=== PATIENT | female | born 1945 | race Caucasian/White ===

== ENCOUNTER → 2018-01-22 12:56 | Outpatient (CLI) | payer MEDICARE, SELFPAY ==
--- NOTE | 2018-01-22 13:08 | XR_ITS ---
XR chest 2V HISTORY: ITS.REASON: COPD,SHORTNESS OF BREATH ORDERING PHYSICIAN: Robyn Liu PATIENT AGE: 72 years COMPARISON: 06/23/2009 FINDINGS: The cardiomediastinal silhouette and pulmonary vascularity are within normal limits. There is hyperinflation with eventration of the hemidiaphragms consistent with chronic obstructive pulmonary disease. No lobar consolidation or collapse. No acute bony anomalies. IMPRESSION: COPD with hyperinflation. The hyperinflation is worse on today's exam than when compared to the previous exam
[2018-01-22 13:10] LABS: Basophils # 0.1 K/mm3 (0-0.2); Basophils % 0.8 % (0.1-2.0); Eosinophils # 0.2 K/mm3 (0.0-0.4); Eosinophils % 1.9 % (0.1-12.0); Hematocrit 46.3 % (37.0-47.0); Hemoglobin 15.2 g/dL (12.2-16.2); Lymphocytes # 3.4 K/mm3 (0.7-4.5); Lymphocytes % 29.5 K/mm3 (10-50); Mean Corpuscular HGB Conc 32.8 g/dL (31.8-35.4); Mean Corpuscular Hemoglobin 30.2 pg (27.0-31.2); Mean Corpuscular Volume 92.2 fl (81-99); Mean Platelet Volume 7.8 fl (7.4-10.4); Monocytes # 0.8 K/mm3 (0.1-1.0); Monocytes % 6.8 % (1.7-9.3); Platelet Count 305 K/mm3 (142-424); Red Blood Count 5.02 M/mm3 (4.20-5.40); Red Cell Distribution Width 13.3 % (11.5-17.5); White Blood Count 11.5 K/mm3 (4.8-10.8)
[2018-01-22 13:21] LABS: Alanine Aminotransferase 26 U/L (12-78); Albumin Level 3.5 gm/dL (3.4-5.0); Albumin/Globulin Ratio 0.9 (1.1-1.8); Alkaline Phosphatase 97 U/L (46-116); Aspartate Amino Transferase 12 U/L (15-37); Bilirubin,Total 0.4 mg/dL (0.2-1.0); Blood Urea Nitrogen 20 mg/dL (7-18); Calcium 9.5 mg/dL (8.5-10.1); Carbon Dioxide 34 mmol/L (21.0-32.0); Chloride 102 mmol/L (98-107); Creatinine,Serum 0.84 mg/dL (0.55-1.02); Estimated Glomerular Filt Rate 67 ml/min (>60); GFR (African American) 81 ML/MIN (>60); Glucose 169 mg/dL (74-106); Sodium 142 mmol/L (136-145); Total Protein,Serum 7.5 gm/dL (6.4-8.2)
== END ==
PROVIDERS: Visit Provider Nurse Practitioner Family
DX: J44.1 Chronic obstructive pulmonary disease with (acute) exacerbation (principal); R06.02 Shortness of breath
CPT/HCPCS: 36415; 71046; 80053; 85025

== ENCOUNTER 2019-06-25 14:44 | Inpatient (IN) ==
--- NOTE | 2019-06-25 16:08 | History & Physical Report ---
*Admission Date: 06/25/19 *Chief complaint: shortness of breath, weakness *History of present illness: 73 year old female with a long history of restrictive airway disease presented to PCP office with persistent shortness of breath, weakness and malaise. Symptoms began approx 3 weeks ago. She was initially seen on 06/11 for COPD exac and was given Kenalog and Doxycycline x 10 days. She had no improvement of symptoms and returned to the office 3 days ago. She was started Levaquin and prednisone. Today, patient reports minimal improvement of symptoms. 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 No fevers. She has been using neb treatments 4 times a day "which doesn't seem to help." States she is "weak" and feels "exhausted." On exam, she was noted to have oxygen saturations 90% RA which is much lower than her baseline of 95% RA and was extremely dyspneic with minimal exertion. Patient was direct admitted to [facility] for IVF abx and further evaluation. [facility] History I have reviewed the patient's past medical history: Yes Medical History: Reports:: Chronic Obstructive Pulmonary Disease (COPD), Diabetes Mellitus Type 2, Hyperlipidemia, Hypertension, Lung Disease *Have you ever received a pneumonia vaccine?: Yes *Have you received a flu vaccine this season?: No Other Medical History: Reports: Hypothyroidism Other Surgeries: Yes: Other Comment: lithotripsy - *Social History Educational Level: Completed High School Smoking Status: Former smoker Alcohol Intake: never *Occupational Status:: retired *Travel in the last 8 weeks: None Family Hx:: No significant family history Review of Systems - Review of Systems Review of systems:: pertinent systems reviewed and negative unless documented below - Constitutional Reports malaise, Reports weakness - *Respiratory Reports cough, Reports shortness of breath, Reports wheezing Meds Allergies Allergy/AdvReac Type Severity Reaction Status Date / Time No Known Allergies Allergy Unverified 09/09/17 15:13 Exam Narrative: Alert and oriented x3. Rate and rhythm regular. No LE edema. Lung sounds with poor air movement, coarse crackles bilateral bases. Abdomen soft and nontender. ENT exam unremarkable. No cervical LAD. No JVD. Skin, pink, warm and dry. 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 Diabetes mellitus complication status: without complication Qualified Code(s): E11.9 - Type 2 diabetes mellitus without complications Category: Medical Code(s): E11.9 - Type 2 diabetes mellitus without complications (3) Hypothyroid Status: Chronic Qualifiers: Hypothyroidism type: acquired Qualified Code(s): E03.9 - Hypothyroidism, unspecified Category: Medical Code(s): E03.9 - Hypothyroidism, unspecified (4) REAGAN (obstructive sleep apnea) Status: Chronic Category: Medical Code(s): G47.33 - Obstructive sleep apnea (adult) (pediatric) - Assessment and plan all Dx Assessment and Plan for all problems:: Admit on CAP protocol with broad spectrum abx with Zosyn and Tobra.
[2019-06-25 17:42] LABS: Basophils % 0.3 % (0.1-2.0); Hematocrit 42.9 % (37.0-47.0); Hemoglobin 13.1 g/dL (12.2-16.2); Lymphocytes # 1.1 K/mm3 (0.7-4.5); Lymphocytes % 10.2 % (10-50); Mean Corpuscular HGB Conc 30.4 g/dL (31.8-35.4); Mean Corpuscular Volume 98.4 fl (81-99); Mean Platelet Volume 8.8 fl (7.4-10.4); Monocytes # 0.5 K/mm3 (0.1-1.0); Monocytes % 4.4 % (1.7-9.3); Neutrophils # 9.4 K/mm3 (1.8-7.8); Neutrophils % 85.1 % (37.0-80.0); Platelet Count 276 K/mm3 (142-424); Red Blood Count 4.36 M/mm3 (4.20-5.40); Red Cell Distribution Width 14.2 % (11.5-17.5)
[2019-06-25 17:49] LABS: Albumin/Globulin Ratio 0.9 (1.1-1.8); Anion Gap 13.2 mEq/L (5-15); Bilirubin,Total 0.4 mg/dL (0.2-1.0); Calcium 8.9 mg/dL (8.5-10.1); Globulin 3.5 gm/dl (1.3-3.2); Total Protein,Serum 6.5 gm/dL (6.4-8.2)
[2019-06-25 17:56] LABS: Eosinophils % 1 % (0-3); Lymphocytes % 11 % (10-50); Monocytes % 4 % (2-9); Neutrophils % 84 % (42-76); RBC Morphology Normal; Total Cells Counted 100
[2019-06-26 08:18] LABS: Basophils # 0.1 K/mm3 (0-0.2); Basophils % 0.5 % (0.1-2.0); Eosinophils # 0.1 K/mm3 (0.0-0.4); Eosinophils % 0.6 % (0.1-12.0); Hematocrit 44.4 % (37.0-47.0); Hemoglobin 13.1 g/dL (12.2-16.2); Lymphocytes # 4.3 K/mm3 (0.7-4.5); Lymphocytes % 33.2 % (10-50); Mean Corpuscular HGB Conc 29.5 g/dL (31.8-35.4); Mean Corpuscular Volume 99.1 fl (81-99); Mean Platelet Volume 8.6 fl (7.4-10.4); Monocytes # 0.9 K/mm3 (0.1-1.0); Neutrophils # 7.5 K/mm3 (1.8-7.8); Neutrophils % 58.7 % (37.0-80.0); Platelet Count 296 K/mm3 (142-424); Red Blood Count 4.48 M/mm3 (4.20-5.40); Red Cell Distribution Width 14.3 % (11.5-17.5); White Blood Count 12.8 K/mm3 (4.8-10.8)
[2019-06-26 08:42] LABS: Anion Gap 8.7 mEq/L (5-15); Calcium 8.8 mg/dL (8.5-10.1); Tobramycin,Random 1.6 ug/ml
--- NOTE | 2019-06-26 08:48 | Progress Note ---
Internal Medicine - PN: Subj *Date: 06/26/19 *Time: 08:47 Interval history: Patient overall feels some better. Continues to have some tightness when she breathes. No fevers. Exam Vital signs and Labs for Last 24 Hours: Temp Pulse Resp BP Pulse Ox 97.8 F 114 H 18 150/87 H 94 L 06/26/19 08:00 06/26/19 08:00 06/26/19 08:00 06/26/19 08:00 06/26/19 08:00 Laboratory Results - last 24 hr 06/25/19 17:20: WBC 11.0 H, RBC 4.36, Hgb 13.1, Hct 42.9, MCV 98.4, MCH 29.9, MCHC 30.4 L, RDW 14.2, Plt Count 276, MPV 8.8, Neut % (Auto) 85.1 H, Lymph % (Auto) 10.2, [place] % (Auto) 4.4, Eos % (Auto) 0.0 L, Baso % (Auto) 0.3, Neut # (Auto) 9.4 H, Lymph # (Auto) 1.1, [place] # (Auto) 0.5, Eos # (Auto) 0.0, Baso # (Auto) 0.0, Total Counted 100, Neutrophils % (Manual) 84 H, Lymphocytes % (Manual) 11, Monocytes % (Manual) 4, Eosinophils % (Manual) 1, Platelet Estimate Normal, RBC Morphology Normal 06/25/19 17:20: Sodium 137, Potassium 4.2, Chloride 99, Carbon Dioxide 29, Anion Gap 13.2, BUN 20 H, Creatinine 1.27 H, Estimated Creat Clear 54, Estimated GFR 41 L, Est GFR ( Amer) 50 L, Glucose 466 H*, Calcium 8.9, Total Bilirubin 0.4, AST 11 L, ALT 19, Alkaline Phosphatase 72, Total Protein 6.5, Albumin 3.0 L , Globulin 3.5 H, Albumin/Globulin Ratio 0.9 L 06/25/19 20:42: POC Glucose 240 H 06/26/19 00:15: Random Tobramycin 7.8 06/26/19 06:18: POC Glucose 253 H 06/26/19 08:03: WBC 12.8 H, RBC 4.48, Hgb 13.1, Hct 44.4, MCV 99.1 H, MCH 29.2, MCHC 29.5 L, RDW 14.3, Plt Count 296, MPV 8.6, Neut % (Auto) 58.7, Lymph % (Auto) 33.2, [place] % (Auto) 7.0, Eos % (Auto) 0.6, Baso % (Auto) 0.5, Neut # (Auto) 7.5, Lymph # (Auto) 4.3, [place] # (Auto) 0.9, Eos # (Auto) 0.1, Baso # (Auto) 0.1 06/26/19 08:03: Sodium 140, Potassium 3.7, Chloride 103, Carbon Dioxide 32, Anion Gap 8.7, BUN 16, Creatinine 0.95 D, Estimated Creat Clear 70, Estimated GFR 58 L, Est GFR ( Amer) 70 D, Glucose 257 H D, Calcium 8.8, Random Tobramycin 1.6 I & O for Last 24 hours: Intake & Output 06/23/19 06/24/19 06/25/19 06/26/19 11:59 11:59 11:59 11:59 Intake Total 1025 / 1025 Balance 1025 / 1025 Weight 194 lb Microbiology Reports for the Last 24 Hours: Microbiology 06/25/19 18:45 Sputum - Expectorated Sputum Gram Stain - Final 06/25/19 18:45 Sputum - Expectorated Sputum Sputum Culture - Preliminary Narrative: Pleasant. Alert, oriented x3. Lungs have diminished air entry bilaterally, slightly improved over exam middle of last week. Heart rate regular. No distal edema or perfusion deficits. Oropharynx clear. Scleral icterus is not noted, no JVD. Abdomen soft and nontender. Neurologic exam intact Assessment and Plan (1) COPD exacerbation Current visit: No Status: Acute Category: Medical Code(s): J44.1 - Chronic obstructive pulmonary disease with (acute) exacerbation (2) Type 2 diabetes mellitus Current visit: No Status: Chronic Qualifiers: Diabetes mellitus assisted insulin use: without assisted use Diabetes mellitus complication status: without complication Qualified Code(s): E11.9 - Type 2 diabetes mellitus without complications Category: Medical Code(s): E11.9 - Type 2 diabetes mellitus without complications (3) Hypothyroid Current visit: No Status: Chronic Qualifiers: Hypothyroidism type: acquired Qualified Code(s): E03.9 - Hypothyroidism, unspecified Category: Medical Code(s): E03.9 - Hypothyroidism, unspecified (4) REAGAN (obstructive sleep apnea) Current visit: No Status: Chronic Category: Medical Code(s): G47.33 - Obstructive sleep apnea (adult) (pediatric) - Assessment and plan all Dx Assessment and Plan for all problems:: Seems to be improving. I will add steroids given the tight air movement and COPD history. Increase diabetes sliding scale to medium intensity. Upper respiratory PCR to check for viral pathogens given negative chest x-ray. Await sputum culture final result.
[2019-06-26 09:44] LABS: Coronavirus 229E Not Detected (NotDetected); Coronavirus NL63 Not Detected (NotDetected); Coronavirus OC43 Not Detected (NotDetected); Coronovirus HKU1,PCR Not Detected (NotDetected)
--- NOTE | 2019-06-26 10:51 | Pharmacy Consult Notes ---
[facility] Pharmacy VTE Monitoring - Patient Demographics Admission date: 06/26/19 Report Date: 06/26/19 Time: 10:50 Allergies/Adverse Reactions: Patient Allergies No Known Allergies Allergy (Unverified 09/09/17 15:13) Height: 1.57 m Weight: 87.997 kg - VTE Risk Labs: VTE Related Lab Results Hgb 13.1 g/dL (12.2-16.2) 06/26/19 08:03 Hct 44.4 % (37.0-47.0) 06/26/19 08:03 Plt Count 296 K/mm3 (142-424) 06/26/19 08:03 BUN 16 mg/dL (7-18) 06/26/19 08:03 Creatinine 0.95 mg/dL (0.55-1.02) D 06/26/19 08:03 Estimated Creat Clear 70 mL/min (50-200) 06/26/19 08:03 Was VTE Risk Assessment Performed: Yes VTE Score: 4 VTE Risk Level: Low Risk - Prophylaxis Types of VTE Prophylaxis: TEDS Knee High (NILS HOSE ORDER PLACED)
--- NOTE | 2019-06-26 13:21 | Pharmacy Consult Notes ---
- Pharmacy Consult Date: 06/26/19 Time: 13:20 Referring provider: DR. GONSALEZ Reason for Consult:: TOBRAMYCIN DOSING Allergies and ADEs:: Allergies Allergy/AdvReac Type Severity Reaction Status Date / Time No Known Allergies Allergy Unverified 09/09/17 15:13 Home Medications:: Home Medications Medication Instructions Recorded Confirmed Type Budesonide/Formoterol Fumarate 2 puffs IH BID 06/25/19 06/25/19 History [Symbicort 160-4.5 Mcg Inhaler] Levothyroxine Sodium [Synthroid 88 mcg PO DAILY 06/25/19 06/25/19 History 88mcg (0.088mg) tablet] Lisinopril/Hydrochlorothiazide 1 tab PO DAILY 06/25/19 06/25/19 History [Lisinopril-Hctz 10-12.5 mg Tab] Metformin HCl [Metformin 1000mg 1,000 mg PO BIDWM 06/25/19 06/26/19 History Tablets] predniSONE [Deltasone 20mg 20 mg PO DAILY 06/25/19 06/25/19 History tablet] Height: 1.57 m Weight: 87.997 kg Laboratory Results:: Laboratory Results - last 24 hr 06/25/19 17:20: WBC 11.0 H, RBC 4.36, Hgb 13.1, Hct 42.9, MCV 98.4, MCH 29.9, MCHC 30.4 L, RDW 14.2, Plt Count 276, MPV 8.8, Neut % (Auto) 85.1 H, Lymph % (Auto) 10.2, [place] % (Auto) 4.4, Eos % (Auto) 0.0 L, Baso % (Auto) 0.3, Neut # (Auto) 9.4 H, Lymph # (Auto) 1.1, [place] # (Auto) 0.5, Eos # (Auto) 0.0, Baso # (Auto) 0.0, Total Counted 100, Neutrophils % (Manual) 84 H, Lymphocytes % (Manual) 11, Monocytes % (Manual) 4, Eosinophils % (Manual) 1, Platelet Estimate Normal, RBC Morphology Normal 06/25/19 17:20: Sodium 137, Potassium 4.2, Chloride 99, Carbon Dioxide 29, Anion Gap 13.2, BUN 20 H, Creatinine 1.27 H, Estimated Creat Clear 54, Estimated GFR 41 L, Est GFR ( Amer) 50 L, Glucose 466 H*, Calcium 8.9, Total Bilirubin 0.4, AST 11 L, ALT 19, Alkaline Phosphatase 72, Total Protein 6.5, Albumin 3.0 L , Globulin 3.5 H, Albumin/Globulin Ratio 0.9 L 06/25/19 20:42: POC Glucose 240 H 06/26/19 00:15: Random Tobramycin 7.8 06/26/19 06:18: POC Glucose 253 H 06/26/19 08:03: WBC 12.8 H, RBC 4.48, Hgb 13.1, Hct 44.4, MCV 99.1 H, MCH 29.2, MCHC 29.5 L, RDW 14.3, Plt Count 296, MPV 8.6, Neut % (Auto) 58.7, Lymph % (Auto) 33.2, [place] % (Auto) 7.0, Eos % (Auto) 0.6, Baso % (Auto) 0.5, Neut # (Auto) 7.5, Lymph # (Auto) 4.3, [place] # (Auto) 0.9, Eos # (Auto) 0.1, Baso # (Auto) 0.1 06/26/19 08:03: Sodium 140, Potassium 3.7, Chloride 103, Carbon Dioxide 32, Anion Gap 8.7, BUN 16, Creatinine 0.95 D, Estimated Creat Clear 70, Estimated GFR 58 L, Est GFR ( Amer) 70 D, Glucose 257 H D, Calcium 8.8, Random Tobramycin 1.6 06/26/19 09:38: Chlamy pneumoniae PCR Not detected, Adenovirus (PCR) Not detected, B. pertussis DNA (PCR) Not detected, Coronavirus OC43 (PCR) Not detected, Coronavirus HKU1 (PCR) Not detected, Coronavirus 229E (PCR) Not detected, Coronavirus NL63 (PCR) Not detected, Human Metapneumovir PCR Not detected, Influenza A (H1) PCR Not detected, Influ A (H1N1/09) PCR Not detected, Influenza A (H3) PCR Not detected, Influenza Type A (PCR) Not detected, Influenza Type B (PCR) Not detected, M. pneumoniae (PCR) Not detected, Parainfluenza 1 (PCR) Not detected, Parainfluenza 2 (PCR) Not detected, Parainfluenza 3 (PCR) Not detected, Parainfluenza 4 (PCR) Not detected, RSV (PCR) Not detected, Entero/Rhino (PCR) Not detected 06/26/19 11:12: POC Glucose 241 H Medical History: Reports:: Chronic Obstructive Pulmonary Disease (COPD), Diabetes Mellitus Type 2, Hyperlipidemia, Hypertension, Lung Disease Denies:: Cancer, MRSA Assessment and Plan (1) COPD exacerbation Current visit: No Status: Acute Category: Medical Code(s): J44.1 - Chronic obstructive pulmonary disease with (acute) exacerbation (2) Type 2 diabetes mellitus Current visit: No Status: Chronic Qualifiers: Diabetes mellitus intermission coordinator insulin use: without correction use Diabetes mellitus complication status: without complication Qualified Code(s): E11.9 - Type 2 diabetes mellitus without complications Category: Medical Code(s): E11.9 - Type 2 diabetes mellitus without complications (3) Hypothyroid Current visit: No Status: Chronic Qualifiers: Hypothyroidism type: acquired Qualified Code(s): E03.9 - Hypothyroidism, unspecified Category: Medical Code(s): E03.9 - Hypothyroidism, unspecified (4) REAGAN (obstructive sleep apnea) Current visit: No Status: Chronic Category: Medical Code(s): G47.33 - Obstructive sleep apnea (adult) (pediatric) - Assessment and plan all Dx Assessment and Plan for all problems:: BASED ON PATIENT'S TOBRAMYCIN LEVELS OVERNIGHT, RECOMMEND CHANGING DOSING INTERVAL TO Q24H TO START AT 2100 TONIGHT.
[2019-06-27 06:08] LABS: Basophils % 0.1 % (0.1-2.0); Eosinophils % 0.1 % (0.1-12.0); Hematocrit 38.2 % (37.0-47.0); Lymphocytes # 1.2 K/mm3 (0.7-4.5); Lymphocytes % 9.8 % (10-50); Mean Corpuscular HGB Conc 29.6 g/dL (31.8-35.4); Mean Corpuscular Volume 96.8 fl (81-99); Mean Platelet Volume 8.5 fl (7.4-10.4); Monocytes # 0.4 K/mm3 (0.1-1.0); Monocytes % 3.1 % (1.7-9.3); Neutrophils # 10.5 K/mm3 (1.8-7.8); Neutrophils % 86.9 % (37.0-80.0); Platelet Count 265 K/mm3 (142-424); Red Blood Count 3.95 M/mm3 (4.20-5.40); Red Cell Distribution Width 14.2 % (11.5-17.5); White Blood Count 12.1 K/mm3 (4.8-10.8)
[2019-06-27 06:10] LABS: Hemoglobin 11.3 g/dL (12.2-16.2)
[2019-06-27 06:35] LABS: Anion Gap 10.6 mEq/L (5-15); Calcium 8.6 mg/dL (8.5-10.1)
[2019-06-27 06:50] LABS: Hypochromasia 2+; Lymphocytes % 3 % (10-50); Macrocytosis 1+; Monocytes % 1 % (2-9); Neutrophils % 87 % (42-76); Total Cells Counted 100
--- NOTE | 2019-06-27 08:36 | Discharge Summary ---
General - General Admission date:: 06/25/19 Discharge date: 06/27/19 HPI HPI: 73 year old female with a long history of restrictive airway disease presented to PCP office with persistent shortness of breath, weakness and malaise. Symptoms began approx 3 weeks ago. She was initially seen on 06/11 for COPD exac and was given Kenalog and Doxycycline x 10 days. She had no improvement of symptoms and returned to the office 3 days ago. She was started Levaquin and prednisone. Today, patient reports minimal improvement of symptoms. 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 She has been using neb treatments 4 times a day "which doesn't seem to help." States she is "weak" and feels "exhausted." On exam, she was noted to have oxygen saturations 90% RA which is much lower than her baseline of 95% RA and was extremely dyspneic with minimal exertion. Patient was direct admitted to [facility] for IVF abx and further evaluation. Hospital Course Hospital Course: Patient was admitted, placed on broad-spectrum antibiotics and Solu-Medrol, and did well over the next 24 to 42 hours. Labs normalized, oxygen levels improved and she did well on room air oxygen. This morning she was feeling much better, able to move around the room without worsening shortness of air, and was eating breakfast well. She will be discharged home on Augmentin, azithromycin for more anti- inflammatory effect and prednisone. We will follow her up in the office in 4 or 5 days. Objective Vital signs: Temp Pulse Resp BP Pulse Ox 97.9 F 104 H 16 140/77 93 L 06/27/19 04:00 06/27/19 07:37 06/27/19 04:00 06/27/19 04:00 06/27/19 04:00 Narrative: Patient is alert, oriented x3. Oropharynx clear, no JVD. Oropharynx moist and clear. No cranial nerve deficits. Lungs have better air entry bilaterally. Minimal expiratory wheezing but vastly improved. Heart rate regular without murmurs. Abdomen soft nontender. No clubbing or edema. No rash noted. Neurologic exam intact. Results Labs on day of discharge: Labs from last 24 hours 06/27/19 06/27/19 06/27/19 06:06 05:50 05:50 WBC 12.1 H RBC 3.95 L Hgb 11.3 L D Hct 38.2 MCV 96.8 MCH 28.6 MCHC 29.6 L RDW 14.2 Plt Count 265 MPV 8.5 Neut % (Auto) 86.9 H Lymph % (Auto) 9.8 L [place] % (Auto) 3.1 Eos % (Auto) 0.1 Baso % (Auto) 0.1 Neut # (Auto) 10.5 H Lymph # (Auto) 1.2 [place] # (Auto) 0.4 Eos # (Auto) 0.0 Baso # (Auto) 0.0 Total Counted 100 Neutrophils % (Manual) 87 H Band Neutrophils % 9.0 H Lymphocytes % (Manual) 3 L Monocytes % (Manual) 1 L Platelet Estimate Normal Hypochromasia 2+ Macrocytosis 1+ Sodium 138 Potassium 4.6 D Chloride 102 Carbon Dioxide 30 Anion Gap 10.6 BUN 21 H D Creatinine 0.80 Estimated Creat Clear 71 Estimated GFR 70 Est GFR ( Amer) 85 D Glucose 354 H D POC Glucose 327 H* Calcium 8.6 Random Tobramycin Chlamy pneumoniae PCR Adenovirus (PCR) B. pertussis DNA (PCR) Coronavirus OC43 (PCR) Coronavirus HKU1 (PCR) Coronavirus 229E (PCR) Coronavirus NL63 (PCR) Human Metapneumovir PCR Influenza A (H1) PCR Influ A (H1N1/09) PCR Influenza A (H3) PCR Influenza Type A (PCR) Influenza Type B (PCR) M. pneumoniae (PCR) Parainfluenza 1 (PCR) Parainfluenza 2 (PCR) Parainfluenza 3 (PCR) Parainfluenza 4 (PCR) RSV (PCR) Entero/Rhino (PCR) 06/26/19 06/26/19 06/26/19 20:46 16:50 11:12 WBC RBC Hgb Hct MCV MCH MCHC RDW Plt Count MPV Neut % (Auto) Lymph % (Auto) [place] % (Auto) Eos % (Auto) Baso % (Auto) Neut # (Auto) Lymph # (Auto) [place] # (Auto) Eos # (Auto) Baso # (Auto) Total Counted Neutrophils % (Manual) Band Neutrophils % Lymphocytes % (Manual) Monocytes % (Manual) Platelet Estimate Hypochromasia Macrocytosis Sodium Potassium Chloride Carbon Dioxide Anion Gap BUN Creatinine Estimated Creat Clear Estimated GFR Est GFR ( Amer) Glucose POC Glucose 330 H* 397 H* 241 H Calcium Random Tobramycin Chlamy pneumoniae PCR Adenovirus (PCR) B. pertussis DNA (PCR) Coronavirus OC43 (PCR) Coronavirus HKU1 (PCR) Coronavirus 229E (PCR) Coronavirus NL63 (PCR) Human Metapneumovir PCR Influenza A (H1) PCR Influ A (H1N1/) PCR Influenza A (H3) PCR Influenza Type A (PCR) Influenza Type B (PCR) M. pneumoniae (PCR) Parainfluenza 1 (PCR) Parainfluenza 2 (PCR) Parainfluenza 3 (PCR) Parainfluenza 4 (PCR) RSV (PCR) Entero/Rhino (PCR) 06/26/19 06/26/19 09:38 08:03 WBC RBC Hgb Hct MCV MCH MCHC RDW Plt Count MPV Neut % (Auto) Lymph % (Auto) [place] % (Auto) Eos % (Auto) Baso % (Auto) Neut # (Auto) Lymph # (Auto) [place] # (Auto) Eos # (Auto) Baso # (Auto) Total Counted Neutrophils % (Manual) Band Neutrophils % Lymphocytes % (Manual) Monocytes % (Manual) Platelet Estimate Hypochromasia Macrocytosis Sodium 140 Potassium 3.7 Chloride 103 Carbon Dioxide 32 Anion Gap 8.7 BUN 16 Creatinine 0.95 D Estimated Creat Clear 70 Estimated GFR 58 L Est GFR ( Amer) 70 D Glucose 257 H D POC Glucose Calcium 8.8 Random Tobramycin 1.6 Chlamy pneumoniae PCR Not detected Adenovirus (PCR) Not detected B. pertussis DNA (PCR) Not detected Coronavirus OC43 (PCR) Not detected Coronavirus HKU1 (PCR) Not detected Coronavirus 229E (PCR) Not detected Coronavirus NL63 (PCR) Not detected Human Metapneumovir PCR Not detected Influenza A (H1) PCR Not detected Influ A (H1N1/09) PCR Not detected Influenza A (H3) PCR Not detected Influenza Type A (PCR) Not detected Influenza Type B (PCR) Not detected M. pneumoniae (PCR) Not detected Parainfluenza 1 (PCR) Not detected Parainfluenza 2 (PCR) Not detected Parainfluenza 3 (PCR) Not detected Parainfluenza 4 (PCR) Not detected RSV (PCR) Not detected Entero/Rhino (PCR) Not detected Preliminary micro results at discharge 06/25/19 18:45 Sputum Culture - Preliminary Sputum - Expectorated Sputum DS: Diagnosis - Discharge Diagnosis (1) COPD exacerbation Status: Acute (2) Type 2 diabetes mellitus Status: Chronic (3) Hypothyroid Status: Chronic (4) REAGAN (obstructive sleep apnea) Status: Chronic Discharge Plan - Patient Discharge Instructions ACTIVITY: Continue current activity DIET: continue same diet Patient Instructions: DI for Chronic Obstructive Pulmonary Disease, DI for Pneumonia -- Adult - Follow up Plan Follow up with: Robyn Liu APRN [Nurse Practitioner] - 07/01/19 11:00 am Disposition: Home, Self-Half-Way Medications: Home Medications Medication Instructions Recorded Confirmed Type Budesonide/Formoterol Fumarate 2 puffs IH BID 06/25/19 06/25/19 History [Symbicort 160-4.5 Mcg Inhaler] Levothyroxine Sodium [Synthroid 88 mcg PO DAILY 06/25/19 06/25/19 History 88mcg (0.088mg) tablet] Lisinopril/Hydrochlorothiazide 1 tab PO DAILY 06/25/19 06/25/19 History [Lisinopril-Hctz 10-12.5 mg Tab] Metformin HCl [Metformin 1000mg 1,000 mg PO BIDWM 06/25/19 06/26/19 History Tablets] predniSONE [Deltasone 20mg 20 mg PO DAILY 06/25/19 06/25/19 History tablet] Amoxicillin/Potassium Clav 1 tab PO Q12H #10 tab 06/27/19 Rx [Augmentin 875-125 Tablet] Azithromycin [Zithromax 250mg 250 mg PO DIRECTED #6 tab 06/27/19 Rx tab] Promethazine/Dextromethorphan 5 ml PO Q6HP PRN #240 ml 06/27/19 Rx [Promethazine-Dm Syrup] Promethazine/Dextromethorphan 5 ml PO Q6HP PRN #240 ml 06/27/19 Rx [Promethazine-Dm Syrup] predniSONE [Deltasone 20mg 20 mg PO BID 7 Days #14 tab 06/27/19 Rx tablet] Prescriptions/Medication Reconciliation: New predniSONE [Deltasone 20mg tablet] 20 mg PO BID 7 Days #14 tab Promethazine/Dextromethorphan [Promethazine-Dm Syrup] 5 ml PO Q6HP PRN #240 ml PRN Reason: Cough Azithromycin [Zithromax 250mg tab] 250 mg PO DIRECTED #6 tab Amoxicillin/Potassium Clav [Augmentin 875-125 Tablet] 1 tab PO Q12H #10 tab Promethazine/Dextromethorphan [Promethazine-Dm Syrup] 5 ml PO Q6HP PRN #240 ml PRN Reason: Cough Continued Budesonide/Formoterol Fumarate [Symbicort 160-4.5 Mcg Inhaler] 2 puffs IH BID Metformin HCl [Metformin 1000mg Tablets] 1,000 mg PO BIDWM Lisinopril/Hydrochlorothiazide [Lisinopril-Hctz 10-12.5 mg Tab] 1 tab PO DAILY Levothyroxine Sodium [Synthroid 88mcg (0.088mg) tablet] 88 mcg PO DAILY Discontinued predniSONE [Deltasone 20mg tablet] 20 mg PO DAILY - Problem Reconciliation Problems Reviewed?: Yes
== END 2019-06-27 09:43 | disposition home or self-care (01) | DRG 192 ==
LOC: 2ND 16:28
PROVIDERS: ADMIT Internal Medicine Adolescent Medicine; ATTEND Internal Medicine Adolescent Medicine
CPT/HCPCS: 36415; 71020; 71046; 80048; 80053; 80200; 82962; 85007; 85025; 87040; 87070; 87205; 87486; 87581; 87633; 87798; 94640; 94761; J2543

== ENCOUNTER 2019-10-26 16:56 | Observation (INO) ==
[2019-10-26 19:12] LABS: Basophils % 0.3 % (0.1-2.0); Eosinophils % 0.2 % (0.1-12.0); Hematocrit 45.8 % (37.0-47.0); Hemoglobin 14.6 g/dL (12.2-16.2); Lymphocytes # 2.3 K/mm3 (0.7-4.5); Lymphocytes % 16.3 % (10-50); Mean Corpuscular HGB Conc 31.8 g/dL (31.8-35.4); Mean Corpuscular Volume 93.5 fl (81-99); Mean Platelet Volume 8.7 fl (7.4-10.4); Monocytes # 0.8 K/mm3 (0.1-1.0); Monocytes % 5.7 % (1.7-9.3); Neutrophils % 77.6 % (37.0-80.0); Platelet Count 274 K/mm3 (142-424); Red Blood Count 4.89 M/mm3 (4.20-5.40); Red Cell Distribution Width 13.3 % (11.5-17.5); White Blood Count 14.1 K/mm3 (4.8-10.8)
[2019-10-26 19:16] LABS: Calcium 8.9 mg/dL (8.5-10.1)
--- NOTE | 2019-10-27 07:31 | Pharmacy Consult Notes ---
[facility] Pharmacy VTE Monitoring - Patient Demographics Admission date: 10/26/19 Report Date: 10/27/19 Time: 07:31 Allergies/Adverse Reactions: Patient Allergies No Known Allergies Allergy (Unverified 09/09/17 15:13) Height: 1.57 m Weight: 80.314 kg - VTE Risk Labs: VTE Related Lab Results Hgb 14.6 g/dL (12.2-16.2) 10/26/19 18:50 Hct 45.8 % (37.0-47.0) 10/26/19 18:50 Plt Count 274 K/mm3 (142-424) 10/26/19 18:50 BUN 13 mg/dL (7-18) 10/26/19 18:50 Creatinine 0.77 mg/dL (0.55-1.02) 10/26/19 18:50 Estimated Creat Clear 63 mL/min (50-200) 10/26/19 18:50 Was VTE Risk Assessment Performed: Yes VTE Score: 3 VTE Risk Level: Low Risk - Prophylaxis VTE Prophylaxis Ordered?: Yes Types of VTE Prophylaxis: TEDS Knee High Location of Applied Device: Bilateral Lower Extremeties
--- NOTE | 2019-10-27 08:15 | History & Physical Report ---
*Admission Date: 10/26/19 *Chief complaint: Cough/congestion/shortness of air *History of present illness: 74-year-old white female with long history of COPD, oxygen requiring at night as well as nebulizer requiring has had several frequent exacerbations this summer, who had gone to [facility] with her family about a month ago and felt great but when she returned to [place] was exposed to some allergens, possibly some viral illnesses and is been sick ever since that time. We have treated her with azithromycin twice as well as steroid packs but has not felt much better and came to my office on the day of admission with cough, congestion, found to have 85% saturations on 2 L, dyspneic and uncomfortable and was admitted to hospital for IV therapy with antibiotics, steroids given her failed outpatient therapy of the significant COPD exacerbation. [facility] History I have reviewed the patient's past medical history: Yes Medical History: Reports:: Chronic Obstructive Pulmonary Disease (COPD), Diabetes Mellitus Type 2, Hyperlipidemia, Hypertension, Lung Disease Denies:: Cancer, MRSA *Have you ever received a pneumonia vaccine?: Yes *Have you received a flu vaccine this season?: Yes Other Medical History: Reports: Arthritis, Hypothyroidism Other Surgeries: Yes: Other Amputation: No Fractures: No - *Social History Smoking Status: Former smoker Tobacco Type: cigarettes # Packs/Day (cigarettes): 2 Alcohol Intake: never *Occupational Status:: retired Housing: house Household Members: none *Travel in the last 8 weeks: Inside the [facility] Family Hx:: Coronary Artery Disease, Diabetes, Heart Attack, Hyperlipidemia, Hypertension Review of Systems - Review of Systems Review of systems:: pertinent systems reviewed and negative unless documented below Other than respiratory symptoms complete 10 point review of systems negative Meds Home Medications Medication Instructions Recorded Confirmed Type Budesonide/Formoterol Fumarate 2 puffs IH BID 06/25/19 10/27/19 History [Symbicort 160-4.5 Mcg Inhaler] Levothyroxine Sodium [Synthroid 88 mcg PO DAILY 06/25/19 10/27/19 History 88mcg (0.088mg) tablet] Lisinopril/Hydrochlorothiazide 1 tab PO DAILY 06/25/19 10/27/19 History [Lisinopril-Hctz 10-12.5 mg Tab*] Metformin HCl [Metformin 1000mg 1,000 mg PO BIDWM 06/25/19 10/27/19 History Tablets] Azithromycin [Zithromax 250mg 250 mg PO DIRECTED 10/27/19 10/27/19 History tab] Escitalopram Oxalate 10 mg PO DAILY 10/27/19 10/27/19 History Allergies Allergy/AdvReac Type Severity Reaction Status Date / Time No Known Allergies Allergy Unverified 09/09/17 15:13 Exam Vital signs and Labs for Last 24 Hours: Temp Pulse Resp BP Pulse Ox 97.5 F L 78 18 126/69 95 10/27/19 04:00 10/27/19 04:00 10/27/19 04:00 10/27/19 04:00 10/27/19 04:00 Laboratory Results - last 24 hr 10/26/19 18:50: WBC 14.1 H, RBC 4.89, Hgb 14.6, Hct 45.8, MCV 93.5, MCH 29.8, MCHC 31.8, RDW 13.3, Plt Count 274, MPV 8.7, Neut % (Auto) 77.6, Lymph % (Auto) 16.3, [place] % (Auto) 5.7, Eos % (Auto) 0.2, Baso % (Auto) 0.3, Neut # (Auto) 11.0 H, Lymph # (Auto) 2.3, [place] # (Auto) 0.8, Eos # (Auto) 0.0, Baso # (Auto) 0.0 10/26/19 18:50: Sodium 140, Potassium 4.0, Chloride 99, Carbon Dioxide 34 H, Anion Gap 11.0, BUN 13, Creatinine 0.77, Estimated Creat Clear 63, Estimated GFR 73, Est GFR ( Amer) 89, Glucose 212 H, Calcium 8.9, Magnesium 1.9, C- Reactive Protein 11.0 H 10/26/19 18:50: Lactate 1.3 10/26/19 18:50: Mycoplasma pneumon IgM Non-reactive 10/26/19 21:18: POC Glucose 414 H* 10/27/19 06:05: POC Glucose 261 H I & O for Last 24 hours: Intake & Output 10/24/19 10/25/19 10/26/19 10/27/19 11:59 11:59 11:59 11:59 Intake Total 577 / 577 Balance 577 / 577 Weight 177 lb 1 oz Narrative: Pleasant, talkative, oriented x3. Dyspneic with sentences. Oropharynx clear, no JVD. Otherwise ENT exam clear. Lungs have poor air movement, rhonchi and crackles bilaterally. Some expiratory wheezing. No clubbing or edema. Neurologic exam intact, abdomen soft nontender. Assessment and Plan (1) COPD exacerbation Current visit: No Status: Acute Category: Medical Code(s): J44.1 - Chronic obstructive pulmonary disease with (acute) exacerbation Admit to hospital. IV levofloxacin, steroids. Aggressive pulmonary toilet.
--- NOTE | 2019-10-27 09:09 | Progress Note ---
Internal Medicine - PN: Subj *Date: 10/27/19 *Time: 09:07 Interval history: Patient feels about the same. Still somewhat dyspneic. Is able to sit up on the side of the bed and ate breakfast well. Exam Vital signs and Labs for Last 24 Hours: Temp Pulse Resp BP Pulse Ox 97.5 F L 78 18 126/69 95 10/27/19 04:00 10/27/19 04:00 10/27/19 04:00 10/27/19 04:00 10/27/19 04:00 Laboratory Results - last 24 hr 10/26/19 18:50: WBC 14.1 H, RBC 4.89, Hgb 14.6, Hct 45.8, MCV 93.5, MCH 29.8, MCHC 31.8, RDW 13.3, Plt Count 274, MPV 8.7, Neut % (Auto) 77.6, Lymph % (Auto) 16.3, [place] % (Auto) 5.7, Eos % (Auto) 0.2, Baso % (Auto) 0.3, Neut # (Auto) 11.0 H, Lymph # (Auto) 2.3, [place] # (Auto) 0.8, Eos # (Auto) 0.0, Baso # (Auto) 0.0 10/26/19 18:50: Sodium 140, Potassium 4.0, Chloride 99, Carbon Dioxide 34 H, Anion Gap 11.0, BUN 13, Creatinine 0.77, Estimated Creat Clear 63, Estimated GFR 73, Est GFR ( Amer) 89, Glucose 212 H, Calcium 8.9, Magnesium 1.9, C- Reactive Protein 11.0 H 10/26/19 18:50: Lactate 1.3 10/26/19 18:50: Mycoplasma pneumon IgM Non-reactive 10/26/19 21:18: POC Glucose 414 H* 10/27/19 06:05: POC Glucose 261 H I & O for Last 24 hours: Intake & Output 10/24/19 10/25/19 10/26/19 10/27/19 11:59 11:59 11:59 11:59 Intake Total 577 / 577 Balance 577 / 577 Weight 177 lb 1 oz Narrative: Alert. Oriented x3. Pleasant, talkative. No JVD. Oropharynx clear. Lungs have rhonchi and diminished air movement but symmetric, some expiratory wheezing. Heart rate regular. No edema, clubbing or cyanosis. Neurologically intact. Assessment and Plan (1) COPD exacerbation Current visit: No Status: Acute Category: Medical Code(s): J44.1 - Chronic obstructive pulmonary disease with (acute) exacerbation Add Mucomyst nebs, continue antibiotics and steroids. 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 Continue sliding scale insulin and start her home medications (3) Obesity (BMI 30.0-34.9) Current visit: Yes Status: Acute Category: Medical Code(s): E66.9 - Obesity, unspecified Complicates all aspects of her care (4) Depression Current visit: Yes Status: Acute Category: Medical Code(s): F32.9 - Major depressive disorder, single episode, unspecified Patient was started on Lexapro about 4 to 5 weeks ago. Mental status depression complicates all aspects of her care
--- NOTE | 2019-10-28 08:09 | Discharge Summary ---
General - General Admission date:: 10/26/19 Discharge date: 10/28/19 HPI HPI: 74-year-old white female with long history of COPD, oxygen requiring at night as well as nebulizer requiring has had several frequent exacerbations this summer, who had gone to [place] with her family about a month ago and felt great but when she returned to [place] was exposed to some allergens, possibly some viral illnesses and is been sick ever since that time. We have treated her with azithromycin twice as well as steroid packs but has not felt much better and came to my office on the day of admission with cough, congestion, found to have 85% saturations on 2 L, dyspneic and uncomfortable and was admitted to hospital for IV therapy with antibiotics, steroids given her failed outpatient therapy of the significant COPD exacerbation. Hospital Course Hospital Course: Patient was admitted, because of treatment failures with azithromycin and beta- lactam antibiotics at home she was placed on quinolone therapy with levofloxacin and tolerated this very nicely. Intravenous steroids were also given. The patient was subjected to enhanced pulmonary toilet, with nebs and respiratory therapy treatments. She improved over the next couple of days. Sputum culture so far are nondiagnostic and oxygen requirements have returned to her normal 2 L requirement with acceptable O2 saturations. This morning she was better. Exam has improved. She will be discharged home with the plan as noted below and close follow-up in my office. Of note apparently patient has not been taking metformin because she has heard some advertisements regarding its cancer causing potential. I reassured her that there was no evidence of cancer causing problems with metformin and we will discuss this further in my office. Objective Vital signs: Temp Pulse Resp BP Pulse Ox 98.0 F 95 H 16 120/79 94 L 10/28/19 04:00 10/28/19 05:44 10/28/19 04:00 10/28/19 04:00 10/28/19 05:44 Narrative: Patient is pleasant. Talkative. Alert, oriented x3. Eating breakfast well. ENT exam negative. Lungs have rhonchi but much better air entry. Less tightness, less wheezing. Respiratory rate and heart rate normal. No edema or clubbing. Neurologic exam intact. Abdomen soft nontender. Results Labs on day of discharge: Labs from last 24 hours 10/28/19 10/27/19 10/27/19 05:37 16:41 11:24 POC Glucose 298 H 307 H* 175 H DS: Diagnosis - Discharge Diagnosis (1) COPD exacerbation Status: Acute (2) Type 2 diabetes mellitus Status: Chronic (3) Obesity (BMI 30.0-34.9) Status: Acute (4) Depression Status: Acute Discharge Plan - Patient Discharge Instructions ACTIVITY: Continue current activity DIET: continue same diet Patient Instructions: Chronic Obstructive Pulmonary Disease - Follow up Plan Follow up with: Jovanni Carpio MD [Primary Care Provider] - 11/02/19 Disposition: Home, Self-Intermediate Medications: Home Medications Medication Instructions Recorded Confirmed Type Budesonide/Formoterol Fumarate 2 puffs IH BID 06/25/19 10/27/19 History [Symbicort 160-4.5 Mcg Inhaler] Levothyroxine Sodium [Synthroid 88 mcg PO DAILY 06/25/19 10/27/19 History 88mcg (0.088mg) tablet] Lisinopril/Hydrochlorothiazide 1 tab PO DAILY 06/25/19 10/27/19 History [Lisinopril-Hctz 10-12.5 mg Tab*] Escitalopram Oxalate 10 mg PO DAILY 10/27/19 10/27/19 History levoFLOXacin [Levaquin 500mg 500 mg PO DAILY #5 tab 10/28/19 Rx tab] predniSONE [Deltasone 20mg 20 mg PO BID 7 Days #14 tab 10/28/19 Rx tablet] Prescriptions/Medication Reconciliation: New levoFLOXacin [Levaquin 500mg tab] 500 mg PO DAILY #5 tab predniSONE [Deltasone 20mg tablet] 20 mg PO BID 7 Days #14 tab Continued Budesonide/Formoterol Fumarate [Symbicort 160-4.5 Mcg Inhaler] 2 puffs IH BID Escitalopram Oxalate 10 mg PO DAILY Lisinopril/Hydrochlorothiazide [Lisinopril-Hctz 10-12.5 mg Tab*] 1 tab PO DAILY Levothyroxine Sodium [Synthroid 88mcg (0.088mg) tablet] 88 mcg PO DAILY - Problem Reconciliation Problems Reviewed?: Yes
--- NOTE | 2019-10-28 15:33 | Electrocardiograph Report ---
APPROVED REPORT Exam: Resting ECG HR:100 bpm ECG Measurements Heart Rate 100 AXES [place] 134 P 67 QRSd 94 QRS 72 QT 354 T19 QTc 456 <Conclusion> Normal sinus rhythm T wave abnormality, consider inferior ischemia Abnormal ECG Electronically signed by : Jovanni Carpio, 10/28/2019 15:32:42
== END 2019-10-28 13:45 | disposition home or self-care (01) ==
LOC: 2ND
PROVIDERS: ADMIT Internal Medicine Adolescent Medicine; ATTEND Internal Medicine Adolescent Medicine
CPT/HCPCS: 71020; 71046; 80048; 82962; 83605; 83735; 85025; 86140; 86738; 87040; 87070; 87205; 93005; 94640; 94761; G0378; J1956

== ENCOUNTER → 2020-07-02 08:37 | Outpatient (CLI) | payer MEDICARE, SELFPAY | PROVIDERS: PCP Internal Medicine Adolescent Medicine; Visit Provider Internal Medicine Adolescent Medicine | DX: Z03.818 Encounter for observation for suspected exposure to other biological agents ruled out (principal) | CPT/HCPCS: U0003 ==

== ENCOUNTER → 2021-04-25 08:20 | Outpatient (CLI) | payer MEDICARE, SELFPAY ==
[2021-04-25 09:19] LABS: Basophils # 0.2 K/mm3 (0-0.2); Eosinophils # 0.2 K/mm3 (0.0-0.4); Eosinophils % 2.3 % (0.1-12.0); Hematocrit 42.4 % (37.0-47.0); Hemoglobin 13.6 g/dL (12.2-16.2); Lymphocytes # 3.8 K/mm3 (0.7-4.5); Lymphocytes % 42.1 % (10-50); Mean Corpuscular Hemoglobin 29.1 pg (27.0-31.2); Mean Corpuscular Volume 90.8 fl (81-99); Mean Platelet Volume 8.4 fl (7.4-10.4); Monocytes # 0.6 K/mm3 (0.1-1.0); Monocytes % 6.1 % (1.7-9.3); Neutrophils # 4.3 K/mm3 (1.8-7.8); Neutrophils % 47.4 % (37.0-80.0); Platelet Count 237 K/mm3 (142-424); Red Blood Count 4.67 M/mm3 (4.20-5.40)
[2021-04-25 09:32] LABS: Chloride 98 mmol/L (98-107)
[2021-04-25 09:33] LABS: Hemoglobin A1C 10.6 % (4.0-6.0); Potassium 4.5 mmoL/L (3.5-5.1); Sodium 141 mmol/L (136-145)
[2021-04-25 09:35] LABS: Alanine Aminotransferase 16 U/L (12-78); Alkaline Phosphatase 79 U/L (38-126); Anion Gap 12.5 mEq/L (5-15); Aspartate Amino Transferase 22 U/L (14-36); Bilirubin,Total 0.6 mg/dl (0.2-1.3); Blood Urea Nitrogen 12 mg/dl (7-17); Carbon Dioxide 35 mmol/L (22.0-30.0); Estimated Glomerular Filt Rate 97 ml/min (>60); GFR (African American) 118 ML/MIN (>60)
[2021-04-25 09:36] LABS: Albumin Level 4.2 g/dl (3.5-5.0); Albumin/Globulin Ratio 1.7 (1.1-1.8); Calcium 9.8 mg/dl (8.4-10.2); Chol/HDL Ratio 3.5 (1-3.5); Cholesterol 224 mg/dl (140-200); Globulin 2.5 g/dL (1.3-3.2); Glucose 239 mg/dl (74-100); HDL Cholesterol 64 mg/dl (40-60); Magnesium 1.5 mg/dl (1.6-2.3); Total Protein,Serum 6.7 g/dl (6.3-8.2); Triglycerides 151 mg/dl (30-150); VLDL Cholesterol 30 mg/dL (0-40)
[2021-04-25 09:47] LABS: Direct LDL Cholesterol 115.25 mg/dL (100-129)
[2021-04-25 10:06] LABS: Thyroid Stimulating Hormone 2.16 uIU/mL (0.465-4.68)
== END ==
PROVIDERS: Visit Provider Internal Medicine Adolescent Medicine
DX: R00.2 Palpitations (principal); E03.9 Hypothyroidism, unspecified; E11.9 Type 2 diabetes mellitus without complications
CPT/HCPCS: 36415; 80053; 80061; 83036; 83735; 84443; 85025; 93225; 93226

== ENCOUNTER → 2022-03-21 18:14 | Outpatient (CLI) | payer MEDICARE, SELFPAY ==
[2022-03-21 19:42] LABS: Basophils # 0.1 K/mm3 (0-0.2); Basophils % 0.7 % (0.1-2.0); Eosinophils # 0.1 K/mm3 (0.0-0.4); Eosinophils % 1.7 % (0.1-12.0); Hematocrit 41.2 % (37.0-47.0); Hemoglobin 13.8 g/dL (12.2-16.2); Lymphocytes # 2.3 K/mm3 (0.7-4.5); Lymphocytes % 28.4 % (10-50); Mean Corpuscular HGB Conc 33.5 g/dL (31.8-35.4); Mean Corpuscular Hemoglobin 30.2 pg (27.0-31.2); Mean Corpuscular Volume 90.4 fl (81-99); Mean Platelet Volume 8.3 fl (7.4-10.4); Monocytes # 0.4 K/mm3 (0.1-1.0); Monocytes % 4.9 % (1.7-9.3); Neutrophils # 5.3 K/mm3 (1.8-7.8); Neutrophils % 64.3 % (37.0-80.0); Platelet Count 292 K/mm3 (142-424); Red Blood Count 4.56 M/mm3 (4.20-5.40); Red Cell Distribution Width 12.8 % (11.5-17.5); White Blood Count 8.2 K/mm3 (4.8-10.8)
[2022-03-21 20:14] LABS: Chloride 98 mmol/L (98-107); Sodium 137 mmol/L (136-145)
[2022-03-21 20:16] LABS: Blood Urea Nitrogen 15 mg/dl (7-17); Estimated Glomerular Filt Rate 81 ml/min (>60); GFR (African American) 98 ML/MIN (>60)
[2022-03-21 20:17] LABS: Alanine Aminotransferase 22 U/L (12-78); Albumin/Globulin Ratio 1.5 (1.1-1.8); Alkaline Phosphatase 71 U/L (38-126); Aspartate Amino Transferase 26 U/L (14-36); Bilirubin,Total 0.2 mg/dl (0.2-1.3); Calcium 9.6 mg/dl (8.4-10.2); Carbon Dioxide 32 mmol/L (22.0-30.0); Cholesterol 243 mg/dl (140-200); Globulin 2.6 g/dL (1.3-3.2); Glucose 217 mg/dl (74-100); Total Protein,Serum 6.6 g/dl (6.3-8.2); Triglycerides 166 mg/dl (30-150); VLDL Cholesterol 33 mg/dL (0-40)
[2022-03-21 20:18] LABS: HDL Cholesterol 61 mg/dl (40-60)
[2022-03-21 20:21] LABS: Hemoglobin A1C 8.2 % (4.0-6.0)
[2022-03-21 20:29] LABS: Direct LDL Cholesterol 142.91 mg/dL (100-129)
[2022-03-21 20:48] LABS: Thyroid Stimulating Hormone 1.44 uIU/mL (0.465-4.68)
== END ==
LOC: LAB 18:15 → LAB.DROPOF 04-02 06:02
PROVIDERS: Visit Provider Internal Medicine Adolescent Medicine
DX: J44.1 Chronic obstructive pulmonary disease with (acute) exacerbation (principal); E11.9 Type 2 diabetes mellitus without complications; Z79.84 Long term (current) use of oral hypoglycemic drugs
CPT/HCPCS: 80053; 80061; 83036; 84443; 85025

== ENCOUNTER → 2022-03-22 11:05 | Outpatient (CLI) | payer MEDICARE, SELFPAY | PROVIDERS: PCP Internal Medicine Adolescent Medicine; Visit Provider Internal Medicine Adolescent Medicine | DX: E11.9 Type 2 diabetes mellitus without complications (principal) ==

== ENCOUNTER → 2023-02-04 12:55 | Outpatient (CLI) | payer MEDICARE, SELFPAY ==
--- NOTE | 2023-02-04 13:00 | XR_ITS ---
FINAL REPORT CLINICAL HISTORY: left knee pain FINDINGS: Left knee Three views were obtained. There is no acute fracture or dislocation. There are mild degenerative changes. No joint effusion is identified. There is vascular calcification. IMPRESSION: Mild degenerative changes. Reviewed, Interpreted and Dictated by Juwan Romero III, MD Transcribed by Steffi Pickens Authenticated and [facility]
--- NOTE | 2023-02-04 13:00 | XR_ITS ---
FINAL REPORT CLINICAL HISTORY: right knee pain FINDINGS: Right knee Four views were obtained. There is no acute fracture or dislocation. Mild and moderate degenerative changes. There is narrowing of the medial compartment. There is mild lateral subluxation of the tibia in relation to the distal femur. Note is made of mild vascular calcification. IMPRESSION: Degenerative changes. Reviewed, Interpreted and Dictated by Juwan Romero III, MD Transcribed by Steffi Pickens Authenticated and [facility]
== END ==
PROVIDERS: PCP Family Medicine; Visit Provider Orthopaedic Surgery
DX: M25.562 Pain in left knee (principal); M25.561 Pain in right knee
CPT/HCPCS: 73562

== ENCOUNTER 2023-02-28 22:31 | Observation (INO) | payer MEDICARE, SELFPAY ==
[2023-02-28 22:32] VITALS: BP 153/88; PULSE 115; RESP 24; TEMP 36.8; O2SAT 82; BMI 31.5
[2023-02-28 22:40] VITALS: BMI 32.4
--- NOTE | 2023-02-28 22:41 | XR_ITS ---
PROCEDURE INFORMATION: Exam: XR Chest Exam date and time: 02/28/2023 11:03 PM Age: 77 years old Clinical indication: Shortness of breath; Additional info: SOA TECHNIQUE: Imaging protocol: Radiologic exam of the chest. Views: 1 view. COMPARISON: No relevant prior studies available. FINDINGS: Lungs: Bibasilar subsegmental atelectasis. Pleural spaces: Probable small right pleural effusion. Heart/Mediastinum: Unremarkable. No cardiomegaly. Bones/joints: Unremarkable. IMPRESSION: Probable small right pleural effusion. Bibasilar subsegmental atelectasis.
--- NOTE | 2023-02-28 22:41 | ECG_ITS ---
APPROVED REPORT Exam: Resting ECG HR:115 bpm ECG Measurements Heart Rate 115 AXES [place] 184 P 88 QRSd 110 QRS 84 QT 335 T 35 QTc [address] DEVIATION AND MODERATE T-WAVE ABNORMALITY are old findings ABNORMAL ECG UNCONFIRMED REPORT Electronically signed by : Jovanni Carpio MD 03/01/2023 10:38:01
[2023-02-28 22:57] LABS: ABG Base Excess 4.5 mmol/L (-2.4-2.3); ABG HCO3 29.7 mmhg (22.0-26.0); ABG Oxygen Saturation 98 % (90-100); ABG PH 7.37 mmol/L (7.35-7.45); ABG PO2 101.6 mmhg (80-100); ABG TCO2 31.3 mmhg (23-27)
[2023-02-28 22:58] LABS: Allen's Test Acceptable; Source Right Radial
[2023-02-28 23:00] VITALS: BP 145/77; PULSE 113; O2SAT 99
[2023-02-28 23:01] LABS: ABG PCO2 52.5 mmhg (35.0-45.0)
[2023-02-28 23:02] LABS: Basophils % 0.3 % (0.1-2.0); Eosinophils # 0.1 K/mm3 (0.0-0.4); Eosinophils % 0.7 % (0.1-12.0); Hematocrit 41.6 % (37.0-47.0); Hemoglobin 13.3 g/dL (12.2-16.2); Lymphocytes # 1.8 K/mm3 (0.7-4.5); Lymphocytes % 16.3 % (10-50); Mean Corpuscular HGB Conc 31.9 g/dL (31.8-35.4); Mean Corpuscular Hemoglobin 29.7 pg (27.0-31.2); Mean Corpuscular Volume 93.1 fl (81-99); Mean Platelet Volume 8.5 fl (7.4-10.4); Monocytes # 0.8 K/mm3 (0.1-1.0); Monocytes % 7.2 % (1.7-9.3); Neutrophils # 8.5 K/mm3 (1.8-7.8); Neutrophils % 75.5 % (37.0-80.0); Platelet Count 260 K/mm3 (142-424); Red Blood Count 4.47 M/mm3 (4.20-5.40); Red Cell Distribution Width 13.7 % (11.5-17.5); White Blood Count 11.2 K/mm3 (4.8-10.8)
[2023-02-28 23:02] LABS: Coronavirus 19, PCR Not Detected (NotDetected); Influenza A, PCR Not Detected (NotDetected); Influenza B, PCR Not Detected (NotDetected)
[2023-02-28 23:14] LABS: Alanine Aminotransferase 20 U/L (12-78); Albumin Level 4.3 g/dl (3.5-5.0); Albumin/Globulin Ratio 1.2 (1.1-1.8); Alkaline Phosphatase 93 U/L (38-126); Aspartate Amino Transferase 27 U/L (14-36); Bilirubin,Total 0.6 mg/dl (0.2-1.3); Blood Urea Nitrogen 15 mg/dl (7-17); Calcium 9.3 mg/dl (8.4-10.2); Carbon Dioxide 33 mmol/L (22.0-30.0); Chloride 93 mmol/L (98-107); Creatinine Clearance Estimated 62 mL/min (50-200); Estimated Glomerular Filt Rate 97 ml/min (>60); GFR (African American) 117 ML/MIN (>60); Globulin 3.5 g/dL (1.3-3.2); Glucose 188 mg/dl (74-100); Sodium 137 mmol/L (136-145); Total Protein,Serum 7.8 g/dl (6.3-8.2)
[2023-02-28 23:15] LABS: Lactic Acid 1.5 mmol/L (0.7-2.1)
[2023-02-28 23:19] LABS: C-Reactive Protein 218.3 mg/L (0-4)
[2023-02-28 23:28] LABS: NT Pro Brain Natriuretic Pep. 102 pg/mL (0-450)
[2023-02-28 23:30] VITALS: BP 164/80; PULSE 112; RESP 20; O2SAT 96
--- NOTE | 2023-02-28 23:30 | HMH.EDSOB ---
Discharge Plan Disposition Patient Disposition: Admitted Chief Complaint: Shortness of Breath/Dyspnea Clinical Impressions Clinical Impression: Acute exacerbation of chronic obstructive airways disease, Type 2 diabetes mellitus, Hypothyroid, Obesity (BMI 30.0-34.9), Community acquired pneumonia, Severe sepsis with acute organ dysfunction Discharge ED Provider: Faviola (ED),Gareth Markham Resp/SOB HPI General Chief Complaint: Shortness of Breath/Dyspnea Stated Complaint: SOA, chest congestion Time Seen by Provider: 02/28/23 22:40 Mode of Arrival: Wheelchair Source of Information: Patient and Medical Record Limitations: No Limitations Description of Symptoms (Recalled from ER Triage Doc. by RN): pt to the ED with increasing SOB since friday. pt denies any chets pain, recent illnes or fever. pt does report a history of COPD and wears 2L oxygen NC at home at all times. on assessment pt is 83% sat on her 2L oxygen History of Present Illness progressive illness since friday with hx of copd and o2 required - pt on abx but has prod cough MD Complaint: shortness of breath and cough Onset (ago): day(s) Severity: moderate Consistency/Duration: constant Relieving factors: oxygen Known history of: COPD Associated symptoms: denies other symptoms Related Data Home oxygen amount: 2 liters Home Medications Medication Instructions Recorded Confirmed blood sugar diagnostic (True #10 ea 03/21/22 02/04/23 Metrix Glucose Test Strip) lancets 33 gauge (TRUEplus Lancets) #100 ea 03/21/22 02/04/23 metoprolol succinate 25 mg 25 mg PO DAILY 03/21/22 02/04/23 tablet,extended release 24 hr Previous Rx's Medication Instructions Recorded ipratropium 0.5 mg-albuterol 3 mg 3 ml inhalation Q6H PRN shortness 11/07/22 (2.5 mg base)/3 mL nebulization of breath 90 days #180 mL soln budesonide-formoterol HFA 160 See Rx Instructions .Route 01/22/23 mcg-4.5 mcg/actuation aerosol .COMPLEX #2 ea inhaler (Symbicort) dapagliflozin propanediol 10 mg See Rx Instructions .Route 01/22/23 tablet (Farxiga) .COMPLEX #90 tabs levothyroxine 88 mcg tablet See Rx Instructions .Route 01/22/23 .COMPLEX #90 tabs lisinopril 10 See Rx Instructions .Route 01/22/23 mg-hydrochlorothiazide 12.5 mg .COMPLEX #90 tabs tablet metformin 500 mg tablet See Rx Instructions .Route 01/22/23 .COMPLEX #90 tabs azithromycin 250 mg tablet See Rx Instructions PO .COMPLEX #6 02/26/23 (Zithromax Z-Yoan) tabs Allergies Allergy/AdvReac Type Severity Reaction Status Date / Time [id number] Reductase AdvReac myalgias Verified 02/04/23 14:19 Inhibitor PFSH PFS Disclaimer: The information contained in this section may have been updated after the patient was seen, as this information can be updated by other users. Medical History COPD exacerbation Depression Hypothyroid Obesity (BMI 30.0-34.9) REAGAN (obstructive sleep apnea) Sinusitis Type 2 diabetes mellitus Surgical History H/O lithotripsy Family History Father Heart attack Hypertension Sister Heart attack Brother Hypertension Social History Smoking Status: Never smoker alcohol intake: never substance use type: denies use current occupational status: retired Travel in the last 8 weeks: None household members: none housing: house current occupational exposures/hazards: No caffeine: Yes ROS Obtained: Yes All systems reviewed & no additional complaints except as documented Physical Exam General General appearance: alert Head Head exam: normocephalic Eye Eye exam: Present PERRL and EOMI ENT ENT exam: Absent mucous membranes moist Neck Neck exam: Present trachea midline Respiratory Respiratory exam: Present wheezes and prolonged expiratory phas
[2023-02-28 23:31] LABS: Troponin I < 0.01 ng/ml (0.00-0.034)
[2023-02-28 23:33] LABS: Procalcitonin 0.081 ng/mL (0.0-2.0)
--- NOTE | 2023-02-28 23:33 | PC.NURSE ---
speaking with hospitalist for admission at this time
--- NOTE | 2023-02-28 23:35 | PC.NURSE ---
called house to notify of admission
--- NOTE | 2023-02-28 23:36 | PC.NURSE ---
in room talking with patient at this time.
[2023-02-28 23:38] LABS: Erythrocyte Sedimentation Rate 32 mm/hr (0-30)
--- NOTE | 2023-02-28 23:51 | PC.NURSE ---
report called to ROCK Manning
--- NOTE | 2023-02-28 23:54 | EXP.HP ---
History of Present Illness *Admission Date: 02/28/23 *Reason for visit:: SOB *History of present illness: pt to the ED with increasing SOB since friday. pt denies any chets pain, recent illnes or fever. pt does report a history of COPD and wears 2L oxygen NC at home at all times. on assessment pt is 83% sat on her 2L oxygen PFSH PFS Disclaimer: The information contained in this section may have been updated after the patient was seen, as this information can be updated by other users. Medical History COPD exacerbation Depression Hypothyroid Obesity (BMI 30.0-34.9) REAGAN (obstructive sleep apnea) Sinusitis Type 2 diabetes mellitus Surgical History H/O lithotripsy Family History Father Heart attack Hypertension Sister Heart attack Brother Hypertension Social History Smoking Status: Never smoker alcohol intake: never substance use type: denies use current occupational status: retired Travel in the last 8 weeks: None household members: none housing: house current occupational exposures/hazards: No caffeine: Yes Review of Systems Review of Systems Review of systems:: pertinent systems reviewed and negative unless documented below *Cardiovascular Cardiovascular: Reports dyspnea *Respiratory Respiratory: Reports dyspnea Meds Home Medications and Allergies Home Medications Medication Instructions Recorded Confirmed Type blood sugar diagnostic (True #10 ea 03/21/22 02/04/23 History Metrix Glucose Test Strip) lancets 33 gauge (TRUEplus Lancets) #100 ea 03/21/22 02/04/23 History metoprolol succinate 25 mg 25 mg PO DAILY 03/21/22 02/04/23 History tablet,extended release 24 hr ipratropium 0.5 mg-albuterol 3 mg 3 ml inhalation Q6H PRN shortness 11/07/22 02/04/23 Rx (2.5 mg base)/3 mL nebulization of breath 90 days #180 mL soln budesonide-formoterol HFA 160 See Rx Instructions .Route 01/22/23 02/04/23 Rx mcg-4.5 mcg/actuation aerosol .COMPLEX #2 ea inhaler (Symbicort) dapagliflozin propanediol 10 mg See Rx Instructions .Route 01/22/23 02/04/23 Rx tablet (Farxiga) .COMPLEX #90 tabs levothyroxine 88 mcg tablet See Rx Instructions .Route 01/22/23 02/04/23 Rx .COMPLEX #90 tabs lisinopril 10 See Rx Instructions .Route 01/22/23 02/04/23 Rx mg-hydrochlorothiazide 12.5 mg .COMPLEX #90 tabs tablet metformin 500 mg tablet See Rx Instructions .Route 01/22/23 02/04/23 Rx .COMPLEX #90 tabs azithromycin 250 mg tablet See Rx Instructions PO .COMPLEX #6 02/26/23 Rx (Zithromax Z-Yoan) tabs New Prescriptions to Start Prescriptions: Allergies Allergy/AdvReac Type Severity Reaction Status Date / Time [id number] Reductase AdvReac myalgias Verified 02/04/23 14:19 Inhibitor Exam Data for Last 24 hours Vital signs and Labs for Last 24 Hours: Temp Pulse Resp BP Pulse Ox 98.3 F 112 H 20 164/80 H 96 02/28/23 22:32 02/28/23 23:30 02/28/23 23:30 02/28/23 23:30 02/28/23 23:30 Laboratory Results - last 24 hr 02/28/23 22:41: Specimen Source Right radial, O2 % 5lpm n/c, ABG pH 7.37, ABG pCO2 52.5 H, ABG pO2 101.6 H, ABG HCO3 29.7 H, ABG Total CO2 31.3 H, ABG O2 Saturation 98, ABG Base Excess 4.5 H, Silas Test Acceptable 02/28/23 22:49: WBC 11.2 H, RBC 4.47, Hgb 13.3, Hct 41.6, MCV 93.1, MCH 29.7, MCHC 31.9, RDW 13.7, Plt Count 260, MPV 8.5, Neut % (Auto) 75.5, Lymph % (Auto) 16.3, [place] % (Auto) 7.2, Eos % (Auto) 0.7, Baso % (Auto) 0.3, Neut # (Auto) 8.5 H, Lymph # (Auto) 1.8, [place] # (Auto) 0.8, Eos # (Auto) 0.1, Baso # (Auto) 0.0, ESR 32 H 02/28/23 22:49: Sodium 137, Potassium 4.0, Chloride 93 L, Carbon Dioxide 33 H, Anion Gap 15.0, BUN 15, Creatinine 0.60, Estimated Creat Clear 62, Estimated GFR 97, Est GFR ( Amer) 117, Glu
[2023-03-01] VITALS (20 sets, daily range): BP systolic 124–153; BP diastolic 49–91; PULSE 78–111; RESP 18–20; TEMP 36.5–37.2; O2SAT 93–97; BMI 32.3
--- NOTE | 2023-03-01 00:03 | PC.NURSE ---
Hospitalist in room talking with patient at this time.
--- NOTE | 2023-03-01 00:07 | PC.NURSE ---
Dr. Yoel Mota s/w pt
--- NOTE | 2023-03-01 00:34 | PC.NURSE ---
Pt arrived to the floor via stretcher @ 2020
--- NOTE | 2023-03-01 01:40 | PC.NURSE ---
Pt notfied of need for sputum sample. Pt unable to produce at this time. Instructions given and specimen cp left at bedside. Pt also educated and encouraged to use incentive spirometer q1h wa. pt verbalized understanding.
[2023-03-01 02:22] LABS: Troponin I < 0.01 ng/ml (0.00-0.034)
[2023-03-01 05:04] LABS: POC Glucose,Bedside 270 (70-110)
[2023-03-01 05:05] LABS: Basophils % 0.2 % (0.1-2.0); Eosinophils % 0.2 % (0.1-12.0); Hematocrit 41.2 % (37.0-47.0); Hemoglobin 12.7 g/dL (12.2-16.2); Lymphocytes # 0.8 K/mm3 (0.7-4.5); Lymphocytes % 9.3 % (10-50); Mean Corpuscular Hemoglobin 29.2 pg (27.0-31.2); Mean Corpuscular Volume 94.5 fl (81-99); Mean Platelet Volume 8.7 fl (7.4-10.4); Monocytes # 0.2 K/mm3 (0.1-1.0); Monocytes % 2.6 % (1.7-9.3); Neutrophils # 7.9 K/mm3 (1.8-7.8); Neutrophils % 87.6 % (37.0-80.0); Platelet Count 254 K/mm3 (142-424); Red Blood Count 4.36 M/mm3 (4.20-5.40); Red Cell Distribution Width 13.9 % (11.5-17.5)
[2023-03-01 05:07] LABS: MANUAL DIFFERENTIAL MANUAL DIFFERENTIAL (MANUAL DIFF)
[2023-03-01 05:18] LABS: Chloride 93 mmol/L (98-107); Potassium 4.5 mmoL/L (3.5-5.1); Sodium 138 mmol/L (136-145)
[2023-03-01 05:20] LABS: Blood Urea Nitrogen 15 mg/dl (7-17); Creatinine Clearance Estimated 61 mL/min (50-200); Estimated Glomerular Filt Rate 81 ml/min (>60); GFR (African American) 98 ML/MIN (>60)
[2023-03-01 05:21] LABS: Alanine Aminotransferase 27 U/L (12-78); Albumin Level 4.1 g/dl (3.5-5.0); Albumin/Globulin Ratio 1.3 (1.1-1.8); Alkaline Phosphatase 81 U/L (38-126); Anion Gap 16.5 mEq/L (5-15); Aspartate Amino Transferase 29 U/L (14-36); Bilirubin,Total 0.3 mg/dl (0.2-1.3); Carbon Dioxide 33 mmol/L (22.0-30.0); Globulin 3.2 g/dL (1.3-3.2); Phosphorous 4.3 mg/dl (2.5-4.5); Total Protein,Serum 7.3 g/dl (6.3-8.2)
[2023-03-01 05:22] LABS: Calcium 9.4 mg/dl (8.4-10.2); Glucose 286 mg/dl (74-100); Magnesium 2.2 mg/dl (1.6-2.3)
[2023-03-01 05:23] LABS: Hemoglobin A1C 8.6 % (4.0-6.0)
[2023-03-01 05:30] LABS: Lymphocytes % 15 % (10-50); Neutrophils % 85 % (42-76); Platelet Estimate Normal; RBC Morphology Normal; Total Cells Counted 100
[2023-03-01 05:37] LABS: Troponin I < 0.01 ng/ml (0.00-0.034)
--- NOTE | 2023-03-01 06:31 | PC.NURSE ---
Pt has not voiced any complaints to staff t/o night. Pt currently on 3 L nc to achieve o2 >90%. Pt is ambulating to BR with standby assist. Pt has been encouraged to use IS while awake. Pt has been unable to produce sputum sample thus far. Call light within reach.
--- NOTE | 2023-03-01 08:26 | HMH.PHAINT1 ---
Pharmacy Intervention Comments: MEDICATION RECONCILIATION COMPLETED ON PATIENT USING EXTERNAL FILL HISTORY FROM PHARMACY. -SARAH DOMINGUEZ, BRANDYD
--- NOTE | 2023-03-01 09:47 | EXP.PN ---
Subjective *Date: 03/01/23 *Time: 10:59 Interval history: No acute events overnight. She continues to feel very weak and has a productive cough with brown sputum. She feels a little better compared to yesterday. Slightly less dyspnea Exam Data for Last 24 hours Vital signs and Labs for Last 24 Hours: Temp Pulse Resp BP Pulse Ox 97.9 F 100 H 18 124/60 94 L 03/01/23 07:57 03/01/23 07:57 03/01/23 07:57 03/01/23 07:57 03/01/23 07:57 Laboratory Results - last 24 hr 02/28/23 22:41: Specimen Source Right radial, O2 % 5lpm n/c, ABG pH 7.37, ABG pCO2 52.5 H, ABG pO2 101.6 H, ABG HCO3 29.7 H, ABG Total CO2 31.3 H, ABG O2 Saturation 98, ABG Base Excess 4.5 H, Silas Test Acceptable 02/28/23 22:49: WBC 11.2 H, RBC 4.47, Hgb 13.3, Hct 41.6, MCV 93.1, MCH 29.7, MCHC 31.9, RDW 13.7, Plt Count 260, MPV 8.5, Neut % (Auto) 75.5, Lymph % (Auto) 16.3, [place] % (Auto) 7.2, Eos % (Auto) 0.7, Baso % (Auto) 0.3, Neut # (Auto) 8.5 H, Lymph # (Auto) 1.8, [place] # (Auto) 0.8, Eos # (Auto) 0.1, Baso # (Auto) 0.0, ESR 32 H 02/28/23 22:49: Sodium 137, Potassium 4.0, Chloride 93 L, Carbon Dioxide 33 H, Anion Gap 15.0, BUN 15, Creatinine 0.60, Estimated Creat Clear 62, Estimated GFR 97, Est GFR ( Amer) 117, Glucose 188 H, Calcium 9.3, Total Bilirubin 0.6, AST 27, ALT 20, Alkaline Phosphatase 93, Troponin I < 0.01, C-Reactive Protein 218.3 H, NT-Pro-B Natriuret Pep 102, Total Protein 7.8, Albumin 4.3, Globulin 3.5 H, Albumin/Globulin Ratio 1.2, Procalcitonin 0.081 02/28/23 22:49: Lactate 1.5 02/28/23 22:58: SARS-CoV-2 (PCR) Not detected, Influenza A Untype (PCR) Not detected, Influenza Type B (PCR) Not detected 03/01/23 01:45: Troponin I < 0.01 03/01/23 04:56: POC Glucose 270 H 03/01/23 05:00: Troponin I < 0.01 03/01/23 05:00: WBC 9.0, RBC 4.36, Hgb 12.7, Hct 41.2, MCV 94.5, MCH 29.2, MCHC 31.0 L, RDW 13.9, Plt Count 254, MPV 8.7, Neut % (Auto) 87.6 H, Lymph % (Auto) 9.3 L, [place] % (Auto) 2.6, Eos % (Auto) 0.2, Baso % (Auto) 0.2, Neut # (Auto) 7.9 H, Lymph # (Auto) 0.8, [place] # (Auto) 0.2, Eos # (Auto) 0.0, Baso # (Auto) 0.0, Total Counted 100, Neutrophils % (Manual) 85 H, Lymphocytes % (Manual) 15, Platelet Estimate Normal, RBC Morphology Normal 03/01/23 05:00: Sodium 138, Potassium 4.5, Chloride 93 L, Carbon Dioxide 33 H, Anion Gap 16.5 H, BUN 15, Creatinine 0.70, Estimated Creat Clear 61, Estimated GFR 81, Est GFR ( Amer) 98, Glucose 286 H D, Calcium 9.4, Phosphorus 4.3, Magnesium 2.2, Total Bilirubin 0.3, AST 29, ALT 27 D, Alkaline Phosphatase 81, Total Protein 7.3, Albumin 4.1, Globulin 3.2, Albumin/Globulin Ratio 1.3 03/01/23 05:00: Hemoglobin A1c 8.6 H I & O for Last 24 hours: Intake & Output 02/26/23 02/27/23 02/28/23 03/01/23 23:59 23:59 23:59 23:59 Intake Total 483 / 483 Output Total 700 / 700 Balance -217 / -217 Weight 83.007 kg 82.637 kg Microbiology Reports for the Last 24 Hours: Microbiology 03/01/23 06:29 Sputum - Expectorated Sputum Gram Stain - Final Constitutional Constitutional: no acute distress *Routine HEENT Exam Head: Present normocephalic Eye: Present EOMI and PERRL ENT: Present mucous membranes moist *Routine Neck Exam Neck: Present supple; Absent lymphadenopathy *Routine Respiratory Exam Respiratory: Present accessory muscle use, decreased breath sounds, prolonged expiratory phase and diminished air movement *Routine Cardiovascular Exam Cardiovascular: Present RRR *Routine Abdominal Exam Abdominal: Present soft and normoactive bowel sounds; Absent tenderness *Routine Extremities Exam Extremities: Absent cyanosis, clubbing or edema *Routine Skin Exam Skin: Present warm; Absent rash *Routine Neurological Exam Neurological: Present alert and oriented X3 Assessment and Plan *Assessment and plan (1) Obesity (BMI 30.0-34.9): Status: Acute Category: Medical Code(s): E66.9 - Obesity, unspecified (2) REAGAN (obstructive sleep apnea): Status: Chronic Category: Medical
[2023-03-01 11:42] LABS: POC Glucose,Bedside 287 (70-110)
--- NOTE | 2023-03-01 18:28 | PC.NURSE ---
o2 sats was dropping in the low 80s in the am when pt would get ambulate to the br. pts has done better t/o shft, sats 88-90s now when pt gets up. pt stated she wears 2l nc at home but will turn o2 up to 2.5-3l when cooking/cleaning/ambulating. pt rested well for about 3 hrs today. cb within reach no concerns at this time.
[2023-03-01 18:46] LABS: POC Glucose,Bedside 283 (70-110)
[2023-03-01 21:06] LABS: POC Glucose,Bedside 221 (70-110)
[2023-03-02] VITALS (15 sets, daily range): BP systolic 116–131; BP diastolic 68–91; PULSE 70–106; RESP 18–22; TEMP 36.5–36.9; O2SAT 92–98; BMI 32.4
[2023-03-02 06:38] LABS: POC Glucose,Bedside 280 (70-110)
--- NOTE | 2023-03-02 06:42 | PC.NURSE ---
PT HAS NOT SLEPT MUCH THIS SHIFT. PT STATES THAT SHE GETS SHORT OF BREATH AT TIMES AND WITH EXERTION. FSBS CONTINUE TO BE ELEVATED IN THE UPPER 200'S. VSS. REMAINS ON 3L NASAL CANNULA AND IS TOLERATING WELL. AMBULATING INDEPENDENTLY. CALL POWER WITHIN REACH.
--- NOTE | 2023-03-02 07:27 | PC.NURSE ---
courtesy tech camille: pt is sitting on the side of bed eating breakfast. no requests voiced at this time
--- NOTE | 2023-03-02 07:55 | EXP.PN ---
Subjective *Date: 03/02/23 *Time: 09:21 Interval history: She feels better today. Continues to cough. Her sputum is yellow-green. She has less dyspnea. She complains that one of her breathing treatments make her feel really jittery and anxious. Exam Data for Last 24 hours Vital signs and Labs for Last 24 Hours: Temp Pulse Resp BP Pulse Ox FiO2 97.7 F 100 H 19 126/91 H 96 32 03/02/23 07:18 03/02/23 07:18 03/02/23 07:18 03/02/23 07:18 03/02/23 07:18 03/01/23 18:34 Laboratory Results - last 24 hr 03/01/23 11:26: POC Glucose 287 H 03/01/23 16:29: POC Glucose 283 H 03/01/23 20:58: POC Glucose 221 H 03/02/23 06:31: POC Glucose 280 H I & O for Last 24 hours: Intake & Output 02/27/23 02/28/23 03/01/23 03/02/23 23:59 23:59 23:59 23:59 Intake Total 963 / 963 240 / 240 Output Total 900 / 900 0 / 0 Balance 63 / 63 240 / 240 Weight 83.007 kg 82.637 kg 83.143 kg Microbiology Reports for the Last 24 Hours: Microbiology 02/28/23 22:49 Blood Blood Culture - Preliminary 03/01/23 06:29 Sputum - Expectorated Sputum Gram Stain - Final Constitutional Constitutional: no acute distress *Routine HEENT Exam Head: Present normocephalic Eye: Present EOMI and PERRL ENT: Present mucous membranes moist *Routine Neck Exam Neck: Present supple; Absent lymphadenopathy *Routine Respiratory Exam Respiratory: Present accessory muscle use, prolonged expiratory phase and diminished air movement *Routine Cardiovascular Exam Cardiovascular: Present RRR *Routine Abdominal Exam Abdominal: Present soft and normoactive bowel sounds; Absent tenderness *Routine Extremities Exam Extremities: Absent cyanosis, clubbing or edema *Routine Skin Exam Skin: Present warm; Absent rash *Routine Neurological Exam Neurological: Present alert and oriented X3 Assessment and Plan *Assessment and plan (1) COPD exacerbation: Status: Acute Category: Medical Code(s): J44.1 - Chronic obstructive pulmonary disease with (acute) exacerbation (2) Obesity (BMI 30.0-34.9): Status: Acute Category: Medical Code(s): E66.9 - Obesity, unspecified (3) REAGAN (obstructive sleep apnea): Status: Chronic Category: Medical Code(s): G47.33 - Obstructive sleep apnea (adult) (pediatric) Truman Olivarez is a 77 year old female with a past medical history of COPD on 2-3L NC continuously at baseline, type 2 diabetes mellitus, REAGAN, hypothyroidism, hypertension and hyperlipidemia. She presented with a few days of shortness of breath and was admitted on 02/28 with COPD exacerbation. #acute respiratory failure secondary to COPD exacerbation #hyperglycemia #type 2 diabetes mellitus #hypothyroidism Continue supplemental oxygen as needed. She is currently on 3L NC which is what she uses at baseline. Her blood sugar levels are elevated, contributed by the steroids we have been administering. Continue high dose SSI. Will start Lantus 20u qd this morning. Continue Solumedrol IV 40mg BID Continue Levofloxacin 750mg PO daily (03/01- present). I stopped Rocephin/Azithromycin yesterday after speaking with Pulmonology. Continue Pulmicort Stop Duonebs q6h because it is causing the patient to feel jittery/anxious. Start levalbuterol q6h and ipratroprium q6h. Continue mucinex Follow blood and sputum cultures I will order a CBC and BMP for tomorrow morning. The patient has never established care with Pulmonology. Consult Pulmonology for the management of her COPD. Regular diet DVT ppx: lovenox Full code Anticipate discharge to home in 1-2 days
[2023-03-02 14:37] LABS: POC Glucose,Bedside 180 (70-110)
--- NOTE | 2023-03-02 18:46 | PC.NURSE ---
pt has been tachy t/o shift. pt stating one of the breathing txs this morning made pt very jittery adn anxious, notified md. pt has slept most of the day, stating she couldnt sleep last night. 3l nc, tolerating well. yesica exp wheezes her t/o lungs. no edema noted. family has been at bs all day. no other questions or concerns at this time.
[2023-03-02 22:27] LABS: POC Glucose,Bedside 218 (70-110)
[2023-03-03] VITALS (7 sets, daily range): BP systolic 123–151; BP diastolic 59–76; PULSE 77–107; RESP 16–20; TEMP 36.5–36.7; O2SAT 93–96; BMI 32.6
[2023-03-03 01:56] LABS: POC Glucose,Bedside 257 (70-110)
--- NOTE | 2023-03-03 04:17 | PC.NURSE ---
NO ACUTE CHANGES THIS SHIFT. REMAINS ON 3L NASAL CANNULA AND IS TOLERATING WELL. PT STATES THAT SHE GOT VERY SHORT OF BREATH AFTER BREATHING TREATMENT LAST NIGHT BUT AFTER ABOUT 30 MINUTES SHE STATED SHE FELT BETTER. VSS. SHE HAS SLEPT INTERMITTENTLY. CALL POWER WITHIN REACH.
[2023-03-03 06:15] LABS: POC Glucose,Bedside 288 (70-110)
[2023-03-03 06:33] LABS: Basophils % 0.2 % (0.1-2.0); Eosinophils % 0.1 % (0.1-12.0); Hematocrit 41.6 % (37.0-47.0); Hemoglobin 12.6 g/dL (12.2-16.2); Lymphocytes # 1.3 K/mm3 (0.7-4.5); Lymphocytes % 11.9 % (10-50); Mean Corpuscular HGB Conc 30.2 g/dL (31.8-35.4); Mean Corpuscular Hemoglobin 28.5 pg (27.0-31.2); Mean Corpuscular Volume 94.2 fl (81-99); Mean Platelet Volume 8.4 fl (7.4-10.4); Monocytes # 0.5 K/mm3 (0.1-1.0); Neutrophils # 8.8 K/mm3 (1.8-7.8); Neutrophils % 82.8 % (37.0-80.0); Platelet Count 315 K/mm3 (142-424); Red Blood Count 4.42 M/mm3 (4.20-5.40); Red Cell Distribution Width 13.5 % (11.5-17.5); White Blood Count 10.6 K/mm3 (4.8-10.8)
[2023-03-03 06:40] LABS: Chloride 94 mmol/L (98-107); Potassium 4.8 mmoL/L (3.5-5.1); Sodium 137 mmol/L (136-145)
[2023-03-03 06:43] LABS: Anion Gap 13.8 mEq/L (5-15); Blood Urea Nitrogen 26 mg/dl (7-17); Calcium 9.2 mg/dl (8.4-10.2); Carbon Dioxide 34 mmol/L (22.0-30.0); Creatinine Clearance Estimated 62 mL/min (50-200); Estimated Glomerular Filt Rate 70 ml/min (>60); GFR (African American) 84 ML/MIN (>60); Glucose 289 mg/dl (74-100)
[2023-03-03 09:39] LABS: POC Glucose,Bedside 311 (70-110)
--- NOTE | 2023-03-03 09:41 | EXP.PULM.CON ---
History of Present Illness History of present illness: Ms. Olivarez is 77-year-old female history of COPD, greater than [id number] smoking history, last smoked around 16 years ago multiple recent EXacerbations was recently managed as an outpatient basis presented to the hospital again with worsening respiratory distress and pulmonary was called for further evaluation. [facility] Disclaimer: The information contained in this section may have been updated after the patient was seen, as this information can be updated by other users. Medical History (Updated 03/03/23 @ 10:42 by Yolanda Morillo MD) Acute and chronic respiratory failure with hypoxia COPD exacerbation COPD exacerbation Depression Hypothyroid Obesity (BMI 30.0-34.9) REAGAN (obstructive sleep apnea) Pneumonia Sinusitis Type 2 diabetes mellitus Surgical History H/O lithotripsy Family History Father Heart attack Hypertension Sister Heart attack Brother Hypertension Social History (Updated 03/01/23 @ 10:03 by Veronica Rosa RN) Smoking Status: Former smoker alcohol intake: never substance use type: denies use current occupational status: retired Travel in the last 8 weeks: None household members: none housing: house current occupational exposures/hazards: No caffeine: Yes Review of Systems Constitutional Constitutional: Reports anorexia, Reports body ache(s) and Reports fatigue Eyes Eyes: Denies eye discharge, Denies dry eyes, Denies irritation and Denies itchy eyes ENT Ears, Nose, Mouth, and Throat: Denies epistaxis, Denies facial pain, Denies lip swelling and Denies throat swelling *Cardiovascular Cardiovascular: Reports dyspnea, Reports dyspnea on exertion, Reports leg edema and Reports orthopnea *Respiratory Respiratory: Reports chest congestion, Reports cough, Reports dyspnea, Reports dyspnea on exertion, Reports excessive phlegm production and Reports wheezing *Gastrointestinal Gastrointestinal: Denies abdominal pain, Denies belching and Denies cramping *Musculoskeletal Musculoskeletal: Reports back pain, Reports myalgias and Reports other (No small joint swelling or Pain) Psychiatric Psychiatric: Denies homicidal ideation and Denies suicidal ideation Endocrine Endocrine: Reports fatigue and Denies heat intolerance Hematologic/Lymphatic Hematologic/Lymphatic: Denies easy bleeding and Denies lymphadenopathy Allergic/Immunologic Allergic/Immunologic: Denies itchy eyes, Denies lip swelling, Denies throat swelling and Reports wheezing Pulmonology Exam Inpatient Vital signs and Labs for Last 24 Hours: Temp Pulse Resp BP Pulse Ox FiO2 97.7 F 107 H 20 132/59 L 96 32 03/03/23 08:00 03/03/23 08:00 03/03/23 08:00 03/03/23 08:00 03/03/23 08:00 03/02/23 20:33 Laboratory Results - last 24 hr 03/02/23 11:18: POC Glucose 180 H 03/02/23 16:22: POC Glucose 257 H 03/02/23 22:15: POC Glucose 218 H 03/03/23 05:55: WBC 10.6, RBC 4.42, Hgb 12.6, Hct 41.6, MCV 94.2, MCH 28.5, MCHC 30.2 L, RDW 13.5, Plt Count 315, MPV 8.4, Neut % (Auto) 82.8 H, Lymph % (Auto) 11.9, [place] % (Auto) 5.0, Eos % (Auto) 0.1, Baso % (Auto) 0.2, Neut # (Auto) 8.8 H, Lymph # (Auto) 1.3, [place] # (Auto) 0.5, Eos # (Auto) 0.0, Baso # (Auto) 0.0 03/03/23 05:55: Sodium 137, Potassium 4.8, Chloride 94 L, Carbon Dioxide 34 H, Anion Gap 13.8, BUN 26 H D, Creatinine 0.80, Estimated Creat Clear 62, Estimated GFR 70, Est GFR ( Amer) 84, Glucose 289 H, Calcium 9.2 03/03/23 06:07: POC Glucose 288 H 03/03/23 09:28: POC Glucose 311 H* I & O for Labs for Last 24 Hours: Intake & Output 02/28/23 03/01/23 03/02/23 03/03/23 23:59 23:59 23:59 23:59 Intake Total 963 / 963 840 / 840 240 / 240 Output Total 900 / 900 0 / 0 0 / 0 Balance 63 / 63 840 / 840 240 / 240 Weight 183 lb 182 lb 2.934 oz 183 lb 4.783 oz 184 lb 6.4 oz Microbiology Reports for the Last
--- NOTE | 2023-03-03 10:01 | PC.NURSE ---
pt ambulated to bathroom while on 3L NC. o2 dropped to 84%, HR increased to 115 pt verbalized soa. increased to 4L.
[2023-03-03 11:58] LABS: POC Glucose,Bedside 256 (70-110)
--- NOTE | 2023-03-03 12:56 | EXP.DC.SUM ---
General Admission date:: 03/01/23 Discharge date: 03/03/23 HPI HPI HPI: pt to the ED with increasing SOB since friday. pt denies any chets pain, recent illnes or fever. pt does report a history of COPD and wears 2L oxygen NC at home at all times. on assessment pt is 83% sat on her 2L oxygen Hospital Course Hospital Course Hospital Course: Jordyn Olivarez is a 77 year old female with a past medical history of COPD on 2-3L NC continuously at baseline, type 2 diabetes mellitus, REAGAN, hypothyroidism, hypertension and hyperlipidemia. She presented with a few days of shortness of breath and was admitted on 02/28 with COPD exacerbation. Stable oxygen requirement. Responding to current treatment. Stable for discharge home to continue to convalesce. Problems addressed as follows: #acute respiratory failure secondary to COPD exacerbation #hyperglycemia #type 2 diabetes mellitus #hypothyroidism Patient initiated on supplemental oxygen, goal saturation greater than 90%. Currently requiring 3 L nasal cannula which is her baseline at home. Improved shortness of breath. Recovers quickly after resting after exertion. Patient transitioned to levofloxacin for antibiotic coverage. Plan for 750 mg daily for a total of 5 days. Continue steroids with prednisone 40 mg daily to complete total of 5 days. Transition to Xopenex and ipratropium for nebulizer. Patient can be discharged home on Breztri inhaler. Has a nebulizer at home. Encouraged to continue incentive spirometry. Resume home diabetes regimen. Required insulin during admission but anticipate improvement in blood sugar after steroids are completed. Plan for follow-up with pulmonology in the next 1 to 2 weeks Exam Data for Last 24 hours Vital signs and Labs for Last 24 Hours: Temp Pulse Resp BP Pulse Ox FiO2 98.1 F 104 H 18 151/75 H 96 32 03/03/23 12:00 03/03/23 12:00 03/03/23 12:00 03/03/23 12:00 03/03/23 12:00 03/02/23 20:33 Laboratory Results - last 24 hr 03/02/23 11:18: POC Glucose 180 H 03/02/23 16:22: POC Glucose 257 H 03/02/23 22:15: POC Glucose 218 H 03/03/23 05:55: WBC 10.6, RBC 4.42, Hgb 12.6, Hct 41.6, MCV 94.2, MCH 28.5, MCHC 30.2 L, RDW 13.5, Plt Count 315, MPV 8.4, Neut % (Auto) 82.8 H, Lymph % (Auto) 11.9, [place] % (Auto) 5.0, Eos % (Auto) 0.1, Baso % (Auto) 0.2, Neut # (Auto) 8.8 H, Lymph # (Auto) 1.3, [place] # (Auto) 0.5, Eos # (Auto) 0.0, Baso # (Auto) 0.0 03/03/23 05:55: Sodium 137, Potassium 4.8, Chloride 94 L, Carbon Dioxide 34 H, Anion Gap 13.8, BUN 26 H D, Creatinine 0.80, Estimated Creat Clear 62, Estimated GFR 70, Est GFR ( Amer) 84, Glucose 289 H, Calcium 9.2 03/03/23 06:07: POC Glucose 288 H 03/03/23 09:28: POC Glucose 311 H* 03/03/23 11:12: POC Glucose 256 H I & O for Last 24 hours: Intake & Output 02/28/23 03/01/23 03/02/23 03/03/23 23:59 23:59 23:59 23:59 Intake Total 963 / 963 840 / 840 240 / 240 Output Total 900 / 900 0 / 0 200 / 200 Balance 63 / 63 840 / 840 40 / 40 Weight 83.007 kg 82.637 kg 83.143 kg 83.642 kg Microbiology Reports for the Last 24 Hours: Microbiology 02/28/23 22:49 Blood Blood Culture - Preliminary 03/01/23 06:29 Sputum - Expectorated Sputum Gram Stain - Final 03/01/23 06:29 Sputum - Expectorated Sputum Sputum Culture - Preliminary 02/28/23 22:49 Blood Blood Culture - Preliminary NO GROWTH AFTER 48 HOURS Constitutional Constitutional: no acute distress and chronically ill appearing *Routine HEENT Exam Head: Present normocephalic Eye: Present EOMI and PERRL ENT: Present mucous membranes moist *Routine Neck Exam Neck: Present supple; Absent lymphadenopathy *Routine Respiratory Exam Respiratory: Present prolonged expiratory phase, wheezes and normal respiratory effort; Absent rhonchi or crackles *Routine Cardiovascular Exam Cardiovascular: Present RRR *Routine Abdominal Exam Abdominal: Present soft and normoactive bowel sounds; Absent tenderness *Routine
--- NOTE | 2023-03-03 15:00 | HMH.PHAINT1 ---
Pharmacy Intervention Comments: Discharge medication counseling completed. Patient was starting the following new meds: -ipratropium bromide and levalbuterol solutions: QID PRN in nebulizer for dyspnea. Told patient side effects could include jitteriness or increased heart rate, but these symptoms should go away shortly after using and to let her doctor know if they persist. -levofloxacin: 750 mg once daily, told of possible side effects of stomach upset and/or diarrhea, said taking with food can help to prevent this -prednisone: two 20 mg tabs once daily (40 mg total), said possible short term side effects could include mood changes or trouble sleeping. Said to take in the morning to reduce risk of insomnia. Patient was told to stop the following meds: -azithromycin: antibiotic that patient had started, told her not to continue taking if she still had some at home -Duoneb: replaced by ipratropium and levalbuterol solutions -Symbicort: patient was concerned about stopping this. Told her to use ipratropium and levalbuterol up to four times daily to control dyspnea. Said to speak to her provider if she was using both frequently but they were not controlling her symptoms. Ensured that new prescriptions were being sent to patient's preferred pharmacy ([facility]). Patient verbalized understanding and had no further questions.
--- NOTE | 2023-03-04 13:01 | CARE MANAGER ---
Contacted patient related to hospital discharge. She states she is doing well. She has all her medications except for one which the pharmacy ordered. She is aware of follow up appointments. Denies any questions or concerns. ROCK Reynolds
== END 2023-03-03 15:57 | disposition home or self-care (01) ==
LOC: ER 22:47 → 2ND 03-01 00:08
PROVIDERS: Internal Medicine; Admitting Provider Student in an Organized Health Care Education/Training Program; Emergency Provider Emergency Medicine; PCP Family Medicine; Visit Provider Student in an Organized Health Care Education/Training Program
DX: J18.9 Pneumonia, unspecified organism (principal); G47.33 Obstructive sleep apnea (adult) (pediatric); J44.1 Chronic obstructive pulmonary disease with (acute) exacerbation; J96.21 Acute and chronic respiratory failure with hypoxia; E11.9 Type 2 diabetes mellitus without complications; Z79.84 Long term (current) use of oral hypoglycemic drugs; I10 Essential (primary) hypertension; Z79.899 Other long term (current) drug therapy; E03.9 Hypothyroidism, unspecified; Z99.81 Dependence on supplemental oxygen; Z87.891 Personal history of nicotine dependence; R06.9 Unspecified abnormalities of breathing
CPT/HCPCS: G0378; 36415; 71045; 80048; 80053; 82803; 82962; 83036; 83605; 83735; 83880; 84100; 84145; 84484; 85007; 85025; 85651; 86140; 87040; 87070; 87186; 87205; 87636; 93005; 94640; 94760; 94761; 99285; C9803; J0456; J0696; U0003; U0005

== ENCOUNTER → 2023-06-27 08:36 | Outpatient (CLI) | payer MEDICARE, SELFPAY | PROVIDERS: PCP Nurse Practitioner Family; Visit Provider Nurse Practitioner Family | DX: R30.0 Dysuria (principal); R82.90 Unspecified abnormal findings in urine | CPT/HCPCS: 87086 ==

== ENCOUNTER 2024-02-22 00:47 | Observation (INO) | payer MEDICARE, SELFPAY ==
[2024-02-22] VITALS (11 sets, daily range): BP systolic 118–133; BP diastolic 64–70; PULSE 71–116; RESP 16–25; TEMP 36.5–36.9; O2SAT 93–98; BMI 28.3; BMI 32.0
--- NOTE | 2024-02-22 00:52 | ECG_ITS ---
APPROVED REPORT Exam: Resting ECG HR:110 bpm ECG Measurements Heart Rate 110 AXES AR 165 P 83 QRSd 109 QRS 92 QT 338 T 3 QTc 403 Conclusion SINUS TACHYCARDIA BORDERLINE RIGHT AXIS DEVIATION [QRS AXIS > 90] LOW QRS VOLTAGE IN PRECORDIAL LEADS [QRS DEFLECTION < 1.0 mV IN CHEST LEADS] ST DEVIATION AND MODERATE T-WAVE ABNORMALITY, CONSIDER INFERIOR ISCHEMIA [-0.1+ mV T-WAVE IN II/aVF] ABNORMAL ECG No significant changes noted from prior ECG Electronically signed by : ARJUN BELL, 02/22/2024 06:26:44
--- NOTE | 2024-02-22 00:57 | XR_ITS ---
PROCEDURE INFORMATION: Exam: XR Chest Exam date and time: 02/22/2024 1:03 AM Age: 78 years old Clinical indication: Pain; Chest pressure; Additional info: Chest pain TECHNIQUE: Imaging protocol: Radiologic exam of the chest. Views: 1 view. COMPARISON: CR XR CHEST PORTABLE 02/28/2023 11:03 PM FINDINGS: Lungs: No evidence of acute pulmonary disease or infiltrates Pleural spaces: No large effusion or pneumothorax. Heart/Mediastinum: Stable cardiac and mediastinal contours. Bones/joints: No evidence of acute osseous abnormalities within the visualized portions of the thoracic spine and ribs. Osseous structures appear appropriate for patient age. IMPRESSION: No dense parenchymal consolidation, pleural effusion, or pneumothorax.
--- NOTE | 2024-02-22 00:58 | PC.NURSE ---
respiratory notified of VBG order and blood submitted to the lab
[2024-02-22 01:01] LABS: Basophils # 0.1 K/mm3 (0-0.2); Basophils % 0.7 % (0.1-2.0); Eosinophils # 0.1 K/mm3 (0.0-0.4); Eosinophils % 0.3 % (0.1-12.0); Hematocrit 42.4 % (37.0-47.0); Hemoglobin 13.4 g/dL (12.2-16.2); Lymphocytes # 4.3 K/mm3 (0.7-4.5); Lymphocytes % 21.4 % (10-50); Mean Corpuscular HGB Conc 31.5 g/dL (31.8-35.4); Mean Corpuscular Hemoglobin 30.1 pg (27.0-31.2); Mean Corpuscular Volume 95.6 fl (81-99); Mean Platelet Volume 8.4 fl (7.4-10.4); Monocytes # 0.9 K/mm3 (0.1-1.0); Monocytes % 4.4 % (1.7-9.3); Neutrophils # 14.7 K/mm3 (1.8-7.8); Neutrophils % 73.2 % (37.0-80.0); Platelet Count 272 K/mm3 (142-424); Red Blood Count 4.44 M/mm3 (4.20-5.40); Red Cell Distribution Width 14.1 % (11.5-17.5); White Blood Count 20.1 K/mm3 (4.8-10.8)
--- NOTE | 2024-02-22 01:01 | PC.NURSE ---
Dr. geller at bedside
--- NOTE | 2024-02-22 01:02 | ED_ITS ---
Discharge Plan Disposition Patient Disposition: Admitted Condition: Good Prescriptions Prescriptions: No Action nitrofurantoin monohyd/m-cryst [Macrobid] 100 mg capsule 100 mg PO Q12H 7 Days Qty: 14 0RF Rx Instructions: must administer with a meal/food (DME) lancets [TRUEplus Lancets] 33 gauge misc See Rx Instructions .ROUTE .MEDSUPPLY Qty: 100 Rx Instructions: As directed (DME) True Metrix Glucose Test Strip Strip See Rx Instructions .ROUTE .MEDSUPPLY Qty: 10 Rx Instructions: As directed [email or web address] Aerosphere 160-9-4.8 mcg/actuation HFA aerosol inhaler 2 inh inhalation BID 90 Days Qty: 3 1RF doxycycline hyclate 100 mg capsule 100 mg PO BID 10 Days Qty: 20 0RF prednisone 10 mg tablets,dose pack See Rx Instructions PO PER PKG DIR Qty: 21 0RF Rx Instructions: PO PER PKG DIR fluconazole 150 mg tablet 150 mg PO Q3D 0 Days Qty: 2 0RF Rx Instructions: may repeat second dose 72 hrs after first dose if symptoms persist levothyroxine 88 mcg tablet 88 mcg PO DAILY 90 Days Qty: 90 0RF Farxiga 10 mg tablet 10 mg PO DAILY 90 Days Qty: 90 0RF metoprolol succinate 25 mg tablet extended release 24 hr 12.5 mg PO DAILY 90 Days Qty: 45 0RF Rx Instructions: 1/2 tab daily lisinopril-hydrochlorothiazide 10-12.5 mg tablet 1 tab PO DAILY 90 Days Qty: 90 0RF metformin 500 mg tablet 500 mg PO BID 90 Days Qty: 180 0RF doxycycline hyclate 100 mg capsule 100 mg PO BID 10 Days Qty: 20 0RF levalbuterol HCl 0.63 mg/3 mL Solution For Nebulization 0.63 mg inhalation QIDP PRN (Reason: Dyspnea) 30 Days Qty: 360 0RF ipratropium bromide 0.02 % Solution 0.5 mg inhalation QIDP PRN (Reason: Dyspnea) 30 Days Qty: 300 0RF Referrals Follow up/Referrals: Toribio Barger MD [Primary Care Provider] - See instructions Clinical Impressions Clinical Impression: COPD exacerbation, Acute on chronic respiratory failure with hypoxia and hypercapnia Discharge ED Provider: Michelle Patel [facility] General Chief Complaint: Shortness of Breath/Dyspnea Stated Complaint: Dyspnea Time Seen by Provider: 02/22/24 00:55 History of Present Illness HPI narrative: This patient is a 78-year-old female with a history of COPD, chronic respiratory failure on 3 L of nasal cannula at home, type 2 diabetes, hypothyroidism, obesity, and REAGAN presenting to the emergency department for evaluation with concern for sinus congestion, cough, chest pain, shortness of breath, nausea, and vomiting. Patient notes that she was in her usual state of health 02/20/24, but yesterday 02/21/24 around 1:00 PM she started having some chest pains that were on the left side of her chest radiating down her left arm and felt like she could not catch her breath. She notes she could not breathe through her nose because she is very congested, which made it difficult to get in oxygen. She also states that she became extremely nauseated and vomited with nonbloody nonbilious emesis. The chest pain has subsided, but she still feels like she cannot get good urine and feels extremely nauseated. She arrives by EMS who gave her 4 mg of IV Zofran as well as 125 mg of IV Solu-Medrol for symptomatic improvement. They did not administer nebulizer treatment as the patient was tachycardic. She is saturating well on her home oxygen. No other concerns noted at this time. Related Data Home Medications Medication Instructions Recorded Confirmed blood sugar diagnostic (True #10 ea 03/21/22 06/27/23 Metrix Glucose Test Strip) lancets 33 gauge (TRUEplus Lancets) #100 ea 03/21/22 06/27/23 Previous Rx's Medication Instructions Recorded ipratropium bromide 0.02 % 0.5 mg (2.5 mL) inhalation QIDP 03/03/23 solution for inhalation PRN Dyspnea 30 days #300 mL levalbuterol HCl 0.63 mg/3 mL 0.63 mg (3 mL) inhalation QIDP PRN 03/03/23 solution for nebulization Dyspnea 30 days #360 mL budesonide 160 mcg-glycopyr 9 2 inh inhalation BID 90 days #3 ea 06/23/23 mcg-formot 4.8 mcg/actuation HFA inhaler (Breztri Aerosphere) nitrofurantoin 100 mg PO Q12H 7 days #14 caps 06/27/23 monohydrate/macrocrystals 100 mg capsule (Macrobid) doxycycline hyclate 100 mg capsule 100 mg PO BID 10 days #20 caps 09/23/23 fluconazole 150 mg tablet 150 mg PO Q3D 2 doses #2 tabs 09/23/23 prednisone 10 mg tablets in a dose See Rx Instructions PO PER PKG DIR 09/23/23 pack #21 tabs dapagliflozin propanediol 10 mg 10 mg PO DAILY Diabetes 90 days 11/21/23 tablet (Farxiga) #90 tabs levothyroxine 88 mcg tablet 88 mcg PO DAILY thyroid 90 days 11/21/23 #90 tabs lisinopril 10 1 tab PO DAILY Hypertension 90 11/21/23 mg-hydrochlorothiazide 12.5 mg days #90 tabs tablet metformin 500 mg tablet 500 mg PO BID Diabetes 90 days 11/21/23 #180 tabs metoprolol succinate 25 mg 12.5 mg (1/2 x 25 mg) PO DAILY 90 11/21/23 tablet,extended release 24 hr days #45 tabs doxycycline hyclate 100 mg capsule 100 mg PO BID 10 days #20 caps 12/25/23 Allergies Allergy/AdvReac Type Severity Reaction Status Date / Time Dtragmt-FVC-ByD Reductase AdvReac myalgias Verified 06/27/23 14:50 Inhibitor [facility] Disclaimer: The information contained in this section may have been updated after the patient was seen, as this information can be updated by other users. Medical History History of smoking 30 or more pack years History of COPD Chronic respiratory failure with hypoxia Dyspnea on exertion Pneumonia Acute and chronic respiratory failure with hypoxia COPD exacerbation Sinusitis Depression Obesity (BMI 30.0-34.9) REAGAN (obstructive sleep apnea) Hypothyroid Type 2 diabetes mellitus COPD exacerbation Surgical History H/O lithotripsy Family History Father Heart attack Hypertension Sister Heart attack Brother Hypertension Social History Smoking Status: Never smoker alcohol intake: never substance use type: denies use current occupational status: retired Travel in the last 8 weeks: None household members: none housing: house current occupational exposures/hazards: No caffeine: Yes ROS Obtained: Yes All systems reviewed & no additional complaints except as documented Physical Exam General General appearance: alert, in no apparent distress and obese Head Head exam: atraumatic and normocephalic Eye Eye exam: Present normal appearance, PERRL and EOMI ENT ENT exam: Present normal exam, normal oropharynx, mucous membranes moist and normal external ear exam Neck Neck exam: Present normal inspection, full ROM and trachea midline; Absent tenderness Chest Chest inspection: Present normal inspection and symmetric chest wall rise; Absent tenderness Respiratory Respiratory exam: Present wheezes, accessory muscle use, prolonged expiratory phase and other (Diminished breath sounds with wheezing noted bilaterally. Very mild accessory muscle use with prolonged expiratory phase. No tachypnea or evidence of acute respiratory distress.); Absent respiratory distress or stridor Cardiovascular Cardiovascular exam: Present normal rhythm and tachycardia Abdominal Exam Abdominal exam: Present soft; Absent distention, tenderness or guarding Extremities Exam Extremities exam: Present normal inspection, full ROM and normal capillary refill; Absent tenderness or edema Back Exam Back exam: Present normal inspection and full ROM; Absent tenderness Neurological Exam Neurological exam: Present alert, oriented X3, CN II-XII intact and normal gait; Absent motor sensory deficit Psychiatric Psychiatric exam: Present normal affect and normal mood Skin Skin exam: Present warm and dry HEART Score HEART Score HEART Score assessment performed?: Yes History (anamnesis): Moderately suspicious ECG: Normal Age: >65 years Risk factors: 3 or more risk factors Troponin: </= normal limit HEART Score: 5 Critical Care Critical Care Time Critical Care Time: No Medical Decision Making Medical Records Medical records reviewed: Yes I reviewed the patient's medical records. Leandro Miguel Pt receiving controlled substance: No Vital Signs Vital Signs: 02/22/24 00:50 02/22/24 00:57 02/22/24 01:00 Temperature 97.7 F Temperature Source Oral Pulse Rate 112 H 107 H Pulse Rate [Apical] 108 H Respiratory Rate 18 22 21 Blood Pressure 133/70 132/64 Blood Pressure [Right Arm] 133/70 Blood Pressure Mean [Right Arm] 91 Blood Pressure Source [Right Arm] Automatic Cuff Blood Pressure Position [Right Arm] Sitting 02 Sat by Pulse Oximetry 94 L 94 L 95 Oxygen Delivery Method Nasal Cannula Room Air Nasal Cannula 02/22/24 02:15 02/22/24 02:15 Temperature Temperature Source Pulse Rate 105 H 106 H Pulse Rate [Apical] Respiratory Rate Blood Pressure Blood Pressure [Right Arm] Blood Pressure Mean [Right Arm] Blood Pressure Source [Right Arm] Blood Pressure Position [Right Arm] 02 Sat by Pulse Oximetry Oxygen Delivery Method Lab Data Labs: Lab Results 02/22/24 00:51: WBC 20.1 H*, RBC 4.44, Hgb 13.4, Hct 42.4, MCV 95.6, MCH 30.1, M CHC 31.5 L, RDW 14.1, Plt Count 272, MPV 8.4, Neut % (Auto) 73.2, Lymph % (Auto) 21.4, [place] % (Auto) 4.4, Eos % (Auto) 0.3, Baso % (Auto) 0.7, Neut # (Auto) 14.7 H, Lymph # (Auto) 4.3, [place] # (Auto) 0.9, Eos # (Auto) 0.1, Baso # (Auto) 0.1, Total Counted 100, Neutrophils % (Manual) 67, Lymphocytes % (Manual) 32, M onocytes % (Manual) 1 L, Nucleated RBCs 1, Platelet Estimate Normal, Stomatocytes 1+, D-Dimer 0.65 H, Sodium 139, Potassium 3.8, Chloride 96 L, C arbon Dioxide 34 H, Anion Gap 12.8, BUN 23 H, Creatinine 1.00, Estimated Creat Clear 55, Estimated GFR 54 L, Est GFR ( Amer) 65, Glucose 238 H, Calcium 9.5, Total Bilirubin 0.5, AST 35, ALT 25, Alkaline Phosphatase 68, Troponin I < 0.01, NT-Pro-B Natriuret Pep 88.6, Total Protein 7.2, Albumin 4.2, Globulin 3.0, Albumin/Globulin Ratio 1.4, Lipase 107 02/22/24 00:57: VBG pH 7.35, VBG pCO2 53.4 H, VBG pO2 52.2 H, VBG HCO3 28.8, VBG Total CO2 30.4 H, VBG O2 Saturation 86.2 H, VBG Base Excess 3.1 H, VBG Lactic Acid 2.5 H 02/22/24 01:07: SARS-CoV-2 (PCR) Not detected, Influenza A Untype (PCR) Not detected, Influenza Type B (PCR) Not detected 02/22/24 02:23: Urine Color Yellow, Urine Appearance Cloudy, Urine pH 5.5, Ur Specific [place] 1.020, Urine Protein Negative, Urine Glucose (UA) 3+, Urine Ketones Trace, Urine Blood 1+, Urine Nitrate Negative, Urine Bilirubin Negative, Urine Urobilinogen 0.2, Ur Leukocyte Esterase Negative, Urine RBC None, Urine WBC 10-20, Ur Squamous Epith Cells 10-20, Amorphous Sediment 1+, Urine Bacteria 3+ 02/22/24 00:51 02/22/24 00:51 Response Orders (Tests/Meds): ED MEDICATIONS Discontinued Medications Generic Name Dose Route Start Last Admin Trade Name Freq PRN Reason Stop Dose Admin Albuterol/Ipratropium 9 ml 02/22/24 01:01 02/22/24 02:13 Ipratropium/Albuterol 3 Ml Neb IH 02/22/24 01:02 9 ml ONCE ONE Administration Doxycycline Hyclate 100 mg/ 250 mls @ 166.667 mls/hr 02/22/24 01:41 02/22/24 02:07 Sodium Chloride IV 02/22/24 01:42 166.667 mls/hr ONCE ONE Administration Metoclopramide HCl 10 mg 02/22/24 01:01 02/22/24 01:05 Metoclopramide Hcl 10mg/2ml Vial IVP 02/22/24 01:02 10 mg ONCE ONE Administration Promethazine HCl 12.5 mg 02/22/24 01:22 02/22/24 01:32 Promethazine Hcl 25mg/Ml 1ml Vial IV 02/22/24 01:23 12.5 mg ONCE ONE Administration Sodium Chloride 25 ml 02/22/24 01:22 02/22/24 01:32 Sodium Chloride 0.9% 25ml Bag IV 02/22/24 01:23 25 ml ONCE ONE Administration ORDERS Category Date Time Status CXR --portable [XR chest portable] Stat Exams 02/22/24 00:57 Completed BNP [NT Pro Brain Natriuretic Pep.] Stat Lab 02/22/24 00:51 Completed Complete Blood Count Auto Diff Stat Lab 02/22/24 00:51 Completed Comprehensive Metabolic Panel Stat Lab 02/22/24 00:51 Completed D-Dimer Stat Lab 02/22/24 00:51 Completed Lipase Stat Lab 06/02/24 00:51 Completed Rapid PCR Covid and Flu A/B Stat Lab 02/22/24 01:07 Completed Troponin I Q3H Lab 02/22/24 04:00 Ordered Troponin I Q3H Lab 02/22/24 07:00 Ordered Troponin I Stat Lab 02/22/24 00:51 Completed UA [Urinalysis and Microscopic] Stat Lab 02/22/24 02:23 Completed Urine Culture Stat Micro 02/22/24 02:23 Received VBG [Venous Blood Gas] Stat RT 02/22/24 00:57 Completed ECG Data Tracing #1: Attestation: I reviewed this ECG and interpreted as documented below: ECG Narrative: Sinus tachycardia with a ventricular rate of [address]/T wave changes which are unchanged from prior EKG from a year ago. No acute STEMI. ECG initial impression date: 02/22/24 ECG initial impression time: 00:57 MDM Narrative Medical Decision Narrative: In summary, this patient is a 78-year-old female presenting to the Emergency Department for evaluation of nasal congestion, cough, nausea, vomiting, chest pain, shortness of breath. Differential diagnoses considered include but are not limited to viral syndrome, pneumonia, sinusitis, respiratory failure, COPD exacerbation, ACS, dysrhythmia, CHF exacerbation. Ruling out the most morbid conditions drove assessment. It should be noted patient's history includes COPD which is not at goal therapy. This complicates all aspects of care by increasing patient's risk for morbidity. I reviewed patient's past medical records and noted previous evaluation a year ago in emergency department for respiratory failure related to COPD. On exam, the patient is in no acute distress. She is tachycardic but otherwise vitals are reassuring on her home oxygen on cardiac telemetry. She has diminished breath sounds bilaterally with wheezing noted. Abdominal exam is benign. Workup included CBC, CMP, lipase, VBG, troponin, chest x-ray, viral swab, and EKG. EKG demonstrates no changes from prior EKG. Patient was given IV Reglan for continued nausea as well as 3 DuoNebs. She already received methylprednisolone prior to arrival with EMS. I independently interpreted x-ray prior to the radiologist read and noted no obvious acute large area of focal consolidation. Please see their read for final interpretation. Labs were obtained that demonstrated leukocytosis. She has a mildly decompensated respiratory acidosis. Mildly elevated lactic acid. Patient is afebrile and nontoxic appearing. Blood cultures were added and IV doxycycline was ordered with concern for upper respiratory infection/COPD exacerbation. Urinalysis was sent and is grossly contaminated. Urine culture pending. She denies any urinary symptoms at this time. On reassessment, patient had some improvement in aeration after DuoNeb's, but she continues to have tachycardia on cardiac telemetry, prolonged expiratory phase, and diminished breath sounds with wheezing bilaterally. Her oxygen saturation is okay at rest on her home 3 L nasal cannula. We tried to get her up to assist her to the bathroom, as she typically is functional at home and does all of her own ADLs and cares for herself, however even when moving to the bedside commode, she became extremely short of air and required significant assistance. This is an acute change from her baseline. Given her extreme shortness of breath with exertion, I feel that she would benefit from admission for further monitoring. I had an interactive discussion with the hospitalist who admitted the patient in stable condition.
[2024-02-22 01:03] LABS: VBG Base Excess 3.1 mmol/L (-2.4-2.3); VBG HCO3 28.8 mmol/L (23-30); VBG Oxygen Saturation 86.2 % (50-70); VBG PH 7.35 mmol/L (7.31-7.41); VBG PO2 52.2 mmol/L (28-40); VBG Total CO2 30.4 mmol/L (23-27)
[2024-02-22 01:04] LABS: Lactate Venous 2.5 mmol/L (0.4-2.0); VBG PCO2 53.4 mmol/L (35-51)
[2024-02-22 01:05] LABS: MANUAL DIFFERENTIAL MANUAL DIFFERENTIAL (MANUAL DIFF)
[2024-02-22] MEDS: METOCLOPRAMIDE HCL 10MG/2ML VIAL 10 MG IVP (01:05)
[2024-02-22 01:08] LABS: Alanine Aminotransferase 25 U/L (12-78); Albumin Level 4.2 g/dl (3.5-5.0); Albumin/Globulin Ratio 1.4 (1.1-1.8); Alkaline Phosphatase 68 U/L (38-126); Anion Gap 12.8 mEq/L (5-15); Aspartate Amino Transferase 35 U/L (14-36); Bilirubin,Total 0.5 mg/dl (0.2-1.3); Blood Urea Nitrogen 23 mg/dl (7-17); Calcium 9.5 mg/dl (8.4-10.2); Carbon Dioxide 34 mmol/L (22.0-30.0); Chloride 96 mmol/L (98-107); Creatinine Clearance Estimated 55 mL/min (50-200); Estimated Glomerular Filt Rate 54 ml/min (>60); GFR (African American) 65 ML/MIN (>60); Glucose 238 mg/dl (74-100); Lipase 107 U/L (23-300); Potassium 3.8 mmoL/L (3.5-5.1); Sodium 139 mmol/L (136-145); Total Protein,Serum 7.2 g/dl (6.3-8.2)
[2024-02-22 01:13] LABS: D-Dimer 0.65 ug/mL (0.0-0.5)
[2024-02-22 01:15] LABS: Coronavirus 19, PCR Not Detected (NotDetected); Influenza A, PCR Not Detected (NotDetected); Influenza B, PCR Not Detected (NotDetected)
[2024-02-22 01:17] LABS: NT Pro Brain Natriuretic Pep. 88.6 pg/mL (0-450)
[2024-02-22 01:25] LABS: Troponin I < 0.01 ng/ml (0.00-0.034)
[2024-02-22] MEDS: PROMETHAZINE HCL 25MG/ML 1ML VIAL 12.5 MG IV (01:32)
[2024-02-22] MEDS: SODIUM CHLORIDE 0.9% 25ML BAG 25 ML IV (01:32)
[2024-02-22 01:39] LABS: Lymphocytes % 32 % (10-50); Monocytes % 1 % (2-9); Neutrophils % 67 % (42-76); Nucleated Red Blood Cells 1; Platelet Estimate Normal; Total Cells Counted 100
[2024-02-22 01:40] LABS: Stomatocytes 1+
[2024-02-22] MEDS: DOXYCYCLINE HYCLATE 100 MG in 0.9 % SODIUM CHLORIDE 250 ML 166.667000000000002 MG IV ×2 (02:07→11:02)
[2024-02-22] MEDS: IPRATROPIUM/ALBUTEROL 3 ML NEB 9 ML IH (02:13)
--- NOTE | 2024-02-22 02:25 | PC.NURSE ---
pt assisted to [facility]. clean catch UA collected and sent to lab at this time
[2024-02-22 02:26] LABS: Microscopic, Urine URINE MICROSCOPIC (MICROSCOPIC)
[2024-02-22 02:31] LABS: Appearance,Urine CLOUDY (Clear); Bilirubin,Urine Negative (Negative); Blood, Urine 1+ (Negative); Color,Urine YELLOW (Yellow); Glucose,Urine (UA) 3+ (Negative); Ketones,Urine TRACE (Negative); Leukocyte Esterase,Urine Negative (Negative); Nitrate,Urine Negative (Negative); PH,Urine 5.5 (5.0-8.5); Protein,Urine Negative (Negative); Urobilinogen,Urine 0.2 EU/dl (0.2)
[2024-02-22 02:44] LABS: Amorphous Sediment,Urine 1+ /lpf; Bacteria,Urine 3+ /lpf
--- NOTE | 2024-02-22 02:58 | PC.NURSE ---
called fun house operator and notified of admission
--- NOTE | 2024-02-22 03:06 | P.HP_ITS ---
History of Present Illness *Admission Date: 02/22/24 *Reason for visit:: SOB, N/V *History of present illness: This is a 78-year-old female with a PMHx of COPD, chronic respiratory failure on 3 L of nasal cannula at home, type 2 diabetes, hypothyroidism, obesity, and REAGAN presenting to the emergency department for evaluation with concern for sinus congestion, cough, chest pain, shortness of breath, nausea, and vomiting. on my assessment patient sommlonent, history obtained form ED and daugther at bedside. Per ED patient started having difficulty breathing around two days ago, with some sources of chest pain/tightness. She also states that she became extremely nauseated and vomited with nonbloody nonbilious emesis. The chest pain has subsided. Admitted for further monitoring [facility] Disclaimer: The information contained in this section may have been updated after the patient was seen, as this information can be updated by other users. Medical History (Updated 02/22/24 @ 04:03 by Allegra Singh RN) Kidney stone History of smoking 30 or more pack years History of COPD Chronic respiratory failure with hypoxia Dyspnea on exertion Pneumonia Acute and chronic respiratory failure with hypoxia COPD exacerbation Sinusitis Depression Obesity (BMI 30.0-34.9) REAGAN (obstructive sleep apnea) Hypothyroid Type 2 diabetes mellitus COPD exacerbation Surgical History H/O lithotripsy Family History Father Heart attack Hypertension Sister Heart attack Brother Hypertension Social History (Updated 02/22/24 @ 04:03 by Allegra Singh RN) Smoking Status: Former smoker alcohol intake: never substance use type: denies use current occupational status: retired Travel in the last 8 weeks: None household members: none housing: house current occupational exposures/hazards: No caffeine: Yes Review of Systems Review of Systems Review of systems:: pertinent systems reviewed and negative unless documented below Meds Home Medications and Allergies Home Medications Medication Instructions Recorded Confirmed Type blood sugar diagnostic (True #10 ea 03/21/22 02/22/24 History Metrix Glucose Test Strip) lancets 33 gauge (TRUEplus Lancets) #100 ea 03/21/22 02/22/24 History ipratropium bromide 0.02 % 0.5 mg (2.5 mL) inhalation QIDP 03/03/23 02/22/24 Rx solution for inhalation PRN Dyspnea 30 days #300 mL levalbuterol HCl 0.63 mg/3 mL 0.63 mg (3 mL) inhalation QIDP PRN 03/03/23 02/22/24 Rx solution for nebulization Dyspnea 30 days #360 mL budesonide 160 mcg-glycopyr 9 2 inh inhalation BID 90 days #3 ea 06/23/23 02/22/24 Rx mcg-formot 4.8 mcg/actuation HFA inhaler ([employer]) dapagliflozin propanediol 10 mg 10 mg PO DAILY Diabetes 90 days 11/21/23 02/22/24 Rx tablet (Farxiga) #90 tabs levothyroxine 88 mcg tablet 88 mcg PO DAILY thyroid 90 days 11/21/23 02/22/24 Rx #90 tabs lisinopril 10 1 tab PO DAILY Hypertension 90 11/21/23 02/22/24 Rx mg-hydrochlorothiazide 12.5 mg days #90 tabs tablet metformin 500 mg tablet 500 mg PO BID Diabetes 90 days 11/21/23 02/22/24 Rx #180 tabs metoprolol succinate 25 mg 12.5 mg (1/2 x 25 mg) PO DAILY 90 11/21/23 02/22/24 Rx tablet,extended release 24 hr days #45 tabs New Prescriptions to Start Prescriptions: Allergies Allergy/AdvReac Type Severity Reaction Status Date / Time [id number] Reductase AdvReac myalgias Verified 06/27/23 14:50 Inhibitor Exam Data for Last 24 hours Vital signs and Labs for Last 24 Hours: Temp Pulse Resp BP Pulse Ox O2 Del Method 97.7 F 106 H 21 132/64 95 Nasal Cannula 02/22/24 00:57 02/22/24 02:15 02/22/24 01:00 02/22/24 01:00 02/22/24 01:00 02/22/24 01:00 Laboratory Results - last 24 hr 02/22/24 00:51: WBC 20.1 H*, RBC 4.44, Hgb 13.4, Hct 42.4, MCV 95.6, MCH 30.1, MCHC 31.5 L, RDW 14.1, Plt Count 272, MPV 8.4, Neut % (Auto) 73.2, Lymph % (Auto) 21.4, [place] % (Auto) 4.4, Eos % (Auto) 0.3, Baso % (Auto) 0.7, Neut # (Auto) 14.7 H, Lymph # (Auto) 4.3, [place] # (Auto) 0.9, Eos # (Auto) 0.1, Baso # (Auto) 0.1, Total Counted 100, Neutrophils % (Manual) 67, Lymphocytes % (Manual) 32, Monocytes % (Manual) 1 L, Nucleated RBCs 1, Platelet Estimate Normal, Stomatocytes 1+, D-Dimer 0.65 H, Sodium 139, Potassium 3.8, Chloride 96 L, Carbon Dioxide 34 H, Anion Gap 12.8, BUN 23 H, Creatinine 1.00, Estimated Creat Clear 55, Estimated GFR 54 L, Est GFR ( Amer) 65, Glucose 238 H, Calcium 9.5, Total Bilirubin 0.5, AST 35, ALT 25, Alkaline Phosphatase 68, Troponin I < 0.01, NT-Pro-B Natriuret Pep 88.6, Total Protein 7.2, Albumin 4.2, Globulin 3.0, Albumin/Globulin Ratio 1.4, Lipase 107 02/22/24 00:57: VBG pH 7.35, VBG pCO2 53.4 H, VBG pO2 52.2 H, VBG HCO3 28.8, VBG Total CO2 30.4 H, VBG O2 Saturation 86.2 H, VBG Base Excess 3.1 H, VBG Lactic Acid 2.5 H 02/22/24 01:07: SARS-CoV-2 (PCR) Not detected, Influenza A Untype (PCR) Not detected, Influenza Type B (PCR) Not detected 02/22/24 02:23: Urine Color Yellow, Urine Appearance Cloudy, Urine pH 5.5, Ur Specific [place] 1.020, Urine Protein Negative, Urine Glucose (UA) 3+, Urine Ketones Trace, Urine Blood 1+, Urine Nitrate Negative, Urine Bilirubin Negative, Urine Urobilinogen 0.2, Ur Leukocyte Esterase Negative, Urine RBC None, Urine WBC 10-20, Ur Squamous Epith Cells 10-20, Amorphous Sediment 1+, Urine Bacteria 3+ Temp Pulse Resp BP Pulse Ox 98.3 F 112 H 20 164/80 H 96 02/28/23 22:32 02/28/23 23:30 02/28/23 23:30 02/28/23 23:30 02/28/23 23:30 Laboratory Results - last 24 hr 02/28/23 22:41: Specimen Source Right radial, O2 % 5lpm n/c, ABG pH 7.37, ABG pCO2 52.5 H, ABG pO2 101.6 H, ABG HCO3 29.7 H, ABG Total CO2 31.3 H, ABG O2 Saturation 98, ABG Base Excess 4.5 H, Silas Test Acceptable 02/28/23 22:49: WBC 11.2 H, RBC 4.47, Hgb 13.3, Hct 41.6, MCV 93.1, MCH 29.7, MCHC 31.9, RDW 13.7, Plt Count 260, MPV 8.5, Neut % (Auto) 75.5, Lymph % (Auto) 16.3, [place] % (Auto) 7.2, Eos % (Auto) 0.7, Baso % (Auto) 0.3, Neut # (Auto) 8.5 H, Lymph # (Auto) 1.8, [place] # (Auto) 0.8, Eos # (Auto) 0.1, Baso # (Auto) 0.0, ESR 32 H 02/28/23 22:49: Sodium 137, Potassium 4.0, Chloride 93 L, Carbon Dioxide 33 H, Anion Gap 15.0, BUN 15, Creatinine 0.60, Estimated Creat Clear 62, Estimated GFR 97, Est GFR ( Amer) 117, Glucose 188 H, Calcium 9.3, Total Bilirubin 0.6, AST 27, ALT 20, Alkaline Phosphatase 93, Troponin I < 0.01, C-Reactive Protein 218.3 H, NT-Pro-B Natriuret Pep 102, Total Protein 7.8, Albumin 4.3, Globulin 3.5 H, Albumin/Globulin Ratio 1.2, Procalcitonin 0.081 02/28/23 22:49: Lactate 1.5 02/28/23 22:58: SARS-CoV-2 (PCR) Not detected, Influenza A Untype (PCR) Not detected, Influenza Type B (PCR) Not detected I & O for Last 24 hours: Intake & Output 05/3002/20/24 02/21/24 02/22/24 23:59 23:59 23:59 23:59 Weight 74.843 kg Intake & Output 02/25/23 02/26/23 02/27/23 02/28/23 23:59 23:59 23:59 23:59 Weight 83.007 kg Constitutional Constitutional: no acute distress Comments: nasal cannula *Routine HEENT Exam Head: Present normocephalic Eye: Present EOMI and PERRL ENT: Present mucous membranes moist *Routine Neck Exam Neck: Present supple; Absent lymphadenopathy *Routine Respiratory Exam Respiratory: Present decreased breath sounds, prolonged expiratory phase, wheezes and diminished air movement; Absent CTA bilaterally or respiratory distress *Routine Cardiovascular Exam Cardiovascular: Present RRR *Routine Abdominal Exam Abdominal: Present soft and normoactive bowel sounds; Absent tenderness *Routine Rectal Exam Rectal:: deferred *Routine Genitalia Exam Genitalia:: deferred *Routine Extremities Exam Extremities: Absent cyanosis, clubbing or edema *Routine Skin Exam Skin: Present warm; Absent rash *Routine Neurological Exam Neurological: Present alert and oriented X3 H&P: Result Imaging and Cardiology EKG: Status: image reviewed by me, Preliminary report and final report Chest x-ray: Status: image reviewed by me, Preliminary report and final report Assessment and Plan *Assessment and plan (1) Acute on chronic respiratory failure with hypoxia and hypercapnia: Status: Acute Category: Medical Code(s): J96.21 - Acute and chronic respiratory failure with hypoxia; J96.22 - Acute and chronic respiratory failure with hypercapnia (2) COPD exacerbation: Status: Acute Category: Medical Code(s): J44.1 - Chronic obstructive pulmonary disease with (acute) exacerbation (3) Dyspnea on exertion: Status: Acute Category: Medical Code(s): R06.09 - Other forms of dyspnea (4) REAGAN (obstructive sleep apnea): Status: Chronic Category: Medical Code(s): G47.33 - Obstructive sleep apnea (adult) (pediatric) (5) Type 2 diabetes mellitus: Status: Chronic Qualifiers: Diabetes mellitus complication status: without complication Diabetes mellitus fci insulin use: without fci use Qualified Code(s): E11.9 - Type 2 diabetes mellitus without complications Category: Medical Code(s): E11.9 - Type 2 diabetes mellitus without complications (6) Hypothyroid: Status: Chronic Qualifiers: Hypothyroidism type: acquired Qualified Code(s): E03.9 - Hypothyroidism, unspecified Category: Medical Code(s): E03.9 - Hypothyroidism, unspecified (7) Obesity (BMI 30.0-34.9): Status: Acute Category: Medical Code(s): E66.9 - Obesity, unspecified Plan 78-year-old female with a PMHx of COPD, chronic respiratory failure on 3 L of nasal cannula at home, type 2 diabetes, hypothyroidism, obesity, and REAGAN presenting to the emergency department for evaluation with concern for sinus congestion, cough, chest pain, shortness of breath, N/V. EMS gave her 4 mg of IV Zofran as well as 125 mg of IV Solu-Medrol for symptomatic improvement. They did not administer nebulizer treatment as the patient was tachycardic. She is saturating well on her home oxygen. No other concerns noted at this time. initial work up. Labs were obtained that demonstrated leukocytosis. She has a mildly decompensated respiratory acidosis. Mildly elevated lactic acid. Patient is afebrile and nontoxic appearing. CXR negative. EKG negative. while attempted to ambulate patient she remains weak and became hypoxic. ED requested admission.Agreed. Plan as follow: Acute on chronic respiratory failure COPD exacerbation Dysnea on exertion wean to PO as tolerated -DuoNebs -Incentive spirometer - methylpred in ED -Doxy 100mg IV BID culture pending repeat labs monitor WBC DM. Suspected uncontrolled - hold metformin inpatient - SSI low protocol, increase if hyperglycemic with steroids hypothyroid - nursing to reconcile meds - restart home meds HTN - nursing reconcile meds - restart home meds obesity DVT proph - lovenox Full code
--- NOTE | 2024-02-22 03:11 | PC.NURSE ---
report called to Jose Singh RN at this time
[2024-02-22 03:44] LABS: Troponin I < 0.01 ng/ml (0.00-0.034)
[2024-02-22] MEDS: 0.9 % SODIUM CHLORIDE 1000ML 1,000 ML 75 ML IV (04:07)
[2024-02-22 05:05] LABS: Reflex Lactic Add Lactic Reflex
--- NOTE | 2024-02-22 05:30 | PC.NURSE ---
Pt admitted to floor this shift. Remains on 3L NC, baseline at home, pt desats on exertion to 88%, but quickly recovers once at rest. Some wheezing noted bilateral. Left leg edema noted 1+ pitting. Pt has rested well since arriving to floor. Daughters at the bedside. Pt remained in personal clothing at request. No skin issues noted. Sinus tach on tele. Bedside commode with 1 assist. Call light in reach.
[2024-02-22] MEDS: humaLOG 100 UNITS/ML 10ML VIAL (SSI) SQ ×2 (05:51→11:12)
[2024-02-22 05:54] LABS: POC Glucose,Bedside 272 (70-110)
[2024-02-22] MEDS: IPRATROPIUM/ALBUTEROL 3 ML NEB IH (06:16)
[2024-02-22 07:22] LABS: Basophils # 0.1 K/mm3 (0-0.2); Basophils % 0.3 % (0.1-2.0); Eosinophils # 0.1 K/mm3 (0.0-0.4); Eosinophils % 0.3 % (0.1-12.0); Hematocrit 38.5 % (37.0-47.0); Hemoglobin 12.3 g/dL (12.2-16.2); Lymphocytes # 0.9 K/mm3 (0.7-4.5); Mean Corpuscular Hemoglobin 30.4 pg (27.0-31.2); Mean Corpuscular Volume 95.1 fl (81-99); Mean Platelet Volume 8.9 fl (7.4-10.4); Monocytes # 0.3 K/mm3 (0.1-1.0); Monocytes % 1.9 % (1.7-9.3); Neutrophils # 16.8 K/mm3 (1.8-7.8); Neutrophils % 92.5 % (37.0-80.0); Platelet Count 254 K/mm3 (142-424); Red Blood Count 4.05 M/mm3 (4.20-5.40); White Blood Count 18.1 K/mm3 (4.8-10.8)
[2024-02-22 07:27] LABS: Lactic Acid Follow Up (RFLX 1) 1.5 mmol/L (0.7-2.1)
[2024-02-22 07:28] LABS: Chloride 100 mmol/L (98-107); Potassium 3.7 mmoL/L (3.5-5.1); Sodium 137 mmol/L (136-145)
[2024-02-22 07:30] LABS: Alanine Aminotransferase 21 U/L (12-78); Alkaline Phosphatase 62 U/L (38-126); Anion Gap 11.7 mEq/L (5-15); Aspartate Amino Transferase 26 U/L (14-36); Bilirubin,Total 0.4 mg/dl (0.2-1.3); Blood Urea Nitrogen 21 mg/dl (7-17); Carbon Dioxide 29 mmol/L (22.0-30.0); Creatinine Clearance Estimated 62 mL/min (50-200); Estimated Glomerular Filt Rate 54 ml/min (>60); GFR (African American) 65 ML/MIN (>60)
[2024-02-22 07:31] LABS: Albumin Level 3.7 g/dl (3.5-5.0); Albumin/Globulin Ratio 1.4 (1.1-1.8); Calcium 8.9 mg/dl (8.4-10.2); Globulin 2.7 g/dL (1.3-3.2); Glucose 248 mg/dl (74-100); Magnesium 1.7 mg/dl (1.6-2.3); Total Protein,Serum 6.4 g/dl (6.3-8.2)
[2024-02-22 07:51] LABS: Troponin I < 0.01 ng/ml (0.00-0.034)
[2024-02-22] MEDS: METOPROLOL SUCCINATE XL 25MG TABLET 12.5 MG PO (08:52)
[2024-02-22] MEDS: PANTOPRAZOLE 40MG TABLET 40 MG PO (08:52)
[2024-02-22] MEDS: LEVOTHYROXINE 88MCG (0.088MG) TAB 88 MCG PO (08:52)
[2024-02-22] MEDS: LISINOPRIL/HCTZ 10-12.5MG TABLET 1 EACH PO (08:53)
[2024-02-22] MEDS: ENOXAPARIN 40MG/0.4ML SYRINGE 40 MG SQ (08:54)
[2024-02-22] MEDS: LEVALBUTEROL 0.63MG/3ML NEB 0.630000000000000004 MG IH ×2 (09:19→12:58)
--- NOTE | 2024-02-22 09:30 | [facility].PHAINT1 ---
Pharmacy Intervention Comments: MEDICATION RECONCILIATION COMPLETE USING EXTERNAL PHARMACY FILL HISTORY AND MOST RECENT MD OFFICE VISIT NOTE.
[2024-02-22 11:20] LABS: POC Glucose,Bedside 251 (70-110)
--- NOTE | 2024-02-22 12:38 | EXP.DC.SUM ---
General Admission date:: 02/22/24 Discharge date: 02/22/24 HPI HPI HPI: This is a 78-year-old female with a PMHx of COPD, chronic respiratory failure on 3 L of nasal cannula at home, type 2 diabetes, hypothyroidism, obesity, and REAGAN presenting to the emergency department for evaluation with concern for sinus congestion, cough, chest pain, shortness of breath, nausea, and vomiting. on my assessment patient sommlonent, history obtained form ED and daugther at bedside. Per ED patient started having difficulty breathing around two days ago, with some sources of chest pain/tightness. She also states that she became extremely nauseated and vomited with nonbloody nonbilious emesis. The chest pain has subsided. Admitted for further monitoring Hospital Course Hospital Course Hospital Course: 78-year-old female with a PMHx of COPD, chronic respiratory failure on 3 L of nasal cannula at home, type 2 diabetes, hypothyroidism, obesity, and REAGAN presenting to the emergency department for evaluation with concern for sinus congestion, cough, chest pain, shortness of breath, N/V. EMS gave her 4 mg of IV Zofran as well as 125 mg of IV Solu-Medrol for symptomatic improvement. They did not administer nebulizer treatment as the patient was tachycardic. She is saturating well on her home oxygen. No other concerns noted at this time. initial work up. Labs were obtained that demonstrated leukocytosis. She has a mildly decompensated respiratory acidosis. Mildly elevated lactic acid. Patient is afebrile and nontoxic appearing. CXR negative. EKG negative. while attempted to ambulate patient she remains weak and became hypoxic. ED requested admission.Agreed. Plan as follow: Acute on chronic respiratory failure - resolved COPD exacerbation - improved Dysnea on exertion - improved patient mentions her breathing has improved and she is wishing to go home, patient advised to establish and follow up with pulmonaologist, referral given, patient also given prescrition for nebulizer treatments, patient is at baseline oxygen needs and do not have wheezing on lung exam, patient mentions she wants to go home and get some rest, she was prescribed antiobiotics and medications sent to the pharmacy. On the date of discharge, the patient reported feeling stable. The patient was found not to be in any acute distress, and no new abnormalities on physical examination. Further, the patient expressed appropriate understanding of, and agreement with, the discharge recommendations, medications, and plan. Time spent 37 mins Exam Data for Last 24 hours Vital signs and Labs for Last 24 Hours: Temp Pulse Resp BP Pulse Ox O2 Del Method O2 Flow Rate 98.5 F 110 H 16 118/70 93 L Nasal Cannula 3 02/22/24 08:00 02/22/24 09:20 02/22/24 08:00 02/22/24 08:00 02/22/24 09:20 02/22/24 09:20 02/22/24 09:20 Laboratory Results - last 24 hr 02/22/24 00:51: WBC 20.1 H*, RBC 4.44, Hgb 13.4, Hct 42.4, MCV 95.6, MCH 30.1, MCHC 31.5 L, RDW 14.1, Plt Count 272, MPV 8.4, Neut % (Auto) 73.2, Lymph % (Auto) 21.4, [place] % (Auto) 4.4, Eos % (Auto) 0.3, Baso % (Auto) 0.7, Neut # (Auto) 14.7 H, Lymph # (Auto) 4.3, [place] # (Auto) 0.9, Eos # (Auto) 0.1, Baso # (Auto) 0.1, Total Counted 100, Neutrophils % (Manual) 67, Lymphocytes % (Manual) 32, Monocytes % (Manual) 1 L, Nucleated RBCs 1, Platelet Estimate Normal, Stomatocytes 1+, D-Dimer 0.65 H, Sodium 139, Potassium 3.8, Chloride 96 L, Carbon Dioxide 34 H, Anion Gap 12.8, BUN 23 H, Creatinine 1.00, Estimated Creat Clear 55, Estimated GFR 54 L, Est GFR ( Amer) 65, Glucose 238 H, Calcium 9.5, Total Bilirubin 0.5, AST 35, ALT 25, Alkaline Phosphatase 68, Troponin I < 0.01, NT-Pro-B Natriuret Pep 88.6, Total Protein 7.2, Albumin 4.2, Globulin 3.0, Albumin/Globulin Ratio 1.4, Lipase 107 02/22/24 00:57: VBG pH 7.35, VBG pCO2 53.4 H, VBG pO2 52.2 H, VBG HCO3 28.8, VBG Total CO2 30.4 H, VBG O2 Saturation 86.2 H, VBG Base Excess 3.1 H, VBG Lactic Acid 2.5 H 02/22/24 01:07: SARS-CoV-2 (PCR) Not detected, Influenza A Untype (PCR) Not detected, Influenza Type B (PCR) Not detected 02/22/24 02:23: Urine Color Yellow, Urine Appearance Cloudy, Urine pH 5.5, Ur Specific [place] 1.020, Urine Protein Negative, Urine Glucose (UA) 3+, Urine Ketones Trace, Urine Blood 1+, Urine Nitrate Negative, Urine Bilirubin Negative, Urine Urobilinogen 0.2, Ur Leukocyte Esterase Negative, Urine RBC None, Urine WBC 10-20, Ur Squamous Epith Cells 10-20, Amorphous Sediment 1+, Urine Bacteria 3+ 02/22/24 03:15: Troponin I < 0.01 02/22/24 05:46: POC Glucose 272 H 02/22/24 07:00: WBC 18.1 H, RBC 4.05 L, Hgb 12.3, Hct 38.5, MCV 95.1, MCH 30.4, MCHC 32.0, RDW 14.0, Plt Count 254, MPV 8.9, Neut % (Auto) 92.5 H, Lymph % (Auto) 5.0 L, [place] % (Auto) 1.9, Eos % (Auto) 0.3, Baso % (Auto) 0.3, Neut # (Auto) 16.8 H, Lymph # (Auto) 0.9, [place] # (Auto) 0.3, Eos # (Auto) 0.1, Baso # (Auto) 0.1, Sodium 137, Potassium 3.7, Chloride 100, Carbon Dioxide 29, Anion Gap 11.7, BUN 21 H, Creatinine 1.00, Estimated Creat Clear 62, Estimated GFR 54 L, Est GFR ( Amer) 65, Glucose 248 H, Lactate 1.5, Calcium 8.9, Magnesium 1.7, Total Bilirubin 0.4, AST 26 D, ALT 21, Alkaline Phosphatase 62, Troponin I < 0.01, Total Protein 6.4, Albumin 3.7 D, Globulin 2.7, Albumin/Globulin Ratio 1.4 02/22/24 10:54: POC Glucose 251 H I & O for Last 24 hours: Intake & Output 02/19/24 02/20/24 02/21/24 02/22/24 23:59 23:59 23:59 23:59 Intake Total 378 / 378 Output Total 0 / 0 Balance 378 / 378 Weight 85.003 kg Constitutional Constitutional: no acute distress *Routine HEENT Exam Head: Present normocephalic Eye: Present EOMI and PERRL ENT: Present mucous membranes moist *Routine Neck Exam Neck: Present supple; Absent lymphadenopathy *Routine Respiratory Exam Respiratory: Present CTA bilaterally *Routine Cardiovascular Exam Cardiovascular: Present RRR *Routine Abdominal Exam Abdominal: Present soft and normoactive bowel sounds; Absent tenderness *Routine Extremities Exam Extremities: Absent cyanosis, clubbing or edema *Routine Skin Exam Skin: Present warm; Absent rash *Routine Neurological Exam Neurological: Present alert and oriented X3 Results Data Completed and Pending Labs on day of discharge: Labs from last 24 hours 02/22/24 02/22/24 02/22/24 10:54 07:00 05:46 WBC 18.1 H RBC 4.05 L Hgb 12.3 Hct 38.5 MCV 95.1 MCH 30.4 MCHC 32.0 RDW 14.0 Plt Count 254 MPV 8.9 Neut % (Auto) 92.5 H Lymph % (Auto) 5.0 L [place] % (Auto) 1.9 Eos % (Auto) 0.3 Baso % (Auto) 0.3 Neut # (Auto) 16.8 H Lymph # (Auto) 0.9 [place] # (Auto) 0.3 Eos # (Auto) 0.1 Baso # (Auto) 0.1 Total Counted Neutrophils % (Manual) Lymphocytes % (Manual) Monocytes % (Manual) Nucleated RBCs Platelet Estimate Stomatocytes D-Dimer VBG pH VBG pCO2 VBG pO2 VBG HCO3 VBG Total CO2 VBG O2 Saturation VBG Base Excess VBG Lactic Acid Sodium 137 Potassium 3.7 Chloride 100 Carbon Dioxide 29 Anion Gap 11.7 BUN 21 H Creatinine 1.00 Estimated Creat Clear 62 Estimated GFR 54 L Est GFR ( Amer) 65 Glucose 248 H POC Glucose 251 H 272 H Lactate 1.5 Calcium 8.9 Magnesium 1.7 Total Bilirubin 0.4 AST 26 D ALT 21 Alkaline Phosphatase 62 Troponin I < 0.01 NT-Pro-B Natriuret Pep Total Protein 6.4 Albumin 3.7 D Globulin 2.7 Albumin/Globulin Ratio 1.4 Lipase Urine Color Urine Appearance Urine pH Ur Specific [place] Urine Protein Urine Glucose (UA) Urine Ketones Urine Blood Urine Nitrate Urine Bilirubin Urine Urobilinogen Ur Leukocyte Esterase Urine RBC Urine WBC Ur Squamous Epith Cells Amorphous Sediment Urine Bacteria SARS-CoV-2 (PCR) Influenza A Untype (PCR) Influenza Type B (PCR) 02/22/24 02/22/24 02/22/24 03:15 02:23 01:07 WBC RBC Hgb Hct MCV MCH MCHC RDW Plt Count MPV Neut % (Auto) Lymph % (Auto) [place] % (Auto) Eos % (Auto) Baso % (Auto) Neut # (Auto) Lymph # (Auto) [place] # (Auto) Eos # (Auto) Baso # (Auto) Total Counted Neutrophils % (Manual) Lymphocytes % (Manual) Monocytes % (Manual) Nucleated RBCs Platelet Estimate Stomatocytes D-Dimer VBG pH VBG pCO2 VBG pO2 VBG HCO3 VBG Total CO2 VBG O2 Saturation VBG Base Excess VBG Lactic Acid Sodium Potassium Chloride Carbon Dioxide Anion Gap BUN Creatinine Estimated Creat Clear Estimated GFR Est GFR ( Amer) Glucose POC Glucose Lactate Calcium Magnesium Total Bilirubin AST ALT Alkaline Phosphatase Troponin I < 0.01 NT-Pro-B Natriuret Pep Total Protein Albumin Globulin Albumin/Globulin Ratio Lipase Urine Color Yellow Urine Appearance Cloudy Urine pH 5.5 Ur Specific [place] 1.020 Urine Protein Negative Urine Glucose (UA) 3+ Urine Ketones Trace Urine Blood 1+ Urine Nitrate Negative Urine Bilirubin Negative Urine Urobilinogen 0.2 Ur Leukocyte Esterase Negative Urine RBC None Urine WBC 10-20 Ur Squamous Epith Cells 10-20 Amorphous Sediment 1+ Urine Bacteria 3+ SARS-CoV-2 (PCR) Not detected Influenza A Untype (PCR) Not detected Influenza Type B (PCR) Not detected 02/22/24 02/22/24 00:57 00:51 WBC 20.1 H* RBC 4.44 Hgb 13.4 Hct 42.4 MCV 95.6 MCH 30.1 MCHC 31.5 L RDW 14.1 Plt Count 272 MPV 8.4 Neut % (Auto) 73.2 Lymph % (Auto) 21.4 [place] % (Auto) 4.4 Eos % (Auto) 0.3 Baso % (Auto) 0.7 Neut # (Auto) 14.7 H Lymph # (Auto) 4.3 [place] # (Auto) 0.9 Eos # (Auto) 0.1 Baso # (Auto) 0.1 Total Counted 100 Neutrophils % (Manual) 67 Lymphocytes % (Manual) 32 Monocytes % (Manual) 1 L Nucleated RBCs 1 Platelet Estimate Normal Stomatocytes 1+ D-Dimer 0.65 H VBG pH 7.35 VBG pCO2 53.4 H VBG pO2 52.2 H VBG HCO3 28.8 VBG Total CO2 30.4 H VBG O2 Saturation 86.2 H VBG Base Excess 3.1 H VBG Lactic Acid 2.5 H Sodium 139 Potassium 3.8 Chloride 96 L Carbon Dioxide 34 H Anion Gap 12.8 BUN 23 H Creatinine 1.00 Estimated Creat Clear 55 Estimated GFR 54 L Est GFR ( Amer) 65 Glucose 238 H POC Glucose Lactate Calcium 9.5 Magnesium Total Bilirubin 0.5 AST 35 ALT 25 Alkaline Phosphatase 68 Troponin I < 0.01 NT-Pro-B Natriuret Pep 88.6 Total Protein 7.2 Albumin 4.2 Globulin 3.0 Albumin/Globulin Ratio 1.4 Lipase 107 Urine Color Urine Appearance Urine pH Ur Specific [place] Urine Protein Urine Glucose (UA) Urine Ketones Urine Blood Urine Nitrate Urine Bilirubin Urine Urobilinogen Ur Leukocyte Esterase Urine RBC Urine WBC Ur Squamous Epith Cells Amorphous Sediment Urine Bacteria SARS-CoV-2 (PCR) Influenza A Untype (PCR) Influenza Type B (PCR) DS: Diagnosis Discharge Diagnosis (1) Acute on chronic respiratory failure with hypoxia and hypercapnia: Status: Acute Code(s): J96.21 - Acute and chronic respiratory failure with hypoxia; J96.22 - Acute and chronic respiratory failure with hypercapnia (2) COPD exacerbation: Status: Acute Code(s): J44.1 - Chronic obstructive pulmonary disease with (acute) exacerbation (3) Dyspnea on exertion: Status: Acute Code(s): R06.09 - Other forms of dyspnea (4) REAGAN (obstructive sleep apnea): Status: Chronic Code(s): G47.33 - Obstructive sleep apnea (adult) (pediatric) (5) Type 2 diabetes mellitus: Status: Chronic Code(s): E11.9 - Type 2 diabetes mellitus without complications Qualifiers: Diabetes mellitus skilled nursing insulin use: without skilled nursing use Diabetes mellitus complication status: without complication Qualified Code(s): E11.9 - Type 2 diabetes mellitus without complications (6) Hypothyroid: Status: Chronic Code(s): E03.9 - Hypothyroidism, unspecified Qualifiers: Hypothyroidism type: acquired Qualified Code(s): E03.9 - Hypothyroidism, unspecified (7) Obesity (BMI 30.0-34.9): Status: Acute Code(s): E66.9 - Obesity, unspecified Meds Home Medications and Allergies Home Medications Medication Instructions Recorded Confirmed Type blood sugar diagnostic (True #10 ea 03/21/22 02/22/24 History Metrix Glucose Test Strip) lancets 33 gauge (TRUEplus Lancets) #100 ea 03/21/22 02/22/24 History ipratropium bromide 0.02 % 0.5 mg (2.5 mL) inhalation QIDP 03/03/23 02/22/24 Rx solution for inhalation PRN Dyspnea 30 days #300 mL levalbuterol HCl 0.63 mg/3 mL 0.63 mg (3 mL) inhalation QIDP PRN 03/03/23 02/22/24 Rx solution for nebulization Dyspnea 30 days #360 mL lisinopril 10 1 tab PO DAILY Hypertension 90 11/21/23 02/22/24 Rx mg-hydrochlorothiazide 12.5 mg days #90 tabs tablet metformin 500 mg tablet 500 mg PO BID Diabetes 90 days 11/21/23 02/22/24 Rx #180 tabs metoprolol succinate 25 mg 12.5 mg (1/2 x 25 mg) PO DAILY 90 11/21/23 02/22/24 Rx tablet,extended release 24 hr days #45 tabs budesonide 160 mcg-glycopyr 9 2 inh inhalation BIDRT 02/22/24 02/22/24 History mcg-formot 4.8 mcg/actuation HFA inhaler (Breztri Aerosphere) dapagliflozin propanediol 10 mg 10 mg PO DAILY 02/22/24 02/22/24 History tablet (Farxiga) doxycycline hyclate 100 mg tablet 100 mg PO BID 7 days #14 tabs 02/22/24 Rx ipratropium 0.5 mg-albuterol 3 mg 3 ml inhalation Q6RT 30 days #120 02/22/24 Rx (2.5 mg base)/3 mL nebulization mL soln levalbuterol HCl 0.63 mg/3 mL 0.63 mg (3 mL) inhalation QIDP PRN 02/22/24 Rx solution for nebulization Dyspnea 30 days #120 mL levothyroxine 88 mcg tablet 88 mcg PO DAILYDM 02/22/24 02/22/24 History nicotine 21 mg/24 hr daily 21 mg transdermal DAILYP PRN 02/22/24 Rx transdermal patch Nicotine Cravings 30 days #30 ea pantoprazole 40 mg tablet,delayed 40 mg PO DAILY 14 days #14 tabs 02/22/24 Rx release New Prescriptions to Start Prescriptions: doxycycline hyclate Braulio,Irfan ipratropium-albuterol Braulio,Irfan levalbuterol HCl Braulio,Irfan nicotine Braulio,Irfan pantoprazole Braulio,Irfan Allergies Allergy/AdvReac Type Severity Reaction Status Date / Time [id number] Reductase AdvReac myalgias Verified 06/27/23 14:50 Inhibitor Discharge Plan Disposition Patient Disposition: Home, Self-Care Condition: Good Follow up Plan Follow up with: Toribio Barger MD [Primary Care Provider] - 1 week (please call for appointment) Yolanda Morillo MD [Physician] - 1 week Prescriptions/Medication Reconciliation: New ipratropium-albuterol 0.5 mg-3 mg(2.5 mg base)/3 mL Solution For Nebulization 3 ml inhalation Q6RT 30 Days Qty: 120 0RF levalbuterol HCl 0.63 mg/3 mL Solution For Nebulization 0.63 mg inhalation QIDP PRN (Reason: Dyspnea) 30 Days Qty: 120 0RF pantoprazole 40 mg Tablet,Delayed Release (Dr/Ec) 40 mg PO DAILY 14 Days Qty: 14 0RF nicotine 21 mg/24 hr Patch 24 Hour 21 mg transdermal DAILYP PRN (Reason: Nicotine Cravings) 30 Days Qty: 30 0RF doxycycline hyclate 100 mg tablet 100 mg PO BID 7 Days Qty: 14 0RF Continued (DME) lancets [TRUEplus Lancets] 33 gauge misc See Rx Instructions .ROUTE .MEDSUPPLY Qty: 100 Rx Instructions: As directed (DME) True Metrix Glucose Test Strip Strip See Rx Instructions .ROUTE .MEDSUPPLY Qty: 10 Rx Instructions: As directed metoprolol succinate 25 mg tablet extended release 24 hr 12.5 mg PO DAILY 90 Days Qty: 45 0RF lisinopril-hydrochlorothiazide 10-12.5 mg tablet 1 tab PO DAILY 90 Days Qty: 90 0RF metformin 500 mg tablet 500 mg PO BID 90 Days Qty: 180 0RF levothyroxine 88 mcg tablet 88 mcg PO DAILYDM dapagliflozin propanediol [Farxiga] 10 mg tablet 10 mg PO DAILY Breztri Aerosphere 160-9-4.8 mcg/actuation HFA aerosol inhaler 2 inh inhalation BIDRT levalbuterol HCl 0.63 mg/3 mL Solution For Nebulization 0.63 mg inhalation QIDP PRN (Reason: Dyspnea) 30 Days Qty: 360 0RF ipratropium bromide 0.02 % Solution 0.5 mg inhalation QIDP PRN (Reason: Dyspnea) 30 Days Qty: 300 0RF Problem Reconciliation Problems Reviewed?: Yes Patient Discharge Instructions ACTIVITY: Ambulate as tolerated DIET: continue same diet Patient Instructions: Chronic Obstructive Pulmonary Disease, Respiratory Failure Providers Primary Care Provider: Toribio Barger Admit Provider: Linus Ramsey Attending Provider: Linus Ramsey
--- NOTE | 2024-02-23 11:41 | CARE MANAGER ---
Contacted patient related to hospital discharge dishcarge. She states she is doing better. She picked up her medication and is going to schedule her follow up appointments today. Denies questions or concerns. ROCK Reynolds
== END 2024-02-22 13:29 | disposition home or self-care (01) ==
LOC: ER 02:58 → 2ND 03:03
PROVIDERS: Nurse Practitioner Family; Admitting Provider Internal Medicine; Emergency Provider Emergency Medicine; PCP Family Medicine; Visit Provider Internal Medicine
DX: J96.21 Acute and chronic respiratory failure with hypoxia (principal); J96.22 Acute and chronic respiratory failure with hypercapnia; J44.1 Chronic obstructive pulmonary disease with (acute) exacerbation; R06.02 Shortness of breath; G47.33 Obstructive sleep apnea (adult) (pediatric); E11.9 Type 2 diabetes mellitus without complications; E03.9 Hypothyroidism, unspecified; E66.9 Obesity, unspecified; Z99.81 Dependence on supplemental oxygen; Z68.32 Body mass index [BMI] 32.0-32.9, adult; Z79.899 Other long term (current) drug therapy; Z79.84 Long term (current) use of oral hypoglycemic drugs
CPT/HCPCS: 36415; 71045; 80053; 81001; 82803; 82962; 83605; 83690; 83735; 83880; 84484; 85007; 85025; 85378; 87040; 87086; 87088; 87186; 87636; 93005; 94640; 99285; G0378

== ENCOUNTER 2024-03-02 09:30 | Outpatient (CLI) | payer MEDICARE, SELFPAY ==
[2024-03-02 16:30] LABS: Basophils # 0.1 K/mm3 (0-0.2); Basophils % 0.8 % (0.1-2.0); Eosinophils # 0.2 K/mm3 (0.0-0.4); Eosinophils % 1.8 % (0.1-12.0); Hematocrit 41.4 % (37.0-47.0); Hemoglobin 13.1 g/dL (12.2-16.2); Lymphocytes # 3.2 K/mm3 (0.7-4.5); Lymphocytes % 36.3 % (10-50); Mean Corpuscular HGB Conc 31.7 g/dL (31.8-35.4); Mean Corpuscular Hemoglobin 30.3 pg (27.0-31.2); Mean Corpuscular Volume 95.7 fl (81-99); Mean Platelet Volume 9.2 fl (7.4-10.4); Monocytes # 0.5 K/mm3 (0.1-1.0); Monocytes % 5.4 % (1.7-9.3); Neutrophils # 4.8 K/mm3 (1.8-7.8); Neutrophils % 55.6 % (37.0-80.0); Platelet Count 270 K/mm3 (142-424); Red Blood Count 4.32 M/mm3 (4.20-5.40); Red Cell Distribution Width 13.8 % (11.5-17.5); White Blood Count 8.7 K/mm3 (4.8-10.8)
[2024-03-02 17:02] LABS: Hemoglobin A1C 8.6 % (4.0-6.0)
[2024-03-02 17:26] LABS: Chloride 101 mmol/L (98-107)
[2024-03-02 17:27] LABS: Potassium 4.6 mmoL/L (3.5-5.1); Sodium 139 mmol/L (136-145)
[2024-03-02 17:29] LABS: Alanine Aminotransferase 17 U/L (12-78); Albumin Level 3.7 g/dl (3.5-5.0); Albumin/Globulin Ratio 1.4 (1.1-1.8); Alkaline Phosphatase 72 U/L (38-126); Anion Gap 8.6 mEq/L (5-15); Aspartate Amino Transferase 21 U/L (14-36); Bilirubin,Total 0.2 mg/dl (0.2-1.3); Blood Urea Nitrogen 16 mg/dl (7-17); Calcium 9.9 mg/dl (8.4-10.2); Carbon Dioxide 34 mmol/L (22.0-30.0); Estimated Glomerular Filt Rate 81 ml/min (>60); GFR (African American) 98 ML/MIN (>60); Globulin 2.6 g/dL (1.3-3.2); Glucose 180 mg/dl (74-100); Total Protein,Serum 6.3 g/dl (6.3-8.2)
[2024-03-02 17:57] LABS: Thyroid Stimulating Hormone 2.31 uIU/mL (0.465-4.68)
== END 2024-03-02 23:59 | disposition home or self-care (01) ==
LOC: LAB.DROPOF 03-03 09:30
PROVIDERS: PCP Family Medicine; Visit Provider Family Medicine
DX: E03.9 Hypothyroidism, unspecified (principal); I10 Essential (primary) hypertension; E11.9 Type 2 diabetes mellitus without complications; Z79.84 Long term (current) use of oral hypoglycemic drugs; Z87.891 Personal history of nicotine dependence
CPT/HCPCS: 80050; 80053; 83036; 84443; 85025

== ENCOUNTER 2024-09-19 22:39 | Observation (INO) | payer MEDICARE, SELFPAY ==
[2024-09-19 22:48] VITALS: BP 162/74; PULSE 90; RESP 20; TEMP 36.9; O2SAT 96; BMI 32.9
--- NOTE | 2024-09-19 23:02 | PC.NURSE ---
Pt awake alert and oriented x3 Skin pink warm and dry Speech clear and appropriate. O2 increased to 4lpm due to low Sao2. Report given to Billie WILKERSON
--- NOTE | 2024-09-19 23:17 | XR_ITS ---
PROCEDURE INFORMATION: Exam: XR Chest Exam date and time: 09/19/2024 11:15 PM Age: 78 years old Clinical indication: Condition or disease; Lung condition and disease; Copd; Cough and shortness of breath; Additional info: SOA cough copd TECHNIQUE: Imaging protocol: Radiologic exam of the chest. Views: 2 views. COMPARISON: CR XR CHEST PORTABLE 02/22/2024 1:03 AM FINDINGS: Lungs: Bibasilar opacities may reflect a combination of effusion and consolidation. Pleural spaces: No large effusion or pneumothorax. Heart/Mediastinum: Stable cardiac and mediastinal contours. Vasculature: There are calcifications of the aortic arch. Bones/joints: There is exaggeration of the spinal curvature. IMPRESSION: Bibasilar opacities may reflect a combination of effusion and consolidation.
[2024-09-19 23:27] LABS: Basophils % 0.5 % (0.1-2.0); Eosinophils # 0.2 K/mm3 (0.0-0.4); Hematocrit 38.1 % (37.0-47.0); Lymphocytes # 2.1 K/mm3 (0.7-4.5); Mean Corpuscular HGB Conc 31.5 g/dL (31.8-35.4); Mean Corpuscular Hemoglobin 29.3 pg (27.0-31.2); Mean Corpuscular Volume 92.9 fl (81-99); Mean Platelet Volume 10.5 fl (7.4-10.4); Monocytes # 0.8 K/mm3 (0.1-1.0); Monocytes % 9.7 % (1.7-9.3); Neutrophils # 4.9 K/mm3 (1.8-7.8); Neutrophils % 61.4 % (37.0-80.0); Platelet Count 215 K/mm3 (142-424); Red Cell Distribution Width 12.6 % (11.5-17.5); White Blood Count 7.9 K/mm3 (4.8-10.8)
[2024-09-19 23:29] LABS: Albumin Level 3.9 g/dl (3.5-5.0); Chloride 97 mmol/L (98-107)
[2024-09-19 23:30] LABS: Sodium 138 mmol/L (136-145)
[2024-09-19 23:32] LABS: Alanine Aminotransferase 18 U/L (12-78); Albumin/Globulin Ratio 1.4 (1.1-1.8); Alkaline Phosphatase 77 U/L (38-126); Aspartate Amino Transferase 26 U/L (14-36); Bilirubin,Total 0.5 mg/dl (0.2-1.3); Blood Urea Nitrogen 16 mg/dl (7-17); Carbon Dioxide 35 mmol/L (22.0-30.0); Creatinine Clearance Estimated 60 mL/min (50-200); Estimated Glomerular Filt Rate 69 ml/min (>60); GFR (African American) 84 ML/MIN (>60); Globulin 2.7 g/dL (1.3-3.2); Total Protein,Serum 6.6 g/dl (6.3-8.2)
--- NOTE | 2024-09-19 23:32 | ED_ITS ---
Discharge Plan Disposition Patient Disposition: Admitted Prescriptions Prescriptions: No Action (DME) lancets [TRUEplus Lancets] 33 gauge misc See Rx Instructions .ROUTE .MEDSUPPLY Qty: 100 Rx Instructions: As directed (DME) True Metrix Glucose Test Strip Strip See Rx Instructions .ROUTE .MEDSUPPLY Qty: 10 Rx Instructions: As directed albuterol sulfate 90 mcg/actuation HFA aerosol inhaler 2 puff inhalation Q6H PRN (Reason: shortness of breath or wheezing) Qty: 8.5 0RF escitalopram oxalate 5 mg tablet See Rx Instructions .ROUTE .COMPLEX Qty: 90 3RF Dose Instruction: TAKE 1 TABLET EVERY DAY Rx Instructions: TAKE 1 TABLET EVERY DAY furosemide 40 mg tablet 40 mg PO DAILY PRN (Reason: edema) 30 Days Qty: 30 2RF levothyroxine 88 mcg tablet 88 mcg PO DAILYDM 90 Days Qty: 90 0RF Breztri Aerosphere 160-9-4.8 mcg/actuation HFA aerosol inhaler 2 inh inhalation BIDRT 90 Days Qty: 10.7 3RF dapagliflozin propanediol [Farxiga] 10 mg tablet 10 mg PO DAILY 90 Days Qty: 90 0RF lisinopril-hydrochlorothiazide 10-12.5 mg tablet 1 tab PO DAILY 90 Days Qty: 90 0RF metformin 500 mg tablet 1,000 mg PO BID 90 Days Qty: 360 0RF metoprolol succinate 25 mg tablet extended release 24 hr 12.5 mg PO DAILY 90 Days Qty: 45 0RF Referrals Follow up/Referrals: Toribio Baregr MD [Primary Care Provider] - See instructions Clinical Impressions Clinical Impression: Pleural effusion, Pneumonia Print Language Print Language: Croatian Discharge ED Provider: Ross Lopez General Adult HPI General Chief complaint: Upper Respiratory Infection Stated complaint: SOA, weak Time Seen by Provider: 09/19/24 22:59 Mode of Arrival: Wheelchair Source of Information: Patient Limitations: No Limitations Description of Symptoms (Recalled from ER Triage Doc. by RN): Pt states she has had worsening shortness of breath this week now unable to walk more than a few steps Normally wears O2 3lpm nasal cannula History of Present Illness HPI narrative: 78-year-old female with history of COPD typically wears 3 L nasal cannula at home presents to the ER with concerns of cough, deep chest congestion, cough is productive but patient is reporting being afebrile. She states she has had generalized weakness and malaise for multiple days but last 2 days her breathing has significantly worsened despite taking all of her home medications as prescribed. Patient reports she had increased her nasal cannula at home due to shortness of breath. Her granddaughter evaluated her and was concerned for pneumonia and encouraged her to come to the ER. Patient reports no new chest pain, headache, dizziness, numbness, tingling, weakness. She does take a fluid pill at baseline and combination with her antihypertensive medications. She reports no abdominal pain, nausea, vomiting, diarrhea, or other associated symptoms. Related Data Home Medications ?Medication ?Instructions ?Recorded ?Confirmed blood sugar diagnostic (True #10 ea 03/21/22 02/22/24 Metrix Glucose Test Strip) lancets 33 gauge (TRUEplus Lancets) #100 ea 03/21/22 02/22/24 Previous Rx's ?Medication ?Instructions ?Recorded albuterol sulfate 90 mcg/actuation 2 puff inhalation Q6H PRN 03/03/24 aerosol inhaler shortness of breath or wheezing #8.5 grams escitalopram oxalate 5 mg tablet See Rx Instructions .Route 06/04/24 .COMPLEX #90 tabs furosemide 40 mg tablet 40 mg PO DAILY PRN edema 30 days 07/16/24 #30 tabs budesonide 160 mcg-glycopyr 9 2 inh inhalation BIDRT 90 days 09/07/24 mcg-formot 4.8 mcg/actuation HFA #10.7 grams inhaler (Breztri Aerosphere) dapagliflozin propanediol 10 mg 10 mg PO DAILY 90 days #90 tabs 09/07/24 tablet (Farxiga) levothyroxine 88 mcg tablet 88 mcg PO DAILYDM 90 days #90 tabs 09/07/24 lisinopril 10 1 tab PO DAILY Hypertension 90 09/07/24 mg-hydrochlorothiazide 12.5 mg days #90 tabs tablet metformin 500 mg tablet 1,000 mg (2 x 500 mg) PO BID 09/07/24 Diabetes 90 days #360 tabs metoprolol succinate 25 mg 12.5 mg (1/2 x 25 mg) PO DAILY 90 09/07/24 tablet,extended release 24 hr days #45 tabs Allergies Allergy/AdvReac Type Severity Reaction Status Date / Time [id number] Reductase AdvReac myalgias Verified 07/14/24 15:13 Inhibitor PFSH PFS Disclaimer: The information contained in this section may have been updated after the patient was seen, as this information can be updated by other users. Medical History Kidney stone History of smoking 30 or more pack years History of COPD Chronic respiratory failure with hypoxia Dyspnea on exertion Pneumonia Acute and chronic respiratory failure with hypoxia COPD exacerbation Sinusitis Depression Obesity (BMI 30.0-34.9) REAGAN (obstructive sleep apnea) Hypothyroid Type 2 diabetes mellitus COPD exacerbation Surgical History H/O lithotripsy Family History Father Heart attack Hypertension Sister Heart attack Brother Hypertension Social History Smoking Status: Never smoker alcohol intake: never substance use type: denies use current occupational status: retired Travel in the last 8 weeks: None household members: none housing: house current occupational exposures/hazards: No caffeine: Yes Have you lived/traveled outside [place] in past 30 days?: No Contact w/someone who lives/traveled outside [place] past 30 days?: No Exposure to someone with infectious disease in past 14 days?: No Do you have a fever (greater than 100.4 F or 38 C)?: No Have you tested positive for COVID-19: No Exposed to someone with COVID-19 in past 14 days?: No Do you have a sore throat?: No Do you have a cough?: No Do you have any weakness?: No Do you have any diarrhea?: No Are you experiencing any unusual bleeding?: No Do you have any muscle aches/pain?: No Do you have any abdominal pain?: No Are you experiencing loss of taste or smell?: No Other Medical History Have you received the Flu Vaccine for this season: No Have you received the Pneumonia Vaccine: Yes ROS Obtained: Yes Systems reviewed as appropriate & no additional complaints except as documented Per HPI Physical Exam General General appearance: alert and in no apparent distress Head Head exam: atraumatic and normocephalic Eye Eye exam: Present PERRL and EOMI ENT ENT exam: Present mucous membranes moist Neck Neck exam: Present normal inspection and full ROM Chest Chest inspection: Present symmetric chest wall rise Respiratory Respiratory exam: Present normal lung sounds bilaterally (Significantly diminished breath sounds throughout, likely rales at bilateral lung bases however with patient significantly diminished breath sounds, difficult to auscultate) and wheezes (Diffuse wheezing, significantly diminished breath sounds throughout); Absent respiratory distress or stridor Cardiovascular Cardiovascular exam: Present regular rate and normal rhythm Abdominal Exam Abdominal exam: Present soft; Absent distention, tenderness, guarding or rebound Extremities Exam Extremities exam: Present full ROM and edema (+2 bilateral lower extremity pitting edema) Neurological Exam Neurological exam: Present alert, oriented X3 and CN II-XII intact; Absent motor sensory deficit Psychiatric Psychiatric exam: Present normal affect and normal mood Skin Skin exam: Present warm and dry Medical Decision Making Medical Records Medical records reviewed: Yes I reviewed the patient's medical records. Screening: Per USPSTF and CDC recommendations, given the prevalence of disease in our region, it is our hospital?s policy to screen for HIV and viral Hepatitis for all patients aged 18 and over and those with ongoing risk factors. MR Comment: Most recent office visit with Dr. Barger demonstrates patient was having shortness of breath with any exertion and reportedly was having bodyaches on Breztri. A1c was 8.4. She still wished to pursue diet and metformin. Concern from PCP for additional fluid retention and placed on 40 Lasix as needed. Leandro Inquiry Pt receiving controlled substance: No Vital Signs: 09/19/24 22:48 Temperature 98.4 F Temperature Source Oral Pulse Rate [Right Brachial] 90 Respiratory Rate 20 Blood Pressure [Right Arm] 162/74 H Blood Pressure Mean [Right Arm] 103 Blood Pressure Source [Right Arm] Automatic Cuff Blood Pressure Position [Right Arm] Sitting 02 Sat by Pulse Oximetry 96 Oxygen Delivery Method Nasal Cannula Oxygen Flow Rate (LPM) 4 Lab Data Lab Results 09/19/24 23:07: WBC 7.9, RBC 4.10 L, Hgb 12.0 L, Hct 38.1, MCV 92.9, MCH 29.3, M CHC 31.5 L, RDW 12.6, Plt Count 215, MPV 10.5 H, Neut % (Auto) 61.4, Lymph % (Auto) 26.0, [place] % (Auto) 9.7 H, Eos % (Auto) 2.0, Baso % (Auto) 0.5, Neut # (Auto) 4.9, Lymph # (Auto) 2.1, [place] # (Auto) 0.8, Eos # (Auto) 0.2, Baso # (Auto) 0.0, Sodium 138, Potassium 4.0, Chloride 97 L, Carbon Dioxide 35 H, Anion Gap 10.0, BUN 16, Creatinine 0.80, Estimated Creat Clear 60, Estimated GFR 69, Est GFR ( Amer) 84, Glucose 253 H, Lactate 1.0, Calcium 9.2, Total Bilirubin 0.5, AST 26, ALT 18, Alkaline Phosphatase 77, Troponin I < 0.01, NT-Pro-B Natriuret Pep 63.9, Total Protein 6.6, Albumin 3.9, Globulin 2.7, Albumin/Globulin Ratio 1.4 09/19/24 23:17: VBG pH 7.34, VBG pCO2 53.2 H, VBG pO2 56.6 H, VBG HCO3 28.3, VBG Total CO2 30.0 H, VBG O2 Saturation 87.7 H, VBG Base Excess 2.6 H, VBG Lactic Acid 1.7 09/19/24 23:07 09/19/24 23:07 Orders (Tests/Meds): ED MEDICATIONS Discontinued Medications Generic Name Dose Route Start Last Admin Trade Name Nick PRN Reason Stop Dose Admin Albuterol/Ipratropium 9 ml 09/19/24 23:17 09/19/24 23:54 Ipratropium/Albuterol 3 Ml Neb 09/19/24 23:18 9 ml ONCE ONE Administration Furosemide 40 mg 09/19/24 23:54 09/20/24 00:41 Furosemide 40mg/4ml Vial IV 09/19/24 23:55 40 mg ONCE ONE Administration Doxycycline Hyclate 100 mg/ 250 mls @ 166.667 mls/hr 09/20/24 00:38 09/20/24 01:00 Sodium Chloride IV 09/20/24 00:39 166.667 mls/hr ONCE ONE Administration Methylprednisolone Sodium Succinate 125 mg 09/19/24 23:54 09/20/24 00:40 Methylprednisolone Sod Succ 125mg Vial IV 09/19/24 23:55 125 mg ONCE ONE Administration ORDERS Category Date Time Status CXR 2 view (NOT portable) [XR chest 2V] Stat Exams 09/19/24 23:17 Completed BNP [NT Pro Brain Natriuretic Pep.] Stat Lab 09/19/24 23:07 Completed CBC w/Auto Diff [Complete Blood Count Auto Diff] Stat Lab 09/19/24 23:07 Completed CMP [Comprehensive Metabolic Panel] Stat Lab 09/19/24 23:07 Completed HIV Combo Stat Lab 09/19/24 23:07 Received Hep C Ab with Reflex to RNA Stat Lab 09/19/24 23:07 Received Lactic Acid Stat Lab 09/19/24 23:07 Completed Mini Respiratory Panel Stat Lab 09/19/24 23:45 Received Trop I [Troponin I] Stat Lab 09/19/24 23:07 Completed Troponin I Q3H Lab 09/20/24 02:30 Ordered Troponin I Q3H Lab 09/20/24 05:30 Ordered Urinalysis and Microscopic Stat Lab 09/19/24 23:17 Ordered Blood Culture Stat Micro 09/20/24 00:54 Ordered VBG [Venous Blood Gas] Stat RT 09/19/24 23:17 Completed ECG Request Stat Y 09/19/24 23:17 Ordered HEART Score History (anamnesis): Slightly suspicious ECG: Non-specific disturbance Age: >65 years Risk factors: 3 or more risk factors Troponin: </= normal limit HEART Score: 5 Medical Decision Narrative: In summary, this 78-year-old female with comorbidities described in the HPI presents to the emergency department today with productive cough, generalized malaise, increased oxygen requirement at home. On initial evaluation patient is hemodynamically stable, afebrile, saturating in the mid 90s on 4 L nasal cannula, 2+ pitting edema in bilateral lower extremities, soft, nontender abdomen, oriented, alert, GCS 15. Differential diagnosis includes but is not limited to viral syndrome, pneumonia, COPD exacerbation, hypercarbia, ACS, electrolyte abnormality, dehydration, among others. Based on these concerns, I ordered serum labs, VBG, chest x-ray, viral swab. ECG personally interpreted demonstrates normal sinus rhythm, rate 92, normal axis, normal VA and QTc, ST depressions in lead II, 3, aVF but no STEMI. ECG appears similar to ECGs performed in February which I reviewed. Patient received DuoNebs initially for treatment. Labs personally reviewed demonstrate VBG with pH 7.34, mild hypercarbia with pCO2 53.2, similar to patient's pCO2 in February, VBG lactic 1.7. CBC with no leukocytosis, mild anemia with hemoglobin 12.0, normal platelets, CMP demonstrates hyperglycemia but no acutely actionable abnormalities since patient does not demonstrate findings of DKA such as a metabolic acidosis. BNP normal, decreased from previous visits, initial troponin undetectably low at less than 0.01 reassuring in the setting of patient's duration of symptoms and reassuring ECG, I do not believe serial troponins are indicated at this time. Chest x-ray personally interpreted demonstrates pulmonary edema and small pleural effusions at the bilateral lung bases. Possible consolidation as well. See radiology read for final interpretation which is in agreement. On reassessment patient has had some improvement of her symptoms. She ambulated in the ER and maintain saturation just above 90% however when she got back to bed she was very short of breath and felt weak. Her labs are overall somewhat reassuring however her clinical picture is concerning for significant fluid overload as is her chest x-ray. She is receiving IV Lasix as well as Solu- Medrol and doxycycline for treatment of pleural effusion, COPD, pneumonia respectively. I had shared decision-making discussion with the patient and family at bedside since her clinical picture is worse than her labs. I recommended admission but also discussed the option of being discharged. After discussion with patient and family, due to patient needing to get up and down frequently overnight to use the restroom due to the IV Lasix with her cough, and shortness of breath and increased work of breathing, she and family are worried that she will not be safe at home with recurrent trips to the bathroom. I believe it is very reasonable for this patient to be admitted at this time for further management of fluid overload, shortness of breath. I discussed this case with the hospitalist and after evaluating the patient he agrees with the plan for admission. Patient admitted in stable condition. Critical Care Critical Care Time Critical Care Time: No
[2024-09-19 23:33] LABS: Calcium 9.2 mg/dl (8.4-10.2); Glucose 253 mg/dl (74-100)
--- NOTE | 2024-09-19 23:37 | ECG_ITS ---
APPROVED REPORT Exam: Resting ECG HR:92 bpm ECG Measurements Heart Rate 92 AXES OH 179 P 89 QRSd 105 QRS 78 QT 356 T 62 QTc 405 Conclusion SINUS RHYTHM MODERATE T-WAVE ABNORMALITY, CONSIDER INFERIOR ISCHEMIA [-0.1+ mV T-WAVE IN II/aVF] ST depressions in inferior leads are stable from prior, no STEMI Electronically signed by : JANY KERN, 09/20/2024 02:52:50
[2024-09-19 23:42] LABS: NT Pro Brain Natriuretic Pep. 63.9 pg/mL (0-450)
[2024-09-19 23:45] LABS: Troponin I < 0.01 ng/ml (0.00-0.034)
[2024-09-19 23:46] LABS: Lactate Venous 1.7 mmol/L (0.4-2.0); VBG Base Excess 2.6 mmol/L (-2.4-2.3); VBG HCO3 28.3 mmol/L (23-30); VBG Oxygen Saturation 87.7 % (50-70); VBG PH 7.34 mmol/L (7.31-7.41); VBG PO2 56.6 mmol/L (28-40)
[2024-09-19 23:48] LABS: VBG PCO2 53.2 mmol/L (35-51)
[2024-09-19 23:53] LABS: Coronavirus 19, PCR Not Detected (NotDetected); Human Rhinovirus Not Detected (NotDetected); Influenza A, PCR Not Detected (NotDetected); Influenza B, PCR Not Detected (NotDetected); Respiratory Syncytial Virus Not Detected (NotDetected)
[2024-09-19] MEDS: IPRATROPIUM/ALBUTEROL 3 ML NEB 9 ML IH (23:54)
[2024-09-19 23:55] VITALS: PULSE 96; PULSE 99
[2024-09-20] MEDS: METHYLPREDNISOLONE SOD SUCC 125MG VIAL 125 MG IV (00:40)
[2024-09-20] MEDS: FUROSEMIDE 40MG/4ML VIAL 40 MG IV (00:41)
[2024-09-20] MEDS: DOXYCYCLINE HYCLATE 100 MG in 0.9 % SODIUM CHLORIDE 250 ML 166.667 MG IV (01:00)
[2024-09-20 01:08] VITALS: BP 130/73; PULSE 105; RESP 20; O2SAT 96
[2024-09-20 01:21] LABS: Microscopic, Urine URINE MICROSCOPIC (MICROSCOPIC)
[2024-09-20 01:22] LABS: Appearance,Urine CLEAR (Clear); Bilirubin,Urine Negative (Negative); Blood, Urine TRACE-L (Negative); Color,Urine YELLOW (Yellow); Glucose,Urine (UA) 3+ (Negative); Ketones,Urine 1+ (Negative); Leukocyte Esterase,Urine Negative (Negative); Nitrate,Urine Negative (Negative); PH,Urine 5.5 (5.0-8.5); Protein,Urine Negative (Negative); Urobilinogen,Urine 0.2 EU/dl (0.2)
[2024-09-20 01:36] LABS: Bacteria,Urine Trace /lpf; WBC,Urine Occasional #/hpf (0-3)
--- NOTE | 2024-09-20 01:42 | PC.NURSE ---
THIS RN OBSERVED WALKING O2 SATURATION OF PATIENT. pT REMAINED ON 3L NC WHICH IS HER BASELINE. SHE MAINTAINED 96% O2 WHILE AMBULATING WITH WALKER. NO OBVIOUS DISTRESS NOTED WHILE DOING SO. PROVIDER MADE AWARE. PT HAS ALSO BEEN GIVEN SANDWICH AND CHIPS WITH PO FLUIDS AFTER PROVIDER ADDED DIET ORDER. PT IN BED, ALERT, DENIES PAIN OR NEW SYMPTOMS. PT IS BOARDING IN ED UNTIL FLOOR BED IS ASSIGNED
[2024-09-20 02:21] LABS: Troponin I < 0.01 ng/ml (0.00-0.034)
[2024-09-20 02:30] LABS: HIV Combo NEGATIVE (Negative)
--- NOTE | 2024-09-20 03:55 | PC.NURSE ---
report received from Billie WILKERSON
[2024-09-20 04:27] VITALS: BP 121/68; PULSE 102; RESP 22; TEMP 36.7; O2SAT 96
[2024-09-20 04:59] VITALS: O2SAT 94
[2024-09-20 05:04] VITALS: BP 121/69; PULSE 101; RESP 19; TEMP 36.8; O2SAT 94
[2024-09-20 05:07] VITALS: BMI 33.1
--- NOTE | 2024-09-20 05:15 | EXP.HP ---
History of Present Illness *Admission Date: 09/20/24 *Reason for visit:: Congestive heart failure with fluid overload severe COPD *History of present illness: This 78-year-old woman who is on home O2 at 3 L normal has progressively become more dyspneic and having edema in her lower extremities this has been occurring for about a week and now is only able to walk for a few steps before completely exhausted. Patient also takes Lasix daily. Main complaint today is generalized weakness and malaise with increased respiratory needs. She states she is taking her home medicines as prescribed. Her past medical history includes smoking for more than 30 years stopped approximately 15 years ago, also has type 2 diabetes and hypothyroidism. The ER provider has called me down.., Patient is doing better after breathing treatments but still on required oxygen that is increased. And just not able to ambulate without being in severe to trace distress. Checking old records patient in 2022 was 177 pounds. But in February 2024 was 1 up to 187 pounds.. She presently is 180 pounds on today's measurement. ER physician is called me down and just feels that the patient is not able to be sent home. And I do agree when the patient is in the bed laying still she actually looks pretty good not breathing very difficult but any type of ambulation at all on her part respiratory rate goes up to closer to 30 and she looks quite distressed. Will go ahead and except for admission to try to do some diuresis, per the chest x-ray showing significant fluid plus or pitting edema in the lower extremities. Question also will need cardiology consult to see if there is been a change in her cardiac function. And old records could not find any source reference to ejection fraction are condition of cardiac muscle or valves. [facility] Disclaimer: The information contained in this section may have been updated after the patient was seen, as this information can be updated by other users. Medical History Kidney stone History of smoking 30 or more pack years History of COPD Chronic respiratory failure with hypoxia Dyspnea on exertion Pneumonia Acute and chronic respiratory failure with hypoxia COPD exacerbation Sinusitis Depression Obesity (BMI 30.0-34.9) REAGAN (obstructive sleep apnea) Hypothyroid Type 2 diabetes mellitus COPD exacerbation Surgical History H/O lithotripsy Family History Father Heart attack Hypertension Sister Heart attack Brother Hypertension Social History (Updated 09/20/24 @ 05:28 by Zelalem Trotter APRN) Smoking Status: Former smoker years smoked: 30 alcohol intake: never substance use type: denies use current occupational status: retired Travel in the last 8 weeks: None household members: none housing: house current occupational exposures/hazards: No caffeine: Yes Other Medical History Have you received the Flu Vaccine for this season: Yes Have you received the Pneumonia Vaccine: Yes Review of Systems Review of Systems Review of systems:: pertinent systems reviewed and negative unless documented below Constitutional Constitutional: Reports as per HPI, Reports lethargy and Reports weakness Comments: Patient while on stretcher is able to talk well showing no signs of distress. Eyes Eyes: Reports as per HPI ENT Ears, Nose, Mouth, and Throat: Reports as per HPI *Cardiovascular Cardiovascular: Reports dyspnea on exertion *Respiratory Respiratory: Reports as per HPI and Reports dyspnea on exertion Comments: Lungs are basically clear when I listen to her she is showing no signs of distress as long as she is laying quietly on the stretcher at 3 L. *Gastrointestinal Gastrointestinal: Reports as per HPI *Genitourinary Genitourinary: Reports as per HPI *Musculoskeletal Musculoskeletal: Reports as per HPI Integumentary/Breasts Skin/Breast: Reports as per HPI *Neurologic Neurologic: Reports as per HPI and Reports weakness Psychiatric Psychiatric: Reports as per HPI Endocrine Endocrine: Reports as per HPI Hematologic/Lymphatic Hematologic/Lymphatic: Reports as per HPI Allergic/Immunologic Allergic/Immunologic: Reports as per HPI Meds Home Medications and Allergies Home Medications ?Medication ?Instructions ?Recorded ?Confirmed ?Type blood sugar diagnostic (True #10 ea 03/21/22 09/20/24 History Metrix Glucose Test Strip) lancets 33 gauge (TRUEplus Lancets) #100 ea 03/21/22 09/20/24 History dapagliflozin propanediol 10 mg 10 mg PO DAILY 90 days #90 tabs 09/07/24 09/20/24 Rx tablet (Farxiga) levothyroxine 88 mcg tablet 88 mcg PO DAILYDM 90 days #90 tabs 09/07/24 09/20/24 Rx lisinopril 10 1 tab PO DAILY Hypertension 90 09/07/24 09/20/24 Rx mg-hydrochlorothiazide 12.5 mg days #90 tabs tablet metformin 500 mg tablet 1,000 mg (2 x 500 mg) PO BID 09/07/24 09/20/24 Rx Diabetes 90 days #360 tabs metoprolol succinate 25 mg 12.5 mg (1/2 x 25 mg) PO DAILY 90 09/07/24 09/20/24 Rx tablet,extended release 24 hr days #45 tabs azithromycin 250 mg tablet 500 mg (2 x 250 mg) PO DAILY 2 09/20/24 Rx days #4 tabs budesonide 160 mcg-glycopyr 9 2 puff inhalation BID Copd 09/20/24 09/20/24 History mcg-formot 4.8 mcg/actuation HFA inhaler (Breztri Aerosphere) furosemide 40 mg tablet 40 mg PO DAILY Edema 30 days #30 09/20/24 Rx tabs prednisone 20 mg tablet 40 mg (2 x 20 mg) PO DAILY 3 days 09/20/24 Rx #6 tabs New Prescriptions to Start Prescriptions: Sergey Garcia furosemide Sergey Taylor prednisone Sergey Taylor Allergies Allergy/AdvReac Type Severity Reaction Status Date / Time [id number]-QCF-NiL Reductase AdvReac myalgias Verified 07/14/24 15:13 Inhibitor Exam Data for Last 24 hours Vital signs and Labs for Last 24 Hours: Temp Pulse Resp BP Pulse Ox O2 Del Method O2 Flow Rate 98.2 F 101 H 19 121/69 94 L Nasal Cannula 3 09/20/24 05:04 09/20/24 05:04 09/20/24 05:04 09/20/24 05:04 09/20/24 05:04 09/20/24 05:05 09/20/24 05:05 Laboratory Results - last 24 hr 09/19/24 23:07: WBC 7.9, RBC 4.10 L, Hgb 12.0 L, Hct 38.1, MCV 92.9, MCH 29.3, MCHC 31.5 L, RDW 12.6, Plt Count 215, MPV 10.5 H, Neut % (Auto) 61.4, Lymph % (Auto) 26.0, Patrick % (Auto) 9.7 H, Eos % (Auto) 2.0, Baso % (Auto) 0.5, Neut # (Auto) 4.9, Lymph # (Auto) 2.1, Patrick # (Auto) 0.8, Eos # (Auto) 0.2, Baso # (Auto) 0.0, Sodium 138, Potassium 4.0, Chloride 97 L, Carbon Dioxide 35 H, Anion Gap 10.0, BUN 16, Creatinine 0.80, Estimated Creat Clear 60, Estimated GFR 69, Est GFR ( Amer) 84, Glucose 253 H, Lactate 1.0, Calcium 9.2, Total Bilirubin 0.5, AST 26, ALT 18, Alkaline Phosphatase 77, Troponin I < 0.01, NT-Pro-B Natriuret Pep 63.9, Total Protein 6.6, Albumin 3.9, Globulin 2.7, Albumin/Globulin Ratio 1.4, HIV Ag/Ab Combo Qual Negative 09/19/24 23:17: VBG pH 7.34, VBG pCO2 53.2 H, VBG pO2 56.6 H, VBG HCO3 28.3, VBG Total CO2 30.0 H, VBG O2 Saturation 87.7 H, VBG Base Excess 2.6 H, VBG Lactic Acid 1.7 09/19/24 23:45: SARS-CoV-2 (PCR) Not detected, Influenza Type A (PCR) Not detected, Influenza Type B (PCR) Not detected, RSV (PCR) Not detected, Rhinovirus (PCR) Not detected 09/20/24 01:10: Urine Color Yellow, Urine Appearance Clear, Urine pH 5.5, Ur Specific [place] 1.020, Urine Protein Negative, Urine Glucose (UA) 3+, Urine Ketones 1+, Urine Blood Trace-l, Urine Nitrate Negative, Urine Bilirubin Negative, Urine Urobilinogen 0.2, Ur Leukocyte Esterase Negative, Urine RBC 3-5, Urine WBC Occasional, Ur Squamous Epith Cells None, Urine Bacteria Trace 09/20/24 01:57: Troponin I < 0.01 I & O for Last 24 hours: Intake & Output 09/17/24 09/18/24 09/19/24 09/20/24 05:59 05:59 05:59 05:59 Weight 180 lb 0.013 oz Radiology Reports for the Last 24 Hours: Chest x-ray shows fluid overload Constitutional Constitutional: moderate distress Comments: Patient is just unable to tolerate getting out of bed walking or even trying to get to the bedside commode *Routine HEENT Exam Head: Present normocephalic and atraumatic Eye: Present EOMI, PERRL and normal accommodation ENT: Present mucous membranes moist Comments: No signs of nasal drainage or upper respiratory infection nasal passages appear to be clear no signs of sinusitis *Routine Neck Exam Neck: Present supple and full ROM Routine Chest/Breast/Axilla Exam Comments: No chest wall injury/pain was found patient is able to take a deep breath without any restriction *Routine Respiratory Exam Respiratory: Present decreased breath sounds, prolonged expiratory phase, distant breath sounds, diminished air movement and able to speak in complete sentences Comments: Is able to speak in complete sentences when lying on the stretcher but not when standing up trying to ambulate *Routine Cardiovascular Exam Cardiovascular: Present RRR, murmur and tachycardia Comments: Mild to moderate murmurs heard both systolic and diastolic *Routine Abdominal Exam Abdominal: Present soft, normoactive bowel sounds and obese Comments: No signs of tenderness found on abdominal exam. No hernias noted *Routine Rectal Exam Rectal:: deferred *Routine Genitalia Exam Genitalia:: deferred *Routine Extremities Exam Extremities: Present edema (2+ pitting edema both lower extremities), full ROM, pulses intact and normal capillary refill (Nailbeds are pink with brisk capillary refill) Routine Back/Spine/Pelvis Exam Back/Spine: Present full ROM Comments: Patient with difficulty is able to arise from the stretcher and stand and take a few steps. She has a walker at home she uses most of the time *Routine Skin Exam Skin: Present intact, dry, warm and normal turgor *Routine Neurological Exam Neurological: Present alert, oriented X3, CN II-XII intact, normal tone, vision grossly intact, hearing grossly intact and normal speech Comments: Exam found no signs of neurovascular deficit Routine Psychiatric Exam Psychiatric: Present normal affect, normal thought process, cooperative, good insight and good judgment Comments: Very nice patient good historian fun to talk with H&P: Result Impressions 1. Chronic COPD with CHF with significant exacerbation of both at this time., Unsure of cause. 2. Decreased oxygen saturation. Imaging and Cardiology Chest x-ray: Status: image reviewed by me Additional comments: fluid over load Assessment and Plan *Assessment and plan (1) CHF (congestive heart failure): Status: Acute Qualifiers: Heart failure chronicity: acute on chronic Heart failure type: combined systolic and diastolic Qualified Code(s): I50.43 - Acute on chronic combined systolic (congestive) and diastolic (congestive) heart failure Category: Medical Code(s): I50.9 - Heart failure, unspecified (2) COPD exacerbation: Status: Acute Category: Medical Code(s): J44.1 - Chronic obstructive pulmonary disease with (acute) exacerbation (3) Acute on chronic respiratory failure with hypoxia and hypercapnia: Status: Acute Category: Medical Code(s): J96.21 - Acute and chronic respiratory failure with hypoxia; J96.22 - Acute and chronic respiratory failure with hypercapnia (4) Dyspnea on exertion: Status: Acute Category: Medical Code(s): R06.09 - Other forms of dyspnea (5) Pleural effusion: Status: Acute Category: Medical Code(s): J90 - Pleural effusion, not elsewhere classified (6) History of smoking 30 or more pack years: Status: Acute Category: Social Hx Code(s): Z87.891 - Personal history of nicotine dependence Plan Concern for dyspnea and swelling, suspect CHF exacerbation. Discussed case with ER physician, request admission for further management including diuresis. Medicine agreed to admit. Problems addressed as follows: 1. For this respiratory failure and congestive heart failure will continue diuretics and antibiotics., Pulmonary toileting with DuoNebs. Trying to get patient to be comfortable back on her baseline of 3 L nasal, and being able to ambulate independently in her own home.. Present regime of diuretics seems to be working well patient is improving.. Also to evaluate home meds to see if any needs to be adjusted 2. Going back through patient's records he has been admitted for something like this before. But there was no workup noted by cardiology. Audiology consult has been placed in. Also will need an echocardiogram that will be ordered today to. 3. At this point in time the patient has not had any falls or really any decrease in her musculoskeletal ability. So I do feel that we can get her fluid level back to normal get the lungs a little more clear she will get back to her baseline and be able to return home to her previous level of self-care Rounded on patient after nurse practitioner. Personally examined and interviewed patient. Agree with exam findings and care plan as documented. Per my review of chest x-ray, has effusions bilaterally with flattening of diaphragm. Clinically appears volume overloaded.
--- NOTE | 2024-09-20 05:44 | CA_ITS ---
APPROVED REPORT EXAM: Comprehensive 2D, Doppler, and color-flow Echocardiogram Catering Manager: Jasmin Jackson CRT Ht: 5 ft 1 in Wt: 180lbs BSA: 1.81 BP: 121/69 mmHg Indications: Congestive Heart Failure, COPD, Shortness of Breath, Diabetes, Hypertension/HDD, home O2, REAGAN, pleural effusion 2D Dimensions LA Volume 26.00 mL LA Volume Index 14.10 mL/m2 (M/F) 16-34 M-Mode Dimensions RVDd 3.23 cm (0.9-2.6) LA Diam 2.67 cm (1.9-4.0) LVDd 3.61 cm (3.5-5.7) LVDs 1.94 cm (3.5-5.7) IVSd 1.33 cm (0.6-1.1) PWd 0.87 cm (0.6-1.1) EF (Teich) 78.50% FS 46.30% EDV (Teich) 54.80 mL ESV (Teich) 11.80 mL LV Diastology E Decel Time 150 (160-240 msec) E/A Ratio 0.55 MED A' 13.20 cm/s LAT A' 13.00 cm/s Aortic Valve AO Peak GR. 7.20 mmHg Mitral Valve MV E Max Arun. 61.0 (40-130 cm/s) MV A Velocity 110.0 (40-130 cm/s) E/A Ratio 0.55 MV PHT 44.0 ms Tricuspid Valve TR P. Velocity 136.00 cm/s RAP Estimate 10.00 mmHg RVSP 17.40 mmHg Left Ventricle The left ventricle is normal size. The left ventricular systolic function is normal. The left ventricular ejection fraction is within the normal range. There is increased LV wall thickness. There is normal LV segmental wall motion. Diastolic function is indeterminate. LVEF is 55%. Right Ventricle Right ventricle is mildly dilated. The right ventricular systolic function is normal. Atria The left atrium size is normal. The right atrium size is normal. The interatrial septum is not well visualized. Aortic Valve The aortic valve is mildly thickened. There is no aortic valvular stenosis. Trace aortic regurgitation. Mitral Valve The mitral valve leaflets are mildly thickened. No evidence of mitral valve stenosis. Trace to mild mitral regurgitation. Tricuspid Valve Tricuspid valve is grossly normal in structure and function. Trace tricuspid regurgitation. There is insufficient TR jet to estimate RVSP. Pulmonic Valve The pulmonary valve is normal in structure. Trace pulmonic regurgitation. Great Vessels The aortic root is normal in size. IVC is normal in size and collapses >50% with inspiration. Pericardium There is no pericardial effusion. Other Information Study Quality: Fair Conclusion Normal biventricular systolic function. Mild RV dilation. No significant valvular stenosis or regurgitation. Electronically signed by : Stacy Moss MD 09/20/2024 10:44:17
[2024-09-20 06:29] LABS: POC Glucose,Bedside 352 (70-110)
[2024-09-20] MEDS: humaLOG 100 UNITS/ML 10ML VIAL (SSI) SUBCUT ×2 (06:34→12:00)
[2024-09-20] MEDS: CEFTRIAXONE 1 GM 1 GM in 0.9 % SODIUM CHLORIDE 50 ML IV (06:35)
[2024-09-20 07:21] LABS: Basophils % 0.2 % (0.1-2.0); Eosinophils % 0.1 % (0.1-12.0); Hematocrit 36.2 % (37.0-47.0); Hemoglobin 11.6 g/dL (12.2-16.2); Lymphocytes # 0.8 K/mm3 (0.7-4.5); Lymphocytes % 8.7 % (10-50); Mean Corpuscular Hemoglobin 29.7 pg (27.0-31.2); Mean Corpuscular Volume 92.6 fl (81-99); Mean Platelet Volume 10.4 fl (7.4-10.4); Monocytes # 0.1 K/mm3 (0.1-1.0); Neutrophils # 7.7 K/mm3 (1.8-7.8); Neutrophils % 89.8 % (37.0-80.0); Platelet Count 216 K/mm3 (142-424); Red Blood Count 3.91 M/mm3 (4.20-5.40); Red Cell Distribution Width 12.7 % (11.5-17.5); White Blood Count 8.6 K/mm3 (4.8-10.8)
[2024-09-20 07:35] LABS: MANUAL DIFFERENTIAL MANUAL DIFFERENTIAL (MANUAL DIFF)
[2024-09-20 07:56] LABS: Troponin I < 0.01 ng/ml (0.00-0.034)
[2024-09-20 08:30] VITALS: BP 133/65; PULSE 99; RESP 20; TEMP 36.5; O2SAT 95
--- NOTE | 2024-09-20 09:32 | HMH.PTEV ---
Physical Therapy Evaluation Rehab PT IP Evaluation Start: 09/20/24 07:39 Freq: ONCE Status: Active Protocol: Document 09/20/24 09:28 KVNG (Rec: 09/20/24 09:32 KVNG [id number]) Subjective/History History History Per H&P: This 78-year-old woman who is on home O2 at 3 L normal has progressively become more dyspneic and having edema in her lower extremities this has been occurring for about a week and now is only able to walk for a few steps before completely exhausted. Patient also takes Lasix daily. Main complaint today is generalized weakness and malaise with increased respiratory needs.... Subjective Subjective Pt lives alone in a single- story home with no CIARRA. Pt was IND with mobility prior to admission. Pt usually on 3L supplemental O2. Owns a RW but normally does not use an AD. New diagnosis of cancer in past 12 No months? Rehab PT IP Eval Objective Appearance Patient Behavior Appropriate,Cooperative Patient Orientation Person,Place Difficulty following instructions none Speech Pattern Clear Ambulation Patient Able to Ambulate Yes Ambulation Observation IP General Gait Pattern Observation No Deviations/Normal Ambulation Distance (feet) 40 Ambulation Assistive Device None Ambulation Ability Independent,Supervision/Stand by Balance Ability to Arise Able, uses arms to help Sitting Balance Steady, safe Standing Balance Steady, wide stance Dynamic Sitting Balance Ability Normal Dynamic Standing Balance Ability Good Transfers Bed Transfer Ability Independent Sit to Stand Bed Transfer Ability Independent Rehab PT IP prob,goals,plan Problems Date of Evaluation: 09/20/24 Rehab Potential Rehab Potential Innapropriate for Skilled Therapy Discharge Plan PT Discharge Plan Pt not appropriate for skilled acute care PT as her mobility is at baseline/IND. Eval Complexity Eval Charge Codes 87803 - Low Complexity PHYSICIAN CERTIFICATION: I certify the specified therapy services for Jordyn Olivarez are required, authorized, and reviewed every 30 days.
--- NOTE | 2024-09-20 09:38 | HMH.OTEV ---
OT Inpatient Evaluation Rehab OT IP Evaluation Start: 09/20/24 07:39 Freq: ONCE Status: Active Protocol: Document 09/20/24 09:34 BRIE (Rec: 09/20/24 09:38 [facility] [id number]) Rehab OT IP Assessment Subjective History Pt oriented x 3 on arrival. Pt agreeable to engage in therapy evaluation. Pt was admitted on 09/20/24 due CHF and PNA. History and physical: This 78-year-old woman who is on home O2 at 3 L normal has progressively become more dyspneic and having edema in her lower extremities this has been occurring for about a week and now is only able to walk for a few steps before completely exhausted. Patient also takes Lasix daily. Main complaint today is generalized weakness and malaise with increased respiratory needs. She states she is taking her home medicines as prescribed. Her past medical history includes smoking for more than 30 years stopped approximately 15 years ago, also has type 2 diabetes and hypothyroidism. The ER provider has called me down.., Patient is doing better after breathing treatments but still on required oxygen that is increased. And just not able to ambulate without being in severe to trace distress. Checking old records patient in 2022 was 177 pounds. But in February 2024 was 1 up to 187 pounds.. She presently is 180 pounds on today's measurement . Subjective I am doing better than I was. Prior to being in the hospital , pt lived at home alone. Pt claims normally she is independent with all ADLs and IADLs. She does not require any type of AE during functional transfers. She is on 3L of o2 at home normally. She also still drives. Objective Patient Orientation Person,Place,Birthday Right Upper Extremity Gross ROM WFL Left Upper Extremity Gross ROM WFL Bed Mobility bed mobility-scooting,bed mobility - supine/sit Assist Level Supervision/Stand by Transfer Training Sit/Stand Transfer Assist Level Supervision/Stand by Chair Transfer Ability Supervision/Stand by Lower Body Dressing Ability Standby Assistance Performing Toilet Hygiene Ability Standby Assistance Overall Commode/Toilet Transfer Ability Standby Assistance Commode/Toilet Transfer Technique Sit to/from Ambulatory Rehab OT IP prob,goals,plan Problems Date of Evaluation: 09/20/24 Rehab Potential Rehab Potential Innapropriate for Skilled Therapy Discharge Plan OT Discharge Plan Pt appears to be at her baseline with functional transfers and ADL independence . Pt can return home once she is medically stable per physician. Therapist recommends HH OT evaluation upon returning home for environmental safety. Eval Complexity Eval Charge Codes 92594 - Low Complexity PHYSICIAN CERTIFICATION: I certify the specified therapy services for Jordyn Olivarez are required, authorized, and reviewed every 30 days.
[2024-09-20 09:59] LABS: Chloride 97 mmol/L (98-107)
[2024-09-20 10:00] LABS: Albumin Level 3.8 g/dl (3.5-5.0); Potassium 4.3 mmoL/L (3.5-5.1); Sodium 136 mmol/L (136-145)
[2024-09-20 10:02] LABS: Blood Urea Nitrogen 20 mg/dl (7-17); Creatinine Clearance Estimated 60 mL/min (50-200); Estimated Glomerular Filt Rate 81 ml/min (>60); GFR (African American) 98 ML/MIN (>60)
[2024-09-20 10:03] LABS: Alanine Aminotransferase 19 U/L (12-78); Albumin/Globulin Ratio 1.4 (1.1-1.8); Alkaline Phosphatase 75 U/L (38-126); Anion Gap 17.3 mEq/L (5-15); Aspartate Amino Transferase 29 U/L (14-36); Bilirubin,Total 0.4 mg/dl (0.2-1.3); Calcium 9.2 mg/dl (8.4-10.2); Carbon Dioxide 26 mmol/L (22.0-30.0); Globulin 2.7 g/dL (1.3-3.2); Glucose 336 mg/dl (74-100); Magnesium 1.9 mg/dl (1.6-2.3); Total Protein,Serum 6.5 g/dl (6.3-8.2)
[2024-09-20] MEDS: LISINOPRIL/HCTZ 10-12.5MG TABLET 1 EACH PO (10:03)
[2024-09-20] MEDS: METFORMIN 500MG TABLET 1000 MG PO (10:04)
[2024-09-20] MEDS: DAPAGLIFLOZIN PROPANEDIOL 10 MG TABLET PO (10:04)
[2024-09-20] MEDS: LEVOTHYROXINE 88MCG (0.088MG) TAB 88 MCG PO (10:04)
[2024-09-20] MEDS: AZITHROMYCIN 250MG TABLET 500 MG PO (10:04)
[2024-09-20] MEDS: METOPROLOL SUCCINATE XL 25MG TABLET 12.5 MG PO (10:04)
--- NOTE | 2024-09-20 10:04 | SW/DCPLANNER ---
I spoke w/ this patient regarding plans once medically stable for discharge. PT/OT evaluated patient and recommended home health services at time of discharge. Patient voiced that she does home exercises and does not feel that she needs home health services once medically stable for discharge. I will continue to follow up w/ patient and assist w/ any needs/new orders.
[2024-09-20] MEDS: ENOXAPARIN 40MG/0.4ML SYRINGE 40 MG SUBCUT (10:08)
--- NOTE | 2024-09-20 10:26 | PC.NURSE ---
Pt. is laying in the bed talking with a visitor at this time. No needs. Call light in reach
[2024-09-20 10:43] LABS: Lymphocytes % 11 % (10-50); Monocytes % 1 % (2-9); Neutrophils % 88 % (42-76); Platelet Estimate Normal; RBC Morphology Normal; Total Cells Counted 100
[2024-09-20 11:56] LABS: POC Glucose,Bedside 277 (70-110)
[2024-09-20] MEDS: BUMETANIDE 1 MG TABLET PO (11:58)
--- NOTE | 2024-09-20 12:04 | P.CONCA_ITS ---
History of Present Illness History of Present Illness Consult date: 09/20/24 Requesting physician: Sergey Taylor Consult reason: congestive heart failure Chief complaint: SOA, CHF Additional Medical History:: 1. Former smoker -COPD with home oxygen use 2. Diabetes mellitus 3. Hypertension 4. Hyperlipidemia History of present illness: This 78-year-old woman who is on home O2 at 3 L normal has progressively become more dyspneic and having edema in her lower extremities this has been occurring for about a week and now is only able to walk for a few steps before completely exhausted. Patient also takes Lasix daily. Main complaint today is generalized weakness and malaise with increased respiratory needs. She states she is taking her home medicines as prescribed. Her past medical history includes smoking for more than 30 years stopped approximately 15 years ago, also has type 2 diabetes and hypothyroidism. The ER provider has called me down.., Patient is doing better after breathing treatments but still on required oxygen that is increased. And just not able to ambulate without being in severe to trace distress. Checking old records patient in 2022 was 177 pounds. But in February 2024 was 1 up to 187 pounds.. She presently is 180 pounds on today's measurement. ER physician is called me down and just feels that the patient is not able to be sent home. And I do agree when the patient is in the bed laying still she actually looks pretty good not breathing very difficult but any type of ambulation at all on her part respiratory rate goes up to closer to 30 and she looks quite distressed. Will go ahead and except for admission to try to do some diuresis, per the chest x-ray showing significant fluid plus or pitting edema in the lower extremities. Question also will need cardiology consult to see if there is been a change in her cardiac function. And old records could not find any source reference to ejection fraction are condition of cardiac muscle or valves. The above per Zelalem Trotter APRN for the hospitalist service Events as noted above confirmed with the patient. She does admit that she has not been taking her Lasix on a regular schedule but actually taken it only once every 3 to 4 days. She does admit to some dietary indiscretion during the holidays. She denies any chest pain, pressure or tightness but does note occasional rapid heart rates in the past that have improved with beta-chantelle therapy. Troponins this admission are normal. Patient's breathing has improved with diuresis. Echocardiogram this admission shows preserved ejection fraction with no significant valve disease. [facility] Disclaimer: The information contained in this section may have been updated after the patient was seen, as this information can be updated by other users. Medical History Kidney stone History of smoking 30 or more pack years History of COPD Chronic respiratory failure with hypoxia Dyspnea on exertion Pneumonia Acute and chronic respiratory failure with hypoxia COPD exacerbation Sinusitis Depression Obesity (BMI 30.0-34.9) REAGAN (obstructive sleep apnea) Hypothyroid Type 2 diabetes mellitus COPD exacerbation Surgical History H/O lithotripsy Family History Father Heart attack Hypertension Sister Heart attack Brother Hypertension Social History (Updated 09/20/24 @ 05:28 by Zelalem Trotter APRN) Smoking Status: Former smoker years smoked: 30 alcohol intake: never substance use type: denies use current occupational status: retired Travel in the last 8 weeks: None household members: none housing: house current occupational exposures/hazards: No caffeine: Yes Have you lived/traveled outside [place] in past 30 days?: No Contact w/someone who lives/traveled outside [place] past 30 days?: No Exposure to someone with infectious disease in past 14 days?: No Do you have a fever (greater than 100.4 F or 38 C)?: No Have you tested positive for COVID-19: No Exposed to someone with COVID-19 in past 14 days?: No Do you have a sore throat?: No Do you have a cough?: No Do you have any weakness?: No Do you have any diarrhea?: No Are you experiencing any unusual bleeding?: No Do you have any muscle aches/pain?: No Do you have any abdominal pain?: No Are you experiencing loss of taste or smell?: No Review of Systems Review of Systems Review of systems:: pertinent systems reviewed and negative unless documented below Constitutional Constitutional: Reports weakness *Cardiovascular Cardiovascular: Denies chest pain and Reports dyspnea *Respiratory Respiratory: Reports dyspnea *Neurologic Neurologic: Reports as per HPI and Reports weakness Exam Data for Last 24 hours Vital signs and Labs for Last 24 Hours: Temp Pulse Resp BP Pulse Ox O2 Del Method O2 Flow Rate 97.7 F 99 H 20 133/65 95 Nasal Cannula 3 09/20/24 08:30 09/20/24 08:30 09/20/24 08:30 09/20/24 08:30 09/20/24 08:30 09/20/24 11:15 09/20/24 11:15 Laboratory Results - last 24 hr 09/19/24 23:07: WBC 7.9, RBC 4.10 L, Hgb 12.0 L, Hct 38.1, MCV 92.9, MCH 29.3, MCHC 31.5 L, RDW 12.6, Plt Count 215, MPV 10.5 H, Neut % (Auto) 61.4, Lymph % (Auto) 26.0, Stanton % (Auto) 9.7 H, Eos % (Auto) 2.0, Baso % (Auto) 0.5, Neut # (Auto) 4.9, Lymph # (Auto) 2.1, Stanton # (Auto) 0.8, Eos # (Auto) 0.2, Baso # (Auto) 0.0, Sodium 138, Potassium 4.0, Chloride 97 L, Carbon Dioxide 35 H, Anion Gap 10.0, BUN 16, Creatinine 0.80, Estimated Creat Clear 60, Estimated GFR 69, Est GFR ( Amer) 84, Glucose 253 H, Lactate 1.0, Calcium 9.2, Total Bilirubin 0.5, AST 26, ALT 18, Alkaline Phosphatase 77, Troponin I < 0.01, NT-Pro-B Natriuret Pep 63.9, Total Protein 6.6, Albumin 3.9, Globulin 2.7, Album in/Globulin Ratio 1.4, HIV Ag/Ab Combo Qual Negative 09/19/24 23:17: VBG pH 7.34, VBG pCO2 53.2 H, VBG pO2 56.6 H, VBG HCO3 28.3, VBG Total CO2 30.0 H, VBG O2 Saturation 87.7 H, VBG Base Excess 2.6 H, VBG Lactic Acid 1.7 09/19/24 23:45: SARS-CoV-2 (PCR) Not detected, Influenza Type A (PCR) Not detected, Influenza Type B (PCR) Not detected, RSV (PCR) Not detected, Rhinovirus (PCR) Not detected 09/20/24 01:10: Urine Color Yellow, Urine Appearance Clear, Urine pH 5.5, Ur Specific [place] 1.020, Urine Protein Negative, Urine Glucose (UA) 3+, Urine Ketones 1+, Urine Blood Trace-l, Urine Nitrate Negative, Urine Bilirubin Negative, Urine Urobilinogen 0.2, Ur Leukocyte Esterase Negative, Urine RBC 3-5, Urine WBC Occasional, Ur Squamous Epith Cells None, Urine Bacteria Trace 09/20/24 01:57: Troponin I < 0.01 09/20/24 06:22: POC Glucose 352 H* 09/20/24 06:43: WBC 8.6, RBC 3.91 L, Hgb 11.6 L, Hct 36.2 L, MCV 92.6, MCH 29.7, MCHC 32.0, RDW 12.7, Plt Count 216, MPV 10.4, Neut % (Auto) 89.8 H, Lymph % (Auto) 8.7 L, Stanton % (Auto) 1.0 L, Eos % (Auto) 0.1, Baso % (Auto) 0.2, Neut # (Auto) 7.7, Lymph # (Auto) 0.8, Stanton # (Auto) 0.1, Eos # (Auto) 0.0, Baso # (Auto) 0.0, Total Counted 100, Neutrophils % (Manual) 88 H, Lymphocytes % (Manual) 11, Monocytes % (Manual) 1 L, Platelet Estimate Normal, RBC Morphology Normal, Sodium 136, Potassium 4.3, Chloride 97 L, Carbon Dioxide 26, Anion Gap 17.3 H, BUN 20 H, Creatinine 0.70, Estimated Creat Clear 60, Estimated GFR 81, E st GFR ( Amer) 98, Glucose 336 H D, Calcium 9.2, Magnesium 1.9, Total Bilirubin 0.4, AST 29, ALT 19, Alkaline Phosphatase 75, Troponin I < 0.01, Total Protein 6.5, Albumin 3.8, Globulin 2.7, Albumin/Globulin Ratio 1.4 09/20/24 11:49: POC Glucose 277 H I & O for Last 24 hours: Intake & Output 09/18/24 09/19/24 09/20/24 09/21/24 11:59 11:59 11:59 11:59 Intake Total 300 / 300 Output Total 1100 / 1100 Balance -800 / -800 Weight 180 lb 0.013 oz Constitutional Constitutional: mild distress *Routine Respiratory Exam Respiratory: Present decreased breath sounds; Absent rhonchi or wheezes *Routine Cardiovascular Exam Cardiovascular: Present RRR and murmur; Absent gallop or rubs *Routine Extremities Exam Extremities: Present edema *Routine Neurological Exam Neurological: Present alert, oriented X3 and CN II-XII intact Meds Home Medications and Allergies Home Medications ?Medication ?Instructions ?Recorded ?Confirmed ?Type blood sugar diagnostic (True #10 ea 03/21/22 09/20/24 History Metrix Glucose Test Strip) lancets 33 gauge (TRUEplus Lancets) #100 ea 03/21/22 09/20/24 History dapagliflozin propanediol 10 mg 10 mg PO DAILY 90 days #90 tabs 09/07/24 09/20/24 Rx tablet (Farxiga) levothyroxine 88 mcg tablet 88 mcg PO DAILYDM 90 days #90 tabs 09/07/24 09/20/24 Rx lisinopril 10 1 tab PO DAILY Hypertension 90 09/07/24 09/20/24 Rx mg-hydrochlorothiazide 12.5 mg days #90 tabs tablet metformin 500 mg tablet 1,000 mg (2 x 500 mg) PO BID 09/07/24 09/20/24 Rx Diabetes 90 days #360 tabs metoprolol succinate 25 mg 12.5 mg (1/2 x 25 mg) PO DAILY 90 09/07/24 09/20/24 Rx tablet,extended release 24 hr days #45 tabs budesonide 160 mcg-glycopyr 9 2 puff inhalation BID Copd 09/20/24 09/20/24 History mcg-formot 4.8 mcg/actuation HFA inhaler (Breztri Aerosphere) furosemide 40 mg tablet 40 mg PO DAILY PRN Edema 09/20/24 09/20/24 History New Prescriptions to Start Prescriptions: Allergies Allergy/AdvReac Type Severity Reaction Status Date / Time [id number] Reductase AdvReac myalgias Verified 07/14/24 15:13 Inhibitor Assessment and Plan *Assessment and plan (1) (HFpEF) heart failure with preserved ejection fraction: Status: Acute Qualifiers: Heart failure chronicity: acute Qualified Code(s): I50.31 - Acute diastolic (congestive) heart failure Category: Medical Code(s): I50.30 - Unspecified diastolic (congestive) heart failure (2) Acute on chronic respiratory failure with hypoxia and hypercapnia: Status: Acute Category: Medical Code(s): J96.21 - Acute and chronic respiratory failure with hypoxia; J96.22 - Acute and chronic respiratory failure with hypercapnia (3) Pneumonia: Status: Acute Qualifiers: Pneumonia type: due to unspecified organism Laterality: bilateral Lung location: lower lobe of lung Qualified Code(s): J18.9 - Pneumonia, unspecified organism Category: Medical Code(s): J18.9 - Pneumonia, unspecified organism (4) History of COPD: Status: Acute Category: Medical Code(s): Z87.09 - Personal history of other diseases of the respiratory system (5) History of smoking 30 or more pack years: Status: Acute Category: Social Hx Code(s): Z87.891 - Personal history of nicotine dependence (6) Hypothyroid: Status: Chronic Qualifiers: Hypothyroidism type: acquired Qualified Code(s): E03.9 - Hypothyroidism, unspecified Category: Medical Code(s): E03.9 - Hypothyroidism, unspecified (7) Type 2 diabetes mellitus: Status: Chronic Qualifiers: Diabetes mellitus [facility] insulin use: without long winder tender use Diabetes mellitus complication status: without complication Qualified Code(s): E11.9 - Type 2 diabetes mellitus without complications Category: Medical Code(s): E11.9 - Type 2 diabetes mellitus without complications (8) HTN (hypertension): Status: Acute Qualifiers: Hypertension type: primary hypertension Qualified Code(s): I10 - Essential (primary) hypertension Category: Medical Code(s): I10 - Essential (primary) hypertension (9) Hyperlipidemia: Status: Acute Qualifiers: Hyperlipidemia type: mixed hyperlipidemia Qualified Code(s): E78.2 - Mixed hyperlipidemia Category: Medical Code(s): E78.5 - Hyperlipidemia, unspecified Plan 1. HFpEF, newly diagnosed, in setting of possible pneumonia -Normal NT proBNP but with chest x-ray evidence of CHF -Normal troponins -On metoprolol, lisinopril with HCTZ, Farxiga and as needed Lasix -on azithromycin, ceftriaxone -Echo this admission shows normal EF with no significant valve disease 2. Hypertension -Well-controlled on current medication 3. History of COPD and ex-smoker -Home oxygen of 3 L/min 4. Type 2 diabetes mellitus -Recent hemoglobin A1c 8.4 on 07/14/2024 5. Hyperlipidemia -not on statin at this time -check lipid panel 6. Hypothyroidism, on replacement therapy -TSH normal at 2.31 on 03/02/2020 Plan is for possibly home later this afternoon. From cardiac standpoint patient is stable for discharge. Home medication recommendations: Farxiga 10 mg daily Lisinopril/HCTZ 10/12.5 mg daily Metoprolol succinate 12.5 mg daily Recommend Lasix 40 mg 3 times per week Follow-up in our office in 1 to 2 weeks with plans for outpatient ischemic workup including stress testing or CCTA and possibly repeat monitoring to assess for recurrent palpitations if indicated.
[2024-09-20 12:05] VITALS: BP 125/68; PULSE 96; RESP 17; TEMP 36.3; O2SAT 96
[2024-09-20 12:25] LABS: Chol/HDL Ratio 3.7 (1-3.5); Cholesterol 217 mg/dl (140-200); HDL Cholesterol 59 mg/dl (40-60); Triglycerides 97 mg/dl (30-150); VLDL Cholesterol 19 mg/dL (0-40)
[2024-09-20 12:36] LABS: Direct LDL Cholesterol 132.22 mg/dL (100-129)
--- NOTE | 2024-09-20 13:41 | EXP.DC.SUM ---
General Admission date:: 09/20/24 Discharge date: 09/20/24 HPI HPI HPI: This 78-year-old woman who is on home O2 at 3 L normal has progressively become more dyspneic and having edema in her lower extremities this has been occurring for about a week and now is only able to walk for a few steps before completely exhausted. Patient also takes Lasix daily. Main complaint today is generalized weakness and malaise with increased respiratory needs. She states she is taking her home medicines as prescribed. Her past medical history includes smoking for more than 30 years stopped approximately 15 years ago, also has type 2 diabetes and hypothyroidism. The ER provider has called me down.., Patient is doing better after breathing treatments but still on required oxygen that is increased. And just not able to ambulate without being in severe to trace distress. Checking old records patient in 2022 was 177 pounds. But in February 2024 was 1 up to 187 pounds.. She presently is 180 pounds on today's measurement. ER physician is called me down and just feels that the patient is not able to be sent home. And I do agree when the patient is in the bed laying still she actually looks pretty good not breathing very difficult but any type of ambulation at all on her part respiratory rate goes up to closer to 30 and she looks quite distressed. Will go ahead and except for admission to try to do some diuresis, per the chest x-ray showing significant fluid plus or pitting edema in the lower extremities. Question also will need cardiology consult to see if there is been a change in her cardiac function. And old records could not find any source reference to ejection fraction are condition of cardiac muscle or valves. Exam Data for Last 24 hours Vital signs and Labs for Last 24 Hours: Temp Pulse Resp BP Pulse Ox O2 Del Method O2 Flow Rate 97.4 F L 96 H 17 125/68 96 Nasal Cannula 3 09/20/24 12:09/20/24 12:05 09/20/24 12:09/20/24 12:09/20/24 12:09/20/24 12:09/20/24 12:05 Laboratory Results - last 24 hr 09/19/24 23:07: WBC 7.9, RBC 4.10 L, Hgb 12.0 L, Hct 38.1, MCV 92.9, MCH 29.3, MCHC 31.5 L, RDW 12.6, Plt Count 215, MPV 10.5 H, Neut % (Auto) 61.4, Lymph % (Auto) 26.0, [place] % (Auto) 9.7 H, Eos % (Auto) 2.0, Baso % (Auto) 0.5, Neut # (Auto) 4.9, Lymph # (Auto) 2.1, [place] # (Auto) 0.8, Eos # (Auto) 0.2, Baso # (Auto) 0.0, Sodium 138, Potassium 4.0, Chloride 97 L, Carbon Dioxide 35 H, Anion Gap 10.0, BUN 16, Creatinine 0.80, Estimated Creat Clear 60, Estimated GFR 69, Est GFR ( Amer) 84, Glucose 253 H, Lactate 1.0, Calcium 9.2, Total Bilirubin 0.5, AST 26, ALT 18, Alkaline Phosphatase 77, Troponin I < 0.01, NT-Pro-B Natriuret Pep 63.9, Total Protein 6.6, Albumin 3.9, Globulin 2.7, Albumin/Globulin Ratio 1.4, HIV Ag/Ab Combo Qual Negative 09/19/24 23:17: VBG pH 7.34, VBG pCO2 53.2 H, VBG pO2 56.6 H, VBG HCO3 28.3, VBG Total CO2 30.0 H, VBG O2 Saturation 87.7 H, VBG Base Excess 2.6 H, VBG Lactic Acid 1.7 09/19/24 23:45: SARS-CoV-2 (PCR) Not detected, Influenza Type A (PCR) Not detected, Influenza Type B (PCR) Not detected, RSV (PCR) Not detected, Rhinovirus (PCR) Not detected 09/20/24 01:10: Urine Color Yellow, Urine Appearance Clear, Urine pH 5.5, Ur Specific [place] 1.020, Urine Protein Negative, Urine Glucose (UA) 3+, Urine Ketones 1+, Urine Blood Trace-l, Urine Nitrate Negative, Urine Bilirubin Negative, Urine Urobilinogen 0.2, Ur Leukocyte Esterase Negative, Urine RBC 3-5, Urine WBC Occasional, Ur Squamous Epith Cells None, Urine Bacteria Trace 09/20/24 01:57: Troponin I < 0.01 09/20/24 06:22: POC Glucose 352 H* 09/20/24 06:43: WBC 8.6, RBC 3.91 L, Hgb 11.6 L, Hct 36.2 L, MCV 92.6, MCH 29.7, MCHC 32.0, RDW 12.7, Plt Count 216, MPV 10.4, Neut % (Auto) 89.8 H, Lymph % (Auto) 8.7 L, [place] % (Auto) 1.0 L, Eos % (Auto) 0.1, Baso % (Auto) 0.2, Neut # (Auto) 7.7, Lymph # (Auto) 0.8, [place] # (Auto) 0.1, Eos # (Auto) 0.0, Baso # (Auto) 0.0, Total Counted 100, Neutrophils % (Manual) 88 H, Lymphocytes % (Manual) 11, Monocytes % (Manual) 1 L, Platelet Estimate Normal, RBC Morphology Normal, Sodium 136, Potassium 4.3, Chloride 97 L, Carbon Dioxide 26, Anion Gap 17.3 H, BUN 20 H, Creatinine 0.70, Estimated Creat Clear 60, Estimated GFR 81, Est GFR ( Amer) 98, Glucose 336 H D, Calcium 9.2, Magnesium 1.9, Total Bilirubin 0.4, AST 29, ALT 19, Alkaline Phosphatase 75, Troponin I < 0.01, Total Protein 6.5, Albumin 3.8, Globulin 2.7, Albumin/Globulin Ratio 1.4, Triglycerides 97, Cholesterol 217 H, LDL Cholesterol Direct 132.22 H, VLDL Cholesterol 19, HDL Cholesterol 59, Cholesterol/HDL Ratio 3.7 H 09/20/24 11:49: POC Glucose 277 H I & O for Last 24 hours: Intake & Output 09/17/24 09/18/24 09/19/24 09/20/24 23:59 23:59 23:59 23:59 Intake Total 300 / 300 Output Total 1100 / 1100 Balance -800 / -800 Weight 81.647 kg 81.647 kg Results Data Completed and Pending Labs on day of discharge: Labs from last 24 hours 09/20/24 09/20/24 09/20/24 11:49 06:43 06:22 WBC 8.6 RBC 3.91 L Hgb 11.6 L Hct 36.2 L MCV 92.6 MCH 29.7 MCHC 32.0 RDW 12.7 Plt Count 216 MPV 10.4 Neut % (Auto) 89.8 H Lymph % (Auto) 8.7 L [place] % (Auto) 1.0 L Eos % (Auto) 0.1 Baso % (Auto) 0.2 Neut # (Auto) 7.7 Lymph # (Auto) 0.8 [place] # (Auto) 0.1 Eos # (Auto) 0.0 Baso # (Auto) 0.0 Total Counted 100 Neutrophils % (Manual) 88 H Lymphocytes % (Manual) 11 Monocytes % (Manual) 1 L Platelet Estimate Normal RBC Morphology Normal VBG pH VBG pCO2 VBG pO2 VBG HCO3 VBG Total CO2 VBG O2 Saturation VBG Base Excess VBG Lactic Acid Sodium 136 Potassium 4.3 Chloride 97 L Carbon Dioxide 26 Anion Gap 17.3 H BUN 20 H Creatinine 0.70 Estimated Creat Clear 60 Estimated GFR 81 Est GFR ( Amer) 98 Glucose 336 H D POC Glucose 277 H 352 H* Lactate Calcium 9.2 Magnesium 1.9 Total Bilirubin 0.4 AST 29 ALT 19 Alkaline Phosphatase 75 Troponin I < 0.01 NT-Pro-B Natriuret Pep Total Protein 6.5 Albumin 3.8 Globulin 2.7 Albumin/Globulin Ratio 1.4 Triglycerides 97 Cholesterol 217 H LDL Cholesterol Direct 132.22 H VLDL Cholesterol 19 HDL Cholesterol 59 Cholesterol/HDL Ratio 3.7 H Urine Color Urine Appearance Urine pH Ur Specific [place] Urine Protein Urine Glucose (UA) Urine Ketones Urine Blood Urine Nitrate Urine Bilirubin Urine Urobilinogen Ur Leukocyte Esterase Urine RBC Urine WBC Ur Squamous Epith Cells Urine Bacteria SARS-CoV-2 (PCR) HIV Ag/Ab Combo Qual Influenza Type A (PCR) Influenza Type B (PCR) RSV (PCR) Rhinovirus (PCR) 09/20/24 09/20/24 09/19/24 01:57 01:10 23:45 WBC RBC Hgb Hct MCV MCH MCHC RDW Plt Count MPV Neut % (Auto) Lymph % (Auto) [place] % (Auto) Eos % (Auto) Baso % (Auto) Neut # (Auto) Lymph # (Auto) [place] # (Auto) Eos # (Auto) Baso # (Auto) Total Counted Neutrophils % (Manual) Lymphocytes % (Manual) Monocytes % (Manual) Platelet Estimate RBC Morphology VBG pH VBG pCO2 VBG pO2 VBG HCO3 VBG Total CO2 VBG O2 Saturation VBG Base Excess VBG Lactic Acid Sodium Potassium Chloride Carbon Dioxide Anion Gap BUN Creatinine Estimated Creat Clear Estimated GFR Est GFR ( Amer) Glucose POC Glucose Lactate Calcium Magnesium Total Bilirubin AST ALT Alkaline Phosphatase Troponin I < 0.01 NT-Pro-B Natriuret Pep Total Protein Albumin Globulin Albumin/Globulin Ratio Triglycerides Cholesterol LDL Cholesterol Direct VLDL Cholesterol HDL Cholesterol Cholesterol/HDL Ratio Urine Color Yellow Urine Appearance Clear Urine pH 5.5 Ur Specific [place] 1.020 Urine Protein Negative Urine Glucose (UA) 3+ Urine Ketones 1+ Urine Blood Trace-l Urine Nitrate Negative Urine Bilirubin Negative Urine Urobilinogen 0.2 Ur Leukocyte Esterase Negative Urine RBC 3-5 Urine WBC Occasional Ur Squamous Epith Cells None Urine Bacteria Trace SARS-CoV-2 (PCR) Not detected HIV Ag/Ab Combo Qual Influenza Type A (PCR) Not detected Influenza Type B (PCR) Not detected RSV (PCR) Not detected Rhinovirus (PCR) Not detected 09/19/24 09/19/24 23:17 23:07 WBC 7.9 RBC 4.10 L Hgb 12.0 L Hct 38.1 MCV 92.9 MCH 29.3 MCHC 31.5 L RDW 12.6 Plt Count 215 MPV 10.5 H Neut % (Auto) 61.4 Lymph % (Auto) 26.0 [place] % (Auto) 9.7 H Eos % (Auto) 2.0 Baso % (Auto) 0.5 Neut # (Auto) 4.9 Lymph # (Auto) 2.1 [place] # (Auto) 0.8 Eos # (Auto) 0.2 Baso # (Auto) 0.0 Total Counted Neutrophils % (Manual) Lymphocytes % (Manual) Monocytes % (Manual) Platelet Estimate RBC Morphology VBG pH 7.34 VBG pCO2 53.2 H VBG pO2 56.6 H VBG HCO3 28.3 VBG Total CO2 30.0 H VBG O2 Saturation 87.7 H VBG Base Excess 2.6 H VBG Lactic Acid 1.7 Sodium 138 Potassium 4.0 Chloride 97 L Carbon Dioxide 35 H Anion Gap 10.0 BUN 16 Creatinine 0.80 Estimated Creat Clear 60 Estimated GFR 69 Est GFR ( Amer) 84 Glucose 253 H POC Glucose Lactate 1.0 Calcium 9.2 Magnesium Total Bilirubin 0.5 AST 26 ALT 18 Alkaline Phosphatase 77 Troponin I < 0.01 NT-Pro-B Natriuret Pep 63.9 Total Protein 6.6 Albumin 3.9 Globulin 2.7 Albumin/Globulin Ratio 1.4 Triglycerides Cholesterol LDL Cholesterol Direct VLDL Cholesterol HDL Cholesterol Cholesterol/HDL Ratio Urine Color Urine Appearance Urine pH Ur Specific [place] Urine Protein Urine Glucose (UA) Urine Ketones Urine Blood Urine Nitrate Urine Bilirubin Urine Urobilinogen Ur Leukocyte Esterase Urine RBC Urine WBC Ur Squamous Epith Cells Urine Bacteria SARS-CoV-2 (PCR) HIV Ag/Ab Combo Qual Negative Influenza Type A (PCR) Influenza Type B (PCR) RSV (PCR) Rhinovirus (PCR) DS: Diagnosis Discharge Diagnosis (1) (HFpEF) heart failure with preserved ejection fraction: Status: Acute Code(s): I50.30 - Unspecified diastolic (congestive) heart failure Qualifiers: Heart failure chronicity: acute Qualified Code(s): I50.31 - Acute diastolic (congestive) heart failure (2) Acute on chronic respiratory failure with hypoxia and hypercapnia: Status: Acute Code(s): J96.21 - Acute and chronic respiratory failure with hypoxia; J96.22 - Acute and chronic respiratory failure with hypercapnia (3) Pneumonia: Status: Acute Code(s): J18.9 - Pneumonia, unspecified organism Qualifiers: Laterality: bilateral Lung location: lower lobe of lung Pneumonia type: due to unspecified organism Qualified Code(s): J18.9 - Pneumonia, unspecified organism (4) History of COPD: Status: Acute Code(s): Z87.09 - Personal history of other diseases of the respiratory system (5) History of smoking 30 or more pack years: Status: Acute Code(s): Z87.891 - Personal history of nicotine dependence (6) Hypothyroid: Status: Chronic Code(s): E03.9 - Hypothyroidism, unspecified Qualifiers: Hypothyroidism type: acquired Qualified Code(s): E03.9 - Hypothyroidism, unspecified (7) Type 2 diabetes mellitus: Status: Chronic Code(s): E11.9 - Type 2 diabetes mellitus without complications Qualifiers: 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: without long-term use Diabetes mellitus complication status: without complication Qualified Code(s): E11.9 - Type 2 diabetes mellitus without complications (8) HTN (hypertension): Status: Acute Code(s): I10 - Essential (primary) hypertension Qualifiers: Hypertension type: primary hypertension Qualified Code(s): I10 - Essential (primary) hypertension (9) Hyperlipidemia: Status: Acute Code(s): E78.5 - Hyperlipidemia, unspecified Qualifiers: Hyperlipidemia type: mixed hyperlipidemia Qualified Code(s): E78.2 - Mixed hyperlipidemia Meds Home Medications and Allergies Home Medications ?Medication ?Instructions ?Recorded ?Confirmed ?Type blood sugar diagnostic (True #10 ea 03/21/22 09/20/24 History Metrix Glucose Test Strip) lancets 33 gauge (TRUEplus Lancets) #100 ea 03/21/22 09/20/24 History dapagliflozin propanediol 10 mg 10 mg PO DAILY 90 days #90 tabs 09/07/24 09/20/24 Rx tablet (Farxiga) levothyroxine 88 mcg tablet 88 mcg PO DAILYDM 90 days #90 tabs 09/07/24 09/20/24 Rx lisinopril 10 1 tab PO DAILY Hypertension 90 09/07/24 09/20/24 Rx mg-hydrochlorothiazide 12.5 mg days #90 tabs tablet metformin 500 mg tablet 1,000 mg (2 x 500 mg) PO BID 09/07/24 09/20/24 Rx Diabetes 90 days #360 tabs metoprolol succinate 25 mg 12.5 mg (1/2 x 25 mg) PO DAILY 90 09/07/24 09/20/24 Rx tablet,extended release 24 hr days #45 tabs budesonide 160 mcg-glycopyr 9 2 puff inhalation BID Copd 09/20/24 09/20/24 History mcg-formot 4.8 mcg/actuation HFA inhaler (Breztri Aerosphere) furosemide 40 mg tablet 40 mg PO DAILY PRN Edema 09/20/24 09/20/24 History New Prescriptions to Start Prescriptions: Allergies Allergy/AdvReac Type Severity Reaction Status Date / Time [id number] Reductase AdvReac myalgias Verified 07/14/24 15:13 Inhibitor Discharge Plan Disposition Patient Disposition: Home, Self-Care Condition: Fair Follow up Plan Follow up with: Pantera Daley PA [Physician Differential Specialist] - 09/30/24 2:30 pm Toribio Barger MD [Primary Care Provider] - Enter time for follow up Prescriptions/Medication Reconciliation: No Action (DME) lancets [TRUEplus Lancets] 33 gauge misc See Rx Instructions .ROUTE .MEDSUPPLY Qty: 100 Rx Instructions: As directed (DME) True Metrix Glucose Test Strip Strip See Rx Instructions .ROUTE .MEDSUPPLY Qty: 10 Rx Instructions: As directed levothyroxine 88 mcg tablet 88 mcg PO DAILYDM 90 Days Qty: 90 0RF dapagliflozin propanediol [Farxiga] 10 mg tablet 10 mg PO DAILY 90 Days Qty: 90 0RF lisinopril-hydrochlorothiazide 10-12.5 mg tablet 1 tab PO DAILY 90 Days Qty: 90 0RF metformin 500 mg tablet 1,000 mg PO BID 90 Days Qty: 360 0RF metoprolol succinate 25 mg tablet extended release 24 hr 12.5 mg PO DAILY 90 Days Qty: 45 0RF furosemide 40 mg tablet 40 mg PO DAILY PRN (Reason: Edema) Breztri Aerosphere 160-9-4.8 mcg/actuation HFA aerosol inhaler 2 puff INHALATION BID Rx Instructions: 2 PUFFS = 1 dose, taken twice a day every day per pt Problem Reconciliation Problems Reviewed?: Yes Patient Discharge Instructions ACTIVITY: Continue current activity DIET: continue same diet Patient Instructions: DI for Heart Failure, DI for Chronic Obstructive Pulmonary Disease, DI for Pneumonia -- Adult, DI for Pleural Effusion Print Language: Romansh Providers Primary Care Provider: Toribio Barger Admit Provider: Sergey Taylor Attending Provider: Sergey Taylor
[2024-09-20] MEDS: predniSONE 20MG TAB 40 MG PO (14:28)
--- NOTE | 2024-09-20 14:35 | PC.NURSE ---
Discharge education provided, questions encouraged and answered. Pt. v/u.
--- NOTE | 2024-09-20 14:43 | HMH.PHAINT1 ---
Pharmacy Intervention Comments: Counselled patient on new medications as well as discontinued medications. Patient verbalized understanding.
--- NOTE | 2024-09-20 14:45 | PC.NURSE ---
Pt. left unit via Wheelchair accompanied by family members x3 and staff x1 with home portable oxygen.
[2024-09-21 05:33] LABS: HCV Ab Non Reactive (Non Reactive)
--- NOTE | 2024-09-23 11:09 | SW/DCPLANNER ---
Phone patient x2 and left message each time with a call back number. Turner De Paz
== END 2024-09-20 14:45 | disposition home or self-care (01) ==
LOC: ER 09-20 01:05 → 2ND 09-20 01:10 → OB 09-20 01:25 → 2ND 09-20 01:50 → OB 09-20 04:31
PROVIDERS: Emergency Medicine; Nurse Practitioner Family; Physician Assistant; Admitting Provider Internal Medicine Adolescent Medicine; Emergency Provider Emergency Medicine; PCP Family Medicine; Visit Provider Internal Medicine Adolescent Medicine
DX: J18.9 Pneumonia, unspecified organism (principal); J96.21 Acute and chronic respiratory failure with hypoxia; J96.22 Acute and chronic respiratory failure with hypercapnia; Z87.891 Personal history of nicotine dependence; E03.9 Hypothyroidism, unspecified; E11.9 Type 2 diabetes mellitus without complications; E78.2 Mixed hyperlipidemia; I50.43 Acute on chronic combined systolic (congestive) and diastolic (congestive) heart failure; J44.1 Chronic obstructive pulmonary disease with (acute) exacerbation; I11.0 Hypertensive heart disease with heart failure; Z79.84 Long term (current) use of oral hypoglycemic drugs; Z79.899 Other long term (current) drug therapy
CPT/HCPCS: 36415; 71046; 80053; 80061; 81001; 82803; 82962; 83605; 83735; 83880; 84484; 85007; 85025; 86803; 87040; 87389; 87631; 93005; 93306; 94640; 97161; 97165; 99285; G0378; J0696; J1650; J1940; J2919; J7620

== ENCOUNTER 2025-05-01 23:16 | Emergency (ER) | payer MEDICARE, SELFPAY ==
--- NOTE | 2025-05-01 23:27 | ED_ITS ---
Discharge Plan Disposition Patient Disposition: Home, Self-Care Condition: Fair Prescriptions Prescriptions: New azithromycin 250 mg tablet 250 mg PO DAILY 6 Days Qty: 6 0RF Rx Instructions: start on day 2 of therapy prednisone 20 mg tablet 40 mg PO .qd 5 Days Qty: 10 0RF ondansetron 4 mg tablet,disintegrating 4 mg PO Q8HP PRN (Reason: nausea and vomiting) 5 Days Qty: 10 0RF No Action (DME) lancets [TRUEplus Lancets] 33 gauge misc See Rx Instructions .ROUTE .MEDSUPPLY Qty: 100 Rx Instructions: As directed (DME) True Metrix Glucose Test Strip Strip See Rx Instructions .ROUTE .MEDSUPPLY Qty: 10 Rx Instructions: As directed metformin 500 mg tablet 1,000 mg PO BID 90 Days Qty: 360 0RF Breztri Aerosphere 160-9-4.8 mcg/actuation HFA aerosol inhaler See Rx Instructions .ROUTE .COMPLEX Qty: 3 3RF Dose Instruction: INHALE 2 PUFFS TWICE DAILY (RT ONLY) Rx Instructions: INHALE 2 PUFFS TWICE DAILY (RT ONLY) doxycycline hyclate 100 mg capsule 100 mg PO BID 10 Days Qty: 20 0RF fluconazole 150 mg tablet 150 mg PO Q3D 0 Days Qty: 2 0RF Rx Instructions: may repeat second dose 72 hrs after first dose if symptoms persist levothyroxine 88 mcg tablet 88 mcg PO DAILYDM 90 Days Qty: 90 0RF metoprolol succinate 25 mg tablet extended release 24 hr 12.5 mg PO DAILY 90 Days Qty: 45 0RF dapagliflozin propanediol [Farxiga] 10 mg tablet 10 mg PO DAILY 90 Days Qty: 90 0RF lisinopril-hydrochlorothiazide 10-12.5 mg tablet 1 tab PO DAILY 90 Days Qty: 90 0RF furosemide 40 mg tablet 40 mg PO DAILY 30 Days Qty: 30 0RF Referrals Follow up/Referrals: Toribio Barger MD [Primary Care Provider, Internal Medicine] - See instructions Activity Restrictions/Add. Instructions Additional Instructions/Restrictions: Your CT scan did not show any evidence of blood clot, follow up pulmonary nodule with PCP. Take antibiotics as prescribed. You may take Tylenol as needed for sinus pain. Use your DuoNeb nebulizer at home every 4 hours scheduled for the next 2 days, then as needed. Please follow up with your primary care provider in 2-3 days. Please return to ED if your symptoms worsen, change in location, change in severity, new symptoms develop or if you become concerned for your health. Clinical Impressions Clinical Impression: COPD exacerbation, Sinus pressure, Cough, Acute viral syndrome, Incidental pulmonary nodule Print Language Print Language: Turkmen Discharge ED Provider: Phi Rendon General Adult HPI General Chief complaint: Shortness of Breath/Dyspnea Stated complaint: SOA; General Weakness; Nausea Time Seen by Provider: 05/01/25 23:27 History of Present Illness HPI narrative: Patient is a 79-year-old female history of hypertension hyperlipidemia COPD on 3 L at home, heart failure. She presents today for concern for shortness of breath. She reports cough that has been productive for about the last week and worsening. She reports that she was outside for a while in a iona wind and since then, has felt sick. She feels like she had when she had pneumonia previously. She denies any fevers, endorses a burning sensation in her chest and some nausea without vomiting. Denies any abdominal pain, flank pain, dysuria, hematuria. Denies any new lower extremity edema although she does have some left leg swelling, she reports that that has been there for years. She denies any obvious sick contacts. Denies any chest pain. She reports compliance with her fluid pill. Related Data Home Medications ?Medication ?Instructions ?Recorded ?Confirmed blood sugar diagnostic (True #10 ea 03/21/22 09/30/24 Metrix Glucose Test Strip) lancets 33 gauge (TRUEplus Lancets) #100 ea 03/21/22 0 09/30/24 Previous Rx's ?Medication ?Instructions ?Recorded furosemide 40 mg tablet 40 mg PO DAILY Edema 30 days #30 09/20/24 tabs budesonide 160 mcg-glycopyr 9 See Rx Instructions .Rou te 12/13/24 mcg-formot 4.8 mcg/actuation HFA .COMPLEX #3 ea inhaler (Breztri Aerosphere) metformin 500 mg tablet 1,000 mg (2 x 500 mg) PO BID 12/13/24 Diabetes 90 days #360 tabs doxycycline hyclate 100 mg capsule 100 mg PO BID 10 da ys #20 caps 02/01/25 fluconazole 150 mg tablet 150 mg PO Q3D 2 doses #2 tab s 02/03/25 dapagliflozin propanediol 10 mg 10 mg PO DAILY 90 days #90 tabs 03/04/25 tablet (Farxiga) levothyroxine 88 mcg tablet 88 mcg PO DAILYDM 90 days #90 tabs 03/04/25 metoprolol succinate 25 mg 12.5 mg (1/2 x 25 mg) PO DA MISTI 90 03/04/25 tablet,extended release 24 hr days #45 tabs lisinopril 10 1 tab PO DAILY Hypertension 90 03/30/25 mg-hydrochlorothiazide 12.5 mg days #90 tabs tablet azithromycin 250 mg tablet 250 mg PO DAILY 6 days #6 t abs 05/02/25 ondansetron 4 mg disintegrating 4 mg PO Q8HP PRN nause a and 05/02/25 tablet vomiting 5 days #10 tabs prednisone 20 mg tablet 40 mg (2 x 20 mg) PO .qd 5 d ays 05/02/25 #10 tabs Allergies Allergy/AdvReac Type Severity Reaction Status Date / Time [id number] Reductase AdvReac myalgias Verified 09/30/24 14:21 Inhibitor PFSH PFS Disclaimer: The information contained in this section may have been updated after the patient was seen, as this information can be updated by other users. Medical History (Updated 05/02/25 @ 01:44 by Phi Rendon MD) Fatigue Edema Dyspnea Kidney stone History of smoking 30 or more pack years History of COPD Chronic respiratory failure with hypoxia Dyspnea on exertion Pneumonia Acute and chronic respiratory failure with hypoxia COPD exacerbation Sinusitis Depression Obesity (BMI 30.0-34.9) REAGAN (obstructive sleep apnea) Hypothyroid Type 2 diabetes mellitus COPD exacerbation Surgical History H/O lithotripsy Family History Father Heart attack Hypertension Sister Heart attack Brother Hypertension Social History Smoking Status: Never smoker years smoked: 30 alcohol intake: never substance use type: denies use current occupational status: retired Travel in the last 8 weeks?: None household members: none housing: house current occupational exposures/hazards: No caffeine: Yes Other Medical History Have you received the Flu Vaccine for this season: No Have you received the Pneumonia Vaccine: Yes ROS Obtained: Yes All systems reviewed & no additional complaints except as documented Physical Exam General General appearance: alert, in no apparent distress and obese Head Head exam: atraumatic and normocephalic Eye Eye exam: Present PERRL and EOMI ENT ENT exam: Present normal oropharynx Neck Neck exam: Present full ROM and trachea midline Chest Chest inspection: Present symmetric chest wall rise Respiratory Respiratory exam: Present normal lung sounds bilaterally, prolonged expiratory phase and other (Diminished in the bases); Absent respiratory distress or stridor Cardiovascular Cardiovascular exam: Present regular rate and normal rhythm Abdominal Exam Abdominal exam: Present soft; Absent distention or tenderness Extremities Exam Extremities exam: Present full ROM and edema (2+ left lower extremity 1+ right lower extremity) Neurological Exam Neurological exam: Present alert and oriented X3 Psychiatric Psychiatric exam: Present normal mood Skin Skin exam: Present warm and dry Medical Decision Making Medical Records Screening: Per USPSTF and CDC recommendations, given the prevalence of disease in our region, it is our hospital?s policy to screen for HIV and viral Hepatitis for all patients aged 18 and over and those with ongoing risk factors. Leandro Inquiry Pt receiving controlled substance: No Vital Signs: 05/01/25 23:29 05/02/25 00:17 05/02/25 00:18 Temperature 98.3 F Temperature Source Oral Pulse Rate 89 Pulse Rate [Right Radial] 90 Respiratory Rate 16 Blood Pressure [Right Arm] 193/81 H Blood Pressure Mean [Right Arm] 118 Blood Pressure Source [Right Arm] Automatic Cuff Blood Pressure Position [Right Arm] Supine 02 Sat by Pulse Oximetry 95 Oxygen Delivery Method Nasal Cannula Nasal Cannula Oxygen Flow Rate (LPM) 3 Lab Data Lab Results 05/01/25 23:52: WBC 9.0, RBC 4.55, Hgb 13.3, Hct 42.2, MCV 92.7, MCH 29.2, MCHC 31.5 L, RDW 13.4, Plt Count 245, MPV 10.3, Neut % (Auto) 56.5, Lymph % (Auto) 32.3, Irion % (Auto) 8.9, Eos % (Auto) 1.3, Baso % (Auto) 0.6, Neut # (Auto) 5.1, Lymph # (Auto) 2.9, Irion # (Auto) 0.8, Eos # (Auto) 0.1, Baso # (Auto) 0.1, PT 10.7, INR 0.96, D-Dimer 1.02 H, Sodium 136, Potassium 4.1, Chloride 99, Carbon Dioxide 32 H, Anion Gap 9.1, BUN 18 H, Creatinine 0.60, Estimated Creat Clear 59, Estimated GFR 96, Est GFR ( Amer) 117, Glucose 190 H, Calcium 10.0, Magnesium 1.9, Total Bilirubin 0.3, AST 25, ALT 17, Alkaline Phosphatase 83, Troponin I < 0.01, NT-Pro-B Natriuret Pep 152, Total Protein 7.2, Albumin 4.4, Globulin 2.8, Albumin/Globulin Ratio 1.6, Lipase 174 05/01/25 23:54: VBG pH 7.37, VBG pCO2 55.4 H, VBG pO2 43.4 H, VBG HCO3 31.5 H, V BG Total CO2 33.2 H, VBG O2 Saturation 79.1 H, VBG Base Excess 6.3 H, VBG Lactic Acid 1.5 05/01/25 23:55: SARS-CoV-2 (PCR) Not detected, Influenza A Untype (PCR) Not detected, Influenza Type B (PCR) Not detected 05/01/25 23:52 05/01/25 23:52 Orders (Tests/Meds): ED MEDICATIONS Generic Name Dose Route Start Last Admin Trade Name Freq PRN Reason Stop Dose Admin Sodium Chloride 10 ml 05/02/25 01:26 05/02/25 01:28 Sodium Chloride 0.9% 10ml Syr (Rad Only) IV 06/01/25 01:25 10 ml NEEDED PRN Administration Maintain IV Site Discontinued Medications Generic Name Dose Route Start Last Admin Trade Name Freq PRN Reason Stop Dose Admin Albuterol/Ipratropium 3 ml 05/01/25 23:44 05/02/25 00:17 Ipratropium/Albuterol 3 Ml Neb IH 05/01/25 23:45 3 ml ONCE ONE Administration Magnesium Sulfate 2 gm in 50 mls @ 50 mls/hr 05/01/25 23:44 05/02/25 00:09 Magnesium Sulfate 2gm/50ml Premix IV 05/02/25 00:43 50 mls/hr ONCE ONE Administration Azithromycin 500 mg/ Sodium 250 mls @ 250 mls/hr 05/01/25 23:46 05/02/25 00:20 Chloride IV 05/01/25 23:47 250 mls/hr ONCE ONE Administration Iopamidol 80 ml 05/02/25 01:26 05/02/25 01:28 Iopamidol-370 (76%);100ml Bottle IV 05/02/25 01:27 80 ml ONCE ONE Administration Methylprednisolone Sodium Succinate 125 mg 05/01/25 23:44 05/02/25 00:11 Methylprednisolone Sod Succ 125mg Vial IV 05/01/25 23:45 125 mg ONCE ONE Administration Ondansetron HCl 4 mg 05/01/25 23:44 05/02/25 00:11 Ondansetron 4mg/2ml Vial IV 05/01/25 23:45 4 mg ONCE ONE Administration Sodium Chloride 40 ml 05/02/25 01:26 05/02/25 01:27 0.9 % Sodium Chloride 50 Ml Vial IV 05/02/25 01:27 40 ml ONCE ONE Administration ORDERS Category Date Time Status CT angio chest PE protocol Stat Cat Scan 05/02/25 00:56 Completed XR chest portable Stat Exams 05/01/25 23:44 Completed BNP [NT Pro Brain Natriuretic Pep.] Stat Lab 05/01/25 23:52 Completed CBC w/Auto Diff [Complete Blood Count Auto Diff] Stat Lab 05/01/25 23:52 Completed CMP [Comprehensive Metabolic Panel] Stat Lab 05/01/25 23:52 Completed D-Dimer Stat Lab 05/01/25 23:52 Completed Lipase Stat Lab 05/01/25 23:52 Completed MAG [Magnesium] Stat Lab 05/01/25 23:52 Completed PT INR [Prothrombin Time INR] Stat Lab 05/01/25 23:52 Completed Rapid PCR Covid and Flu A/B Stat Lab 05/01/25 23:55 Completed Trop I [Troponin I] Stat Lab 05/01/25 23:52 Completed Troponin I Q3H Lab 05/02/25 02:45 Ordered Troponin I Q3H Lab 05/02/25 05:45 Ordered VBG [Venous Blood Gas] Stat RT 05/01/25 23:54 Completed Medical Decision Narrative: In summary, this 79-year-old female presents to the emergency department today with shortness of breath. On initial evaluation patient is afebrile, hemodynamically stable on her home 3 L nasal cannula oxygen. On exam, is warm well-perfused with pulses brisk capillary refill. Oropharynx is clear. She is not in any respiratory distress to my examination, no retractions and no tachypnea, she has diminished breath sounds in the bases into the right upper lobe, will give DuoNebs, treat as COPD exacerbation with Solu-Medrol azithromycin and magnesium and reassess. Suspect COPD exacerbation versus pneumonia, however given lower extremity edema in the setting of the shortness of breath, will screen low risk PE with D-dimer. ACS workup as well. Differential diagnosis includes but is not limited to. Based on these concerns, I ordered. I reviewed prior records including. ECG personally interpreted demonstrates normal sinus rhythm with an incomplete right bundle branch block with no obvious acute ischemic ST change intervals within normal limits. Patient received Solu-Medrol, Zofran, DuoNeb, azithromycin for treatment. Labs personally reviewed demonstrate no leukocytosis, no evidence of anemia, VBG demonstrates a compensated chronic respiratory acidosis. No KODAK no electrolyte derangement troponin negative, low suspicion for ACS. COVID flu negative. XR personally interpreted demonstrates pulmonary vascular congestion with bilateral pleural effusions without obvious focal consolidation. CT imaging personally interpreted demonstrate no evidence of pulmonary embolism or focal consolidation. On reassessment patient reports improvement in her symptoms. Again, she remains on her home oxygen requirement of 3 L nasal cannula and has no increased work of breathing. Feels comfortable with discharge with strict precautions for suspected COPD exacerbation.. At this time it was felt that the patient was safe to be discharged home. The patient was in agreement with this plan. The patient was given strict return precautions prior to being discharged from the emergency department. Critical Care Critical Care Time Critical Care Time: Yes Attestation: On 05/01/25, the high probability of a clinically significant, sudden or life threatening deterioration of the following system(s) required my full and direct attention, intervention and personal management. The time I documented below is in addition to time spent performing reported procedures but includes the following listed in this critical care notation. Total Time Total Critical Care Time: 32 (Frequent reassessments, IV magnesium for COPD exacerbation)
[2025-05-01 23:29] VITALS: BP 193/81; PULSE 90; RESP 16; TEMP 36.8; O2SAT 95; BMI 31.8
--- NOTE | 2025-05-01 23:41 | ECG_ITS ---
APPROVED REPORT Exam: Resting ECG HR:90 bpm ECG Measurements Heart Rate 90 AXES NE 180 P 91 QRSd 91 QRS 74 QT 346 T 72 QTc 394 Conclusion SINUS RHYTHM LOW QRS VOLTAGE IN PRECORDIAL LEADS [QRS DEFLECTION < 1.0 mV IN CHEST LEADS] SEPTAL MYOCARDIAL INFARCTION , PROBABLY OLD [40+ ms Q WAVE IN V1/V2] ABNORMAL ECG UNCONFIRMED REPORT Electronically signed by : Phi Rendon, 05/02/2025 03:12:01
--- NOTE | 2025-05-01 23:44 | XR_ITS ---
PROCEDURE INFORMATION: Exam: XR Chest Exam date and time: 05/02/2025 12:13 AM Age: 79 years old Clinical indication: Cough and shortness of breath; Additional info: SOB, cough, diminished in bases TECHNIQUE: Imaging protocol: Radiologic exam of the chest. Views: 1 view. COMPARISON: CR XR CHEST 2V 09/19/2024 11:15 PM FINDINGS: Lungs: Unremarkable. No consolidation. Pleural spaces: Unremarkable. No pleural effusion. No pneumothorax. Heart/Mediastinum: Unremarkable. No cardiomegaly. Bones/joints: Unremarkable. IMPRESSION: No acute findings.
[2025-05-01 23:57] LABS: Lactate Venous 1.5 mmol/L (0.4-2.0); VBG HCO3 31.5 mmol/L (23-30); VBG PH 7.37 mmol/L (7.31-7.41); VBG PO2 43.4 mmol/L (28-40)
[2025-05-01 23:57] LABS: Coronavirus 19, PCR Not Detected (NotDetected); Influenza A, PCR Not Detected (NotDetected); Influenza B, PCR Not Detected (NotDetected)
[2025-05-01 23:58] LABS: VBG PCO2 55.4 mmol/L (35-51)
[2025-05-02] MEDS: MAGNESIUM SULFATE IN WATER 2 GM/50 ML PIGGYBACK IV (00:09)
[2025-05-02] MEDS: ONDANSETRON 4MG/2ML VIAL 4 MG IV (00:11)
[2025-05-02] MEDS: METHYLPREDNISOLONE SOD SUCC 125MG VIAL 125 MG IV (00:11)
[2025-05-02] MEDS: IPRATROPIUM/ALBUTEROL 3 ML NEB IH (00:17)
[2025-05-02 00:18] VITALS: PULSE 89
[2025-05-02] MEDS: AZITHROMYCIN 500 MG in 0.9 % SODIUM CHLORIDE 250 ML 250 MG IV (00:20)
[2025-05-02 00:22] LABS: Hematocrit 42.2 % (37.0-47.0); Hemoglobin 13.3 g/dL (12.2-16.2); Immature Granulocytes % 0.4 %; Mean Corpuscular HGB Conc 31.5 g/dL (31.8-35.4); Mean Corpuscular Hemoglobin 29.2 pg (27.0-31.2); Mean Corpuscular Volume 92.7 fl (81-99); Nucleated Red Blood Cells % 0 %; Platelet Count 245 K/mm3 (142-424); Red Blood Count 4.55 M/mm3 (4.20-5.40); Red Cell Distribution Width-SD 45.3 fL; White Blood Count 9.0 K/mm3 (4.8-10.8)
[2025-05-02 00:25] LABS: Alanine Aminotransferase 17 U/L (12-78); Albumin Level 4.4 g/dl (3.5-5.0); Albumin/Globulin Ratio 1.6 (1.1-1.8); Alkaline Phosphatase 83 U/L (38-126); Anion Gap 9.1 mEq/L (5-15); Aspartate Amino Transferase 25 U/L (14-36); Bilirubin,Total 0.3 mg/dl (0.2-1.3); Blood Urea Nitrogen 18 mg/dl (7-17); Calcium 10.0 mg/dl (8.4-10.2); Carbon Dioxide 32 mmol/L (22.0-30.0); Chloride 99 mmol/L (98-107); Creatinine Clearance Estimated 59 mL/min (50-200); Creatinine,Serum 0.60 mg/dl (0.52-1.04); Estimated Glomerular Filt Rate 96 ml/min (>60); GFR (African American) 117 ML/MIN (>60); Globulin 2.8 g/dL (1.3-3.2); Glucose 190 mg/dl (74-100); Lipase 174 U/L (23-300); Magnesium 1.9 mg/dl (1.6-2.3); Potassium 4.1 mmoL/L (3.5-5.1); Sodium 136 mmol/L (136-145); Total Protein,Serum 7.2 g/dl (6.3-8.2)
[2025-05-02 00:37] LABS: NT Pro Brain Natriuretic Pep. 152 pg/mL (0-450)
[2025-05-02 00:40] LABS: Troponin I < 0.01 ng/ml (0.00-0.034)
[2025-05-02 00:42] LABS: INR 0.96 (0.9-1.1); Prothrombin Time 10.7 seconds (10.1-12.5)
[2025-05-02 00:50] LABS: D-Dimer 1.02 ug/mL (0.0-0.5)
--- NOTE | 2025-05-02 00:56 | CT_ITS ---
PROCEDURE INFORMATION: Exam: CTA Chest With Contrast Exam date and time: 05/02/2025 1:08 AM Age: 79 years old Clinical indication: Abnormal findings; Abnormal diagnostic tests; Elevated d-dimer; Shortness of breath; Additional info: SOB, positive d dimer TECHNIQUE: Imaging protocol: Computed tomographic angiography of the chest with contrast. Exam focused on the arteries. 3D rendering (Not supervised by radiologist): MIP and/or 3D reconstructed images were created by the technologist. Radiation optimization: All CT scans at this facility use at least one of these dose optimization techniques: automated exposure control; mA and/or kV adjustment per patient size (includes targeted exams where dose is matched to clinical indication); or iterative reconstruction. Contrast material: ISOUVE 370; Contrast volume: 80 ml; Contrast route: INTRAVENOUS (IV); COMPARISON: CR XR CHEST PORTABLE 05/02/2025 12:13 AM FINDINGS: Pulmonary arteries: No central or large peripheral pulmonary emboli. Aorta: Calcific atherosclerosis of aorta. No evidence for aortic aneurysm or dissection. Calcific atherosclerosis of the descending thoracic aorta. Lungs: Moderate centrilobular emphysema. No focal infiltrates. Right upper lobe scarring image 7/29. Pleural spaces: Unremarkable. No pneumothorax. No pleural effusion. Heart: Unremarkable. No cardiomegaly. No pericardial effusion. Coronary arteries: Coronary artery calcifications. Lymph nodes: Unremarkable. No enlarged lymph nodes. Spleen: Right lower lobe nodule measuring spleen 8 mm image 7/100. Calcified splenic granulomas. Bones/joints: Unremarkable. No acute fracture. Soft tissues: Unremarkable. IMPRESSION: 1. No evidence for aortic aneurysm or dissection. 2. Moderate centrilobular emphysema. 3. Right lower lobe nodule measuring spleen 8 mm image 7/100 4. No central or large peripheral pulmonary emboli. 5. Right upper lobe scarring image 7/29. For patients at low risk (minimal or absent history of smoking and of other known risk factors), recommend CT Chest at 6-12 months, then consider CT Chest at 18-24 months. For patients at high risk (history of smoking or of other known risk factors), recommend CT Chest at 6-12 months, then CT Chest at 18-24 months. (Reference: Mini) References: Mini Wheeler et al. Guidelines for Management of Incidental Pulmonary Nodules Detected on CT Images: From the Fleischner Society 2017. Radiology. 2017;284(1):228-243.
[2025-05-02] MEDS: 0.9 % SODIUM CHLORIDE 50 ML VIAL 40 ML IV (01:27)
[2025-05-02] MEDS: IOPAMIDOL-370 (76%);100ML BOTTLE 80 ML IV (01:28)
[2025-05-02] MEDS: SODIUM CHLORIDE 0.9% 10ML SYR (RAD ONLY) 10 ML IV (01:28)
[2025-05-02 01:44] VITALS: BP 144/64; PULSE 93; RESP 16; TEMP 36.6; O2SAT 96
== END 2025-05-02 01:50 | disposition home or self-care (01) ==
PROVIDERS: Emergency Provider Emergency Medicine; PCP Family Medicine
DX: J44.1 Chronic obstructive pulmonary disease with (acute) exacerbation (principal); B34.9 Viral infection, unspecified; R91.1 Solitary pulmonary nodule; E78.5 Hyperlipidemia, unspecified; I11.0 Hypertensive heart disease with heart failure; I50.30 Unspecified diastolic (congestive) heart failure; E11.9 Type 2 diabetes mellitus without complications
CPT/HCPCS: 71045; 71275; 80053; 82803; 83690; 83735; 83880; 84484; 85025; 85378; 85610; 87636; 93005; 96360; 96375; 99291; J0456; J2405; J2919; J3475; J7050; Q9967

== ENCOUNTER 2025-06-28 22:31 | Outpatient (CLI) | payer MEDICARE, SELFPAY ==
[2025-06-28 19:15] LABS: Hematocrit 42.7 % (37.0-47.0); Hemoglobin 13.0 g/dL (12.2-16.2); Immature Granulocytes % 0.4 %; Mean Corpuscular HGB Conc 30.4 g/dL (31.8-35.4); Mean Corpuscular Hemoglobin 29.1 pg (27.0-31.2); Mean Corpuscular Volume 95.7 fl (81-99); Nucleated Red Blood Cells % 0 %; Platelet Count 278 K/mm3 (142-424); Red Blood Count 4.46 M/mm3 (4.20-5.40); Red Cell Distribution Width-SD 46.5 fL; White Blood Count 10.0 K/mm3 (4.8-10.8)
[2025-06-28 20:08] LABS: Alanine Aminotransferase 13 U/L (12-78); Albumin Level 4.0 g/dl (3.5-5.0); Albumin/Globulin Ratio 1.7 (1.1-1.8); Alkaline Phosphatase 90 U/L (38-126); Anion Gap 15.6 mEq/L (5-15); Aspartate Amino Transferase 17 U/L (14-36); Bilirubin,Total 0.7 mg/dl (0.2-1.3); Blood Urea Nitrogen 19 mg/dl (7-17); Calcium 9.7 mg/dl (8.4-10.2); Carbon Dioxide 35 mmol/L (22.0-30.0); Chloride 92 mmol/L (98-107); Cholesterol 234 mg/dl (140-200); Creatinine,Serum 0.70 mg/dl (0.52-1.04); Estimated Glomerular Filt Rate 81 ml/min (>60); GFR (African American) 98 ML/MIN (>60); Globulin 2.4 g/dL (1.3-3.2); Glucose 154 mg/dl (74-100); HDL Cholesterol 58 mg/dl (40-60); Potassium 4.6 mmoL/L (3.5-5.1); Sodium 138 mmol/L (136-145); Total Protein,Serum 6.4 g/dl (6.3-8.2); Triglycerides 159 mg/dl (30-150)
[2025-06-28 20:25] LABS: Hemoglobin A1C 8.7 % (4.0-6.0)
[2025-06-28 20:39] LABS: Thyroid Stimulating Hormone 3.65 uIU/mL (0.465-4.68)
== END 2025-06-28 23:59 | disposition home or self-care (01) ==
LOC: LAB.DROPOF 22:31
PROVIDERS: PCP Family Medicine; Visit Provider Family Medicine
DX: E03.9 Hypothyroidism, unspecified (principal); I10 Essential (primary) hypertension; E11.9 Type 2 diabetes mellitus without complications; E78.5 Hyperlipidemia, unspecified
CPT/HCPCS: 80053; 80061; 83036; 84443; 85025

== ENCOUNTER 2025-07-04 10:37 | Outpatient (CLI) | payer MEDICARE, SELFPAY ==
--- NOTE | 2025-07-04 11:00 | CA_ITS ---
FINAL REPORT CLINICAL HISTORY: bilateral lower leg redness and edema. HLD, DM, ex smoker, COPD FINDINGS: BILATERAL LOWER EXTREMITY DUPLEX DOPPLER Color Doppler and duplex Doppler of the bilateral lower extremity was performed. Spectral analysis was also performed. Velocities were measured at multiple levels. All velocities are in centimeters per second. RIGHT LINE UP MACHINE OPERATOR: 150 Prof: 150 SFA Prox: 133 SFA Mid: 63 SFA Distal: 78 Pop Prox: 52 Pop Dist: 50 LIBRARY MONITOR Prox: 62 LIBRARY MONITOR Mid: 125 LIBRARY MONITOR Dist: 49 Per Dist: 46 Waveforms are predominantly biphasic and monophasic. Limited evaluation of the calf veins. LEFT LINE UP MACHINE OPERATOR: 123 Prof: 84 SFA Prox: 108 SFA Mid: 120 SFA Distal: 94 Pop Prox: 57 Pop Dist: 36 LIBRARY MONITOR Prox: 53 LIBRARY MONITOR Mid: 111 LIBRARY MONITOR Dist: 69 Per Prox: 77 Per Mid: 41 Per Dist: 50 Waveforms are biphasic and monophasic. Exam is somewhat limited below the knee. IMPRESSION: Predominantly biphasic and monophasic waveforms with somewhat limited exam below the knees concerning for at least moderate atherosclerotic disease. No evidence of vessel occlusion. Consider CTA for further evaluation. Reviewed, Interpreted and Dictated by Ana Laura Valdivia MD Transcribed by Jazmine Arevalo Authenticated and [facility]
== END 2025-07-04 23:59 | disposition home or self-care (01) ==
LOC: RT 10:38
PROVIDERS: PCP Family Medicine; Visit Provider Family Medicine
DX: R93.6 Abnormal findings on diagnostic imaging of limbs (principal); I73.9 Peripheral vascular disease, unspecified; M79.89 Other specified soft tissue disorders; R23.8 Other skin changes; I11.0 Hypertensive heart disease with heart failure; I50.9 Heart failure, unspecified; E78.5 Hyperlipidemia, unspecified; E11.9 Type 2 diabetes mellitus without complications; J44.9 Chronic obstructive pulmonary disease, unspecified; Z87.891 Personal history of nicotine dependence
CPT/HCPCS: 93925

== ENCOUNTER 2025-09-19 12:17 | Emergency (ER) | payer MEDICARE, SELFPAY ==
--- OUTSIDE RECORDS SUMMARY | 2025-08-03 14:00 | XMS_ITS | Encounter Summary ---
Author Organization [facility] Address [address] [place] [address] Care Team Providers Care Blankbook Stitching Machine Operator Name Role Phone Toribio Barger MD Primary Care Provider [phone] Reason for Visit * Reason Comments Peripheral Vascular Disease [employer] referred for peripheral vascular disease,complains of leg pain and legs getting weak and tired when she stands. * Consultation (Routine) - Pending Review Specialty Diagnoses / Procedures Referred By Contact Referred To Contact Cardiothoracic Surgery Diagnoses PVD (peripheral vascular disease) Toribio Barger MD [address] [place] [address] Phone: tel:[phone] fax:[phone] [facility] [address] [address] Phone: tel: fax: Referral ID Status Reason Start Date Expiration Date V isits Requested Visits Authorized [id number] Pending Review 07/15/2025 10/14/2026 1 1 Encounter Details Date Type Department Care Team (Late st Contact Info) Description 08/03/2025 2:00 PM EST Office Visit [facility] [address] [address] Annetta Brown APRN [address] [address] PVD (peripheral vascular disease) (Primary Dx) Social History Tobacco Use Types Packs/Day Years Used Date Smoking Tobacco: Former Cigarettes Smokeless Tobacco: Never Tobacco Cessation:Counseling Given: Not Answered Comments:Smoked 1 1/2 ppd for 40 years. 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 Not on file Not on file Not on file documented as of this encounter Last Filed Vital Signs Vital Sign Reading Time Taken Comments Blood Pressure 137/76 08/03/2025 1:59 PM EST Pulse 81 08/03/2025 1:58 PM EST Temperature 36.4 C (97.5 F) 08/03/2025 1:58 PM EST Respiratory Rate - - Oxygen Saturation 90% 08/03/2025 1:5 8 PM EST Inhaled Oxygen Concentration - - Weight 81.6 kg (180 lb) 08/03/2025 1:58 PM EST Height 157.5 cm (5' 2 ) 08/03/2025 1:58 PM EST patient reports Body Mass Index 32.92 08/03/2025 1:58 PM EST documented in this encounter Progress Notes * Annetta Brown APRN - 08/03/2025 2:00 PM EST Images from the original note were not included. 08/03/2025 Patient Information Jordyn Olivarez [address] [place] [address] 1945 'PCP/Referring Physician' Toribio Barger MD Marshall, Kenneth E, MD [phone] Chief Complaint Patient presents with Peripheral Vascular Disease [employer] referred for peripheral vascular disease,complains of leg pain and legs getting weak and tired when she stands. History of Present Illness: Jordyn Olivarez is a 79 y.o. female new patient referred to Dr. Patten per PCP, Dr. Toribio Barger, regarding peripheral vascular disease. PMH: REAGAN on CPAP, COPD (chronic supplemental O2 since 2019), hypertension, hyperlipidemia, hypothyroid, type 2 diabetes, former smoker, and PVD. Patient reported discoloration of her feet particular the right side with dependent edema and legs feeling tired when she walks long distance or stands for extended time. Also reports night time leg cramps and leg pain. Wound to right 4th toe appears to be healing in a timely manner. FMH: mother bilateral lower extremity amputee due to PVD. Patient Active Problem List Diagnosis Hypertension Hyperlipidemia Diabetes mellitus COPD (chronic obstructive pulmonary disease) Sleep apnea PVD (peripheral vascular disease) Past Medical History: Diagnosis Date Arthritis COPD (chronic obstructive pulmonary disease) Diabetes mellitus Disease of thyroid gland Hyperlipidemia Hypertension Kidney stone Sleep apnea Past Surgical History: Procedure Laterality Date CYSTOSCOPY BLADDER STONE LITHOTRIPSY N/A Current Outpatient Medications: Farxiga 10 MG tablet, Take 10 mg by mouth Daily., Disp: , Rfl: furosemide (LASIX) 40 MG tablet, Take 1 tablet by mouth As Needed., Disp: , Rfl: levothyroxine (SYNTHROID, LEVOTHROID) 88 MCG tablet, Take 1 tablet by mouth Every Morning., Disp: ,Rfl: lisinopril-hydrochlorothiazide (PRINZIDE,ZESTORETIC) 10-12.5 MG per tablet, Take 1 tablet by mouth Daily., Disp: , Rfl: metFORMIN (GLUCOPHAGE) 1000 MG tablet, Take 1 tablet by mouth 2 (Two) Times a Day With Meals., Disp: , Rfl: metoprolol succinate XL (TOPROL-XL) 25 MG 24 hr tablet, Take 1 tablet by mouth Daily. I/2 tablet daily, Disp: , Rfl: aspirin 81 MG EC tablet, Take 1 tablet by mouth Daily., Disp: , Rfl: Allergies Allergen Reactions Statins Myalgia Social History Socioeconomic History Marital status: Number of children: 3 Tobacco Use Smoking status: Former Types: Cigarettes Smokeless tobacco: Never Tobacco comments: Smoked 1 1/2 ppd for 40 years. Quit 18 years ago Vaping Use Vaping status: Never Used Substance and Sexual Activity Alcohol use: Not Currently Drug use: Never Sexual activity: Defer Family History Problem Relation Name Age of Onset Hypertension Mother Heart failure Mother Lung disease Father black lung Diabetes Father Review of Systems Constitutional: Negative. Negative for chills, decreased appetite, diaphoresis, fever, malaise/fatigue, night sweats and weight loss. HENT: Negative. Negative for congestion, hoarse voice and sore throat. Cardiovascular: Positive for claudication, dyspnea on exertion and leg swelling. Negative for chestpain, irregular heartbeat, near-syncope, orthopnea, palpitations, paroxysmal nocturnal dyspnea and syncope. Respiratory: Positive for cough, shortness of breath and sleep disturbances due to breathing. Negative for hemoptysis, snoring, sputum production and wheezing. Hematologic/Lymphatic: Negative for adenopathy and bleeding problem. Bruises/bleeds easily. Skin: Positive for color change. Negative for dry skin, itching, poor wound healing and rash. Musculoskeletal: Positive for muscle cramps. Negative for falls and muscle weakness. Gastrointestinal: Negative. Negative for abdominal pain, anorexia, constipation, diarrhea, nausea and vomiting. Genitourinary: Negative. Negative for dysuria and frequency. Neurological: Positive for loss of balance and numbness. Negative for difficulty with concentration, dizziness, headaches, paresthesias, seizures and weakness. Psychiatric/Behavioral: Negative. Negative for altered mental status, depression and memory loss. The patient does not have insomnia and is not nervous/anxious. Allergic/Immunologic: Negative. Negative for persistent infections. Vitals: 08/03/25 1358 08/03/25 1359 BP: 145/75 137/76 BP Location: Right arm Left arm Patient Position: Sitting Sitting Pulse: 81 Temp: 97.5 ??F (36.4 ??C) SpO2: 90% Weight: 81.6 kg (180 lb) Height: 157.5 cm (62 ) Physical Exam Vitals reviewed. Constitutional: General: She is not in acute distress. Appearance: She is well-developed and well-groomed. She is obese. She is not toxic-appearing. Comments: Seated in WC HENT: Head: Normocephalic and atraumatic. Eyes: General: Lids are normal. Conjunctiva/sclera: Conjunctivae normal. Pupils: Pupils are equal, round, and reactive to light. Neck: Vascular: No carotid bruit or JVD. Cardiovascular: Rate and Rhythm: Normal rate and regular rhythm. Pulses: Femoral pulses are 1+ on the right side and 1+ on the left side. Dorsalis pedis pulses are detected w/ Doppler on the right side and detected w/ Doppler on the leftside. Posterior tibial pulses are 1+ on the right side and 1+ on the left side. Heart sounds: S1 normal and S2 normal. No murmur heard. Comments: Trace bilateral pedal/LE edema Pulmonary: Effort: Pulmonary effort is normal. No respiratory distress. Breath sounds: Decreased breath sounds present. No wheezing, rhonchi or rales. Comments: Wearing supplemental oxygen Musculoskeletal: General: Normal range of motion. Cervical back: Normal range of motion and neck supple. Right lower leg: Edema present. Left lower leg: Edema present. Feet: Right foot: Skin integrity: Skin integrity normal. Toenail Condition: Right toenails are normal. Left foot: Skin integrity: Skin breakdown present. Toenail Condition: Left toenails are normal. Comments: Small dry ecchymotic lesion proximal to left 4th toenail. Feet are warm Skin: General: Skin is warm and dry. Capillary Refill: Capillary refill takes less than 2 seconds. Neurological: General: No focal deficit present. Mental Status: She is alert and oriented to person, place, and time. Psychiatric: Attention and Perception: Attention normal. Mood and Affect: Mood normal. Speech: Speech normal. Behavior: Behavior normal. Behavior is cooperative. The ROS, past medical history, surgical history, family history, social history, and vitals were reviewed by myself and corrected as needed. Labs/Imaging: Assessment / Plan: 1. PVD (peripheral vascular disease) - 79 y.o. female new patient referred to Dr. Patten per PCP, Dr. Toribio Barger, regarding peripheral vascular disease. - BLE arterial duplex 07/04/2025: Biphasic and monophasic arterial waveforms throughout bilateral lower extremities concerning for at least moderate ASCVD. No vessel occlusion. - PMH: REAGAN on CPAP, COPD (chronic supplemental O2 since 2019), hypertension, hyperlipidemia, hypothyroid, type 2 diabetes, former smoker, and PVD. - Symptoms: Reddish discoloration of her feet particular the right side with dependent edema and legs feeling tired when she walks long distance or stands for extended time. Night time leg cramps and leg pain. Wound to right 4th toe appears to be healing in a timely manner. - FMH: mother bilateral lower extremity amputee due to PVD. - Exam: Feet are somewhat discolored with deep red or chun color. Feet are warm to touch. Trace bilateral lower extremity edema. Bilateral posterior tibialis pulses are palpable +1 but dorsalis pedis pulses are a weak monophasic signal. Bilateral femoral pulses feel diminished as well +1 -Will pursue ANIBAL and CTA with runoff -Add aspirin 81 mg/day -Lipid management per PCP as patient reports allergy to statin - RTC 4 weeks with testing results Follow Up: Return in about 4 weeks (around 08/31/2025) for ANIBAL, CTA with runoffs. Or sooner for any further concerns or worsening sign and symptoms. Annetta Brown APRN [facility] Cardiothoracic Surgery Time Spent: I spent 45 minutes caring for Jordyn on this date of service. This time includes time spent by me in the following activities: preparing for the visit, reviewing tests, obtaining and/or reviewing a separately obtained history, performing a medically appropriate examination and/or evaluation, counseling and educating the patient/family/caregiver, ordering medications, tests, or procedures, documenting information in the medical record, and care coordination. documented in this encounter Plan of Treatment Upcoming Encounters Date Type Department Care Team (Late st Contact Info) Description 10/13/2025 11:00 AM EST Office Visit [facility] [address] [address] Annetta Brown APRN [address] [address] documented as of this encounter Visit Diagnoses Diagnosis PVD (peripheral vascular disease)- Primary Unspecified peripheral vascular disease documented in this encounter Care Teams Blankbook Stitching Machine Operator Relationship Specialty Start Date End Date Toribio Barger MD [address] [place] [address] PCP - General Family Medicine 08/03/25 documented as of this encounter
--- OUTSIDE RECORDS SUMMARY | 2025-09-12 07:34 | XMS_ITS | Encounter Summary ---
Author Organization [facility] Address [address] [place] [address] Care Team Providers Care Pill Coater Name Role Phone Toribio Barger MD Primary Care Provider [phone] Reason for Referral * MRI/CAT/PET Scan (Routine) - Closed Specialty Diagnoses / Procedures [facility]erred By [facility] Referred To Contact Radiology Diagnoses PVD (peripheral vascular disease) Procedures CT Angio Abdominal Aorta Bilateral Iliofem Runoff With & Without Contrast Annetta Brown APRN [address] [place] [address] Phone: tel: fax: [facility] [address] [place] [id number] Phone: tel: Referral ID Status Reason Start Date Expiration Date Visits Re quested Visits Authorized [id number] Closed 08/04/2025 11/03/2026 1 1 Reason for Visit * MRI/CAT/PET Scan (Routine) - Closed Specialty Diagnoses / Procedures Referred By [facility] Referred To Contact Radiology Diagnoses PVD (peripheral vascular disease) Procedures CT Angio Abdominal Aorta Bilateral Iliofem Runoff With & Without Contrast Annetta Brown APRN [address] [address] Phone: tel: fax: [facility] [address] [place] [address] Phone: tel: Referral ID Status Reason Start Date Expiration Date Visits Re quested Visits Authorized [id number] Closed 08/04/2025 11/03/2026 1 1 Encounter Details Date Type Department Care Team (Latest Contact Info) Description 09/12/2025 7:34 AM EST - 09/12/2025 11:59 PM EST Hospital Encounter [facility] [address] [place] [address] PVD (peripheral vascular disease) Discharge Disposition: Home or Self Care Social History Tobacco Use Types Packs/Day Years Used Date Smoking Tobacco: Former Cigarettes Smokeless Tobacco: Never Comments:Smoked 1 1/2 ppd fo r 40 years. 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 08/03/2025 Farxiga 10 MG tablet Take 10 mg by mouth Daily. 06/14/2025 furosemide (LASIX) 40 MG tablet Take 1 tablet by mouth As Needed. levothyroxine (SYNTHROID, LEVOTHROID) 88 MCG tablet Take 1 tablet by mouth Every Morning. 06/14/2025 lisinopril-hydroc hlorothiazide (PRINZIDE,ZESTORE TIC) 10-12.5 MG per tablet Take 1 tablet by mouth Daily. metFORMIN (GLUCOPHAGE) 1000 MG tablet Take 1 tablet by mouth 2 (Two) Times a Day With Meals. metoprolol succinate XL (TOPROL-XL) 25 MG 24 hr tablet Take 1 tablet by mouth Daily. I/2 tablet daily 06/14/2025 documented as of this encounter Plan of Treatment Upcoming Encounters Date Type Department Care Team (Late st Contact Info) Description 10/13/2025 11:00 AM EST Office Visit [facility] [address] [place] [address] Annetta Brown, MOLD LOFT WORKER [address] [facility] [address] [place] [address] documented as of this encounter Procedures Procedure Name Priority Date/Time Associated Diagnosis Comments CT ANGIO ABDOMINAL AORTA BILAT ILIOFEM RUNOFF Routine 09/12/2025 8:15 AM EST PVD (peripheral vascular disease) documented in this encounter Results * CT Angio Abdominal Aorta Bilateral Iliofem Runoff (09/12/2025 8:15 AM EST) Anatomical Region Laterality Modality Vascular, Chest, Abdomen N/A Compute d Tomography 09/16/2025 4:10 PM EST Impressions 09/16/2025 4:14 PM EST Impression: 1.Borderline hemodynamically significant stenosis at the origin of the left common iliac artery. 2.Multifocal stenosis of the bilateral SFA and popliteal arteries. 3.Occlusion of the distal right TP trunk. 4.Multifocal stenosis of the tibial vessels bilaterally. 5.Bilateral adnexal cysts. Recommend pelvic ultrasound for further characterization. Electronically Signed: Rony Stevens MD 09/16/2025 4:14 PM EST Workstation ID: [id number] Narrative 09/16/2025 4:[address] ANGIO ABDOMINAL AORTA BILAT ILIOFEM RUNOFF Date of Exam: 09/12/2025 7:47 AM EST Indication: PVD. Comparison: None available. Technique: CTA of the abdomen, pelvis and both lower extremities was performed after the uneventful intravenous administration of iodinated contrast. Reconstructed coronal and sagittal images were also obtained. In addition, a 3-D volume rendered image was created for interpretation. Automated exposure control and iterative reconstruction methods were used. Radiation audit for number of CT and nuclear cardiology exams performed in the last year: 0. Findings: Scattered plaquing of the descending thoracic aorta. 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 The celiac artery is reconstituted distally. There is mild to moderate plaquing of the SMA. Single bilateral renal arteries are patent. The NATE is patent. There is mild plaquing of the infrarenal abdominal aorta. Borderline hemodynamically significant stenosis at the origin of the left common iliac artery. Right common iliac artery is patent. Bilateral internal and bilateral external iliac arteries are patent. Bilateral common femoral arteries are patent. Bilateral profundofemoral arteries are patent. Mild multifocal stenosis of the SFA. There is also multifocal stenosis of the right popliteal artery. There is high-grade stenosis involving the horizontal portion of the right anterior tibial artery. Occlusion of the distal right TP trunk. Multifocal stenosis of the tibial vessels on the right. The left SFA and popliteal artery demonstrate multifocal stenosis with borderline hemodynamically significant areas. There is multifocal disease throughout the tibial vessels bilaterally. Limited evaluation of the lung bases is unremarkable. Liver and gallbladder are normal. Pancreas and spleen are normal. Mild nodular thickening of the left adrenal gland. The adrenal glands are otherwise unremarkable. Bilateral kidneys are normal. Bladder is unremarkable. Bilateral adnexal cysts measuring 6.4 cm on the right and 7.2 cm on the left. Uterus is unremarkable. There is diverticulosis without evidence of diverticulitis. Small bowel and appendix are normal. No adenopathy is identified. No aggressive appearing lytic or sclerotic bone lesions are identified. Procedure Note Rony Stevens MD - 09/16/2025 CT ANGIO ABDOMINAL AORTA BILAT ILIOFEM RUNOFF Date of Exam: 09/12/2025 7:47 AM EST Indication: PVD. Comparison: None available. Technique: CTA of the abdomen, pelvis and both lower extremities wasperformed after the uneventful intravenous administration of iodinatedcontrast. Reconstructed coronal and sagittal images were also obtained.In addition, a 3-D volume rendered image was created for interpretation. Automated exposure control and iterativereconstruction methods were used. Radiation audit for number of CT andnuclear cardiology exams performed in the last year: 0. Findings: Scattered plaquing of the descending thoracic aorta. 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 The celiac artery is reconstituteddistally. There is mild to moderate plaquing of the SMA. Single bilateralrenal arteries are patent. The NATE is patent. There is mild plaquing of the infrarenal abdominal aorta.Borderline hemodynamically significant stenosis at the origin of the leftcommon iliac artery. Right common iliac artery is patent. Bilateralinternal and bilateral external iliac arteries are patent. Bilateral common femoral arteries are patent.Bilateral profundofemoral arteries are patent. Mild multifocal stenosis ofthe SFA. There is also multifocal stenosis of the right popliteal artery.There is high-grade stenosis involving the horizontal portion of the right anterior tibial artery. Occlusion ofthe distal right TP trunk. Multifocal stenosis of the tibial vessels onthe right. The left SFA and popliteal artery demonstrate multifocalstenosis with borderline hemodynamically significant areas. There is multifocal disease throughout the tibialvessels bilaterally. Limited evaluation of the lung bases is unremarkable. Liver andgallbladder are normal. Pancreas and spleen are normal. Mild nodularthickening of the left adrenal gland. The adrenal glands are otherwiseunremarkable. Bilateral kidneys are normal. Bladder is unremarkable. Bilateral adnexal cysts measuring 6.4 cm on theright and 7.2 cm on the left. Uterus is unremarkable. There isdiverticulosis without evidence of diverticulitis. Small bowel andappendix are normal. No adenopathy is identified. No aggressive appearing lytic or sclerotic bone lesions are identified. IMPRESSION: Impression: 1.Borderline hemodynamically significant stenosis at the origin of theleft common iliac artery. 2.Multifocal stenosis of the bilateral SFA and popliteal arteries. 3.Occlusion of the distal right TP trunk. 4.Multifocal stenosis of the tibial vessels bilaterally. 5.Bilateral adnexal cysts. Recommend pelvic ultrasound for furthercharacterization. Electronically Signed: Rony Stevens MD 09/16/2025 4:14 PM EST Workstation ID: [id number] Annetta Brown MOLD LOFT WORKER IMG CT ORDERABLES Final Res ult documented in this encounter Visit Diagnoses Diagnosis PVD (peripheral vascular disease) Unspecified peripheral vascular disease documented in this encounter Administered Medications Inactive Administered Medications - up to 3 most recent administrations Medication Order MAR Action Action Date Dose Rate Site iopamidol (ISOVUE-370) 76 % injection 100 mL 100 mL, Intravenous, Once in Imaging, On 09/12/25 at 0817, For 1 dose Given 09/12/2025 8:15 AM EST 130 mL documented in this encounter Care Teams Pill Coater Relationship Specialty Start Date End Date Toribio Barger MD [address] [place] [address] PCP - General Family Medicine 08/03/25 documented as of this encounter
--- OUTSIDE RECORDS SUMMARY | 2025-09-12 08:45 | XMS_ITS | Encounter Summary ---
Author Organization [facility] Address [address] [place] [address] Care Team Providers Care Gas Station Cashier Name Role Phone Toribio Barger MD Primary Care Provider +1- [phone] Reason for Referral * Diagnostic Imaging (Routine) - Closed Specialty Diagnoses / Procedures Referred By Contac t Referred To Contact Diagnoses PVD (peripheral vascular disease) Procedures Duplex Lower Extremity Art / Grafts - Bilateral CAR Annetta Brown APRN [address] [place] [address] Phone: tel: fax: [address] [address] Phone: tel: Referral ID Status Reason Start Date Expiration Date Visits Re quested Visits Authorized [id number] Closed 08/04/2025 08/04/2028 1 1 Reason for Visit * Diagnostic Imaging (Routine) - Closed Specialty Diagnoses / Procedures Referred By Contac t Referred To Contact Diagnoses PVD (peripheral vascular disease) Procedures Duplex Lower Extremity Art / Grafts - Bilateral CAR Annetta Brown APRN [address] [place] [address] Phone: tel: fax: [facility] [address] [place] [phone] Phone: tel: Referral ID Status Reason Start Date Expiration Date Visits Re quested Visits Authorized [id number] Closed 08/04/2025 08/04/2028 1 1 Encounter Details Date Type Department Care Team (Latest Contact Info) Description 09/12/2025 8:45 AM EST - 09/12/2025 11:59 PM EST Hospital Encounter [facility] [address] [facility] [address] [place] [address] PVD (peripheral vascular disease) Discharge [...] 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 [...] Description 10/13/2025 11:00 AM EST Office Visit [facility]ERY [address] [facility] [address] [place] [address] Annetta Brown, IRRIGATION SYSTEM OPERATOR [address] [facility] [address] [place] [address] documented as of this encounter Procedures Procedure Name Priority Date/Time Associated Diagnosis Comments DUPLEX LOWER EXTREMITY ART/GRAFTS BILATERAL CAR - COR/RAUL/MAD Routine 09/12/2025 9:45 AM EST PVD (peripheral vascular disease) documented in this encounter Results * DUPLEX LOWER EXTREMITY ART/GRAFTS BILATERAL CAR - COR/RAUL/MAD (09/12/2025 9:45 AM EST) SFA Prox PSV-Right 142.1 cm/s SFA Mid PSV-Right 91.4 cm/s SFA Distal PSV-Right 88.0 cm/s Popiteal A Prox PSV-Right 57.1 cm/s Popiteal A Distal PSV-Right 45.1 cm/s Ant Tibial A Prox PSV-Right 22.9 cm/s Peroneal Mid PSV-Right 55.2 cm/s SFA Prox PSV-Left 96.1 cm/s SFA Mid PSV-Left 102.7 cm/s SFA Distal PSV-Left 117.5 cm/s Popiteal A Prox PSV-Left 49.1 cm/s Popiteal A Distal PSV-Left 57.5 cm/s Ant Tibial A Distal PSV-Left 13.8 cm/s Peroneal Mid PSV-Left 90.1 cm/s Right groin SCIENTIFIC DIVER sys 211.6 cm/sec Left groin SCIENTIFIC DIVER sys 163.7 cm/sec SCIENTIFIC DIVER Prox PSV-Right 211.60 cm/s SCIENTIFIC DIVER Distal PSV-Right 177.50 cm/s DFA Prox PSV-Right 97.50 cm/s Ant Tibial A Mid PSV-Right 0.00 cm/s Ant Tibial A Distal PSV-Right 0.00 cm/s Rt. Tibeoperoneal PSV 57.70 cm/s EVAPORATOR SUPERVISOR Prox PSV-Right 0.00 cm/s EVAPORATOR SUPERVISOR Mid PSV-Right 0.00 cm/s EVAPORATOR SUPERVISOR Distal PSV-Right 0.00 cm/s SCIENTIFIC DIVER Prox PSV-Left 163.70 cm/s SCIENTIFIC DIVER Distal PSV-Left 145.00 cm/s DFA Prox PSV-Left 153.70 cm/s Ant Tibial A Prox PSV-Left 0.00 cm/s Ant Tibial A Mid PSV-Left 0.00 cm/s Lt. Tibperoneal PSV 82.30 cm/s EVAPORATOR SUPERVISOR Prox PSV-Left 0.00 cm/s EVAPORATOR SUPERVISOR Mid PSV-Left 0.00 cm/s EVAPORATOR SUPERVISOR Distal PSV-Left 0.00 cm/s Anatomical Region Laterality Modality Ultrasound Narrative 09/12/2025 11:57 AM EST Impression: Bilateral infrapopliteal peripheral arterial disease as detailed below Right posterior tibial artery is occluded Monophasic waveforms in the right peroneal artery. Right anterior tibial artery is occluded No flow detected within the right dorsalis pedis. Left posterior tibial and anterior tibial arteries are occluded. There is some distal left anterior tibial artery flow noted, likely via collaterals. Monophasic waveforms in the left peroneal artery Right Lower Arterial Findings The right proximal common femoral artery exhibits multiphasic, high resistive arterial flow and has plaque noted. The right distal common femoral artery exhibits multiphasic, high resistive arterial flow and has plaque noted. The right proximal deep femoral artery exhibits multiphasic, high resistive arterial flow and has plaque noted. The right proximal superficial femoral artery exhibits multiphasic, high resistive arterial flow and has plaque noted. The right mid superficial femoral artery exhibits multiphasic, high resistive arterial flow and has plaque noted. The right distal superficial femoral artery exhibits multiphasic, high resistive arterial flow and has plaque noted. The right proximal popliteal artery exhibits multiphasic, high resistive arterial flow and has plaque noted. The right distal popliteal artery exhibits multiphasic, high resistive arterial flow and has plaque noted. The right proximal anterior tibial artery exhibits monophasic, low resistive arterial flow and has plaque noted. The right mid anterior tibial artery flow is absent. The right distal anterior tibial artery has plaque noted and flow is absent. The right tibial peroneal trunk exhibits monophasic, low resistive arterial flow and has plaque noted. The right proximal posterior tibial artery has plaque noted and flow is absent. The right mid posterior tibial artery has plaque noted and flow is absent. The right distal posterior tibial artery has plaque noted and flow is absent. The right mid peroneal artery exhibits monophasic, low resistive arterial flow and has plaque noted. Additional findings: ANIBAL reported separately. No prior imaging for comparison. Left Lower Arterial Findings The left proximal common femoral artery exhibits multiphasic, high resistive arterial flow and has plaque noted. The left distal common femoral artery exhibits multiphasic, high resistive arterial flow and has plaque noted. The left proximal deep femoral artery exhibits multiphasic, high resistive arterial flow and has plaque noted. The left proximal superficial femoral artery exhibits multiphasic, high resistive arterial flow and has plaque noted. The left mid superficial femoral artery exhibits multiphasic, high resistive arterial flow and has plaque noted. The left distal superficial femoral artery exhibits multiphasic, high resistive arterial flow and has plaque noted. The left proximal popliteal artery exhibits multiphasic, high resistive arterial flow and has plaque noted. The left distal popliteal artery has plaque noted. The left proximal anterior tibial artery has plaque noted and flow is absent. The left mid anterior tibial artery has plaque noted and flow is absent. The left distal anterior tibial artery exhibits monophasic, low resistive arterial flow and has plaque noted. The left tibial peroneal trunk exhibits monophasic, low resistive arterial flow and has plaque noted. The left proximal posterior tibial artery has plaque noted and flow is absent. The left mid posterior tibial artery has plaque noted and flow is absent. The left distal posterior tibial artery has plaque noted and flow is absent. The left mid peroneal artery exhibits monophasic, low resistive arterial flow and has plaque noted. Additional findings: ANIBAL reported separately. No prior imaging for comparison. Additional Study Details The study is technically adequate for diagnosis. Cardiovascular history unknown. Annetta Brown APRN CV VASCULAR ORDERABLES Michelle l Result documented in this encounter Visit Diagnoses Diagnosis PVD (peripheral vascular disease) Unspecified peripheral vascular disease documented in this encounter Care Teams Gas Station Cashier Relationship Specialty Start Date End Date Toribio Barger MD [address] [place] [address] [place] [address] PCP - General Family Medicine 08/03/25 documented as of this encounter
--- OUTSIDE RECORDS SUMMARY | 2025-09-12 08:45 | XMS_ITS | Encounter Summary ---
Author Organization [facility] Address [address] [place] [address] Care Team Providers Care Bacon Stringer Name Role Phone Toribio Barger MD Primary Care Provider +1- [phone] Reason for Referral * Diagnostic Imaging (Routine) - Closed Specialty Diagnoses / Procedures Referred By Contac t Referred To Contact Diagnoses PVD (peripheral vascular disease) Procedures Doppler Ankle Brachial Index Single Level CAR Annetta Brown APRN [address] [place] [address] Phone: tel: fax: [address] [phone] Phone: tel: Referral ID Status Reason Start Date Expiration Date Visits Re quested Visits Authorized [id number] Closed 08/04/2025 11/03/2026 1 1 Reason for Visit * Diagnostic Imaging (Routine) - Closed Specialty Diagnoses / Procedures Referred By Contac t Referred To Contact Diagnoses PVD (peripheral vascular disease) Procedures Doppler Ankle Brachial Index Single Level CAR Annetta Brown APRN [address] [place] [address] Phone: tel: fax: [facility] [address] [place] [phone] Phone: tel: Referral ID Status Reason Start Date Expiration Date Visits Re quested Visits Authorized [id number] Closed 08/04/2025 11/03/2026 1 1 Encounter Details Date Type Department Care Team (Latest Contact Info) Description 09/12/2025 8:45 AM EST - 09/12/2025 11:59 PM EST Hospital Encounter [facility]PATIENT [facility] [address] [facility] [address] [place] [address] PVD (peripheral vascular disease) Discharge [...] Job Start Date Job End Date 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 [...] Description 10/13/2025 11:00 AM EST Office Visit [facility] [address] [facility] [address] [place] [address] Annetta Brown, FASHION MARKETER [address] [facility] [address] [place] [address] documented as of this encounter Procedures Procedure Name Priority Date/Time Associated Diagnosis Comments DOPPLER ANKLE BRACHIAL INDEX SINGLE LEVEL CAR Routine 09/12/2025 9:45 AM EST PVD (peripheral vascular disease) documented in this encounter Results * Doppler Ankle Brachial Index Single Level CAR (09/12/2025 9:45 AM EST) Upper arterial right arm brachial sys max 130 Upper arterial left arm brachial sys max 113 RIGHT POST TIBIAL SYS MAX 0 LEFT POST TIBIAL SYS MAX 70 RIGHT DORSALIS PEDIS SYS MAX 65 LEFT DORSALIS PEDIS SYS MAX 106 RIGHT GREAT TOE SYS MAX 40 LEFT GREAT TOE SYS MAX 67 RIGHT ANIBAL RATIO 0.50 LEFT ANIBAL RATIO 0.82 RIGHT TBI RATIO 0.31 LEFT TBI RATIO 0.52 Anatomical Region Laterality Modality Ultrasound Narrative 09/12/2025 11:53 AM EST No right posterior tibial artery waveform consistent with occlusion. Reduced monophasic waveform in the right dorsalis pedis artery Right ANIBAL is moderately reduced at 0.5. There is severe digital ischemia. Monophasic waveforms in the left posterior tibial and dorsalis pedis artery Left ANIBAL is mildly reduced at 0.8. There is moderate digital ischemia. Study Findings Right Sided Findings: Right Posterior Tibial: Waveform absent consistent with occlusion. Right Dorsalis Pedis: Monophasic, low resistive arterial flow noted. Right lower assessment findings include cyanosis, inflammation, thickened toenails and generalized hair loss. Left Sided Findings: Left Posterior Tibial: The pulse is detected w/ Doppler. Monophasic, low resistive arterial flow noted. Left Dorsalis Pedis: The pulse is detected w/ Doppler. Monophasic, low resistive arterial flow noted. Left lower assessment findings include cyanotic, inflammation, thickened toenails and generalized hair loss. No previous ANIBAL for comparison.. Additional Study Details The study is technically adequate for diagnosis. Cardiovascular history unknown. Annetta Brown APRN CV VASCULAR ORDERABLES Michelle l Result documented in this encounter Visit Diagnoses Diagnosis PVD (peripheral vascular disease) Unspecified peripheral vascular disease documented in this encounter Care Teams Bacon Stringer Relationship Specialty Start Date End Date Toribio Barger MD [address] [place] [address] PCP - General Family Medicine 08/03/25 documented as of this encounter
[2025-09-19 12:24] VITALS: BP 123/69; PULSE 89; RESP 20; TEMP 37.2; O2SAT 93; BMI 32.9
--- NOTE | 2025-09-19 12:38 | ECG_ITS ---
APPROVED REPORT Exam: Resting ECG HR:92 bpm ECG Measurements Heart Rate 92 AXES ND 212 P 50 QRSd 97 QRS 92 QT 355 T 57 QTc 404 Conclusion SINUS RHYTHM WITH FIRST DEGREE AV BLOCK BORDERLINE RIGHT AXIS DEVIATION [QRS AXIS > 90] LOW QRS VOLTAGE IN PRECORDIAL LEADS [QRS DEFLECTION < 1.0 mV IN CHEST LEADS] SEPTAL MYOCARDIAL INFARCTION , PROBABLY OLD [40+ ms Q WAVE IN V1/V2] ABNORMAL ECG UNCONFIRMED REPORT Electronically signed by : Sergey Glover, 09/19/2025 15:00:22
--- OUTSIDE RECORDS SUMMARY | 2025-09-19 12:40 | XMS_ITS | Encounter Summary ---
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 Not on file Not on file documented as of this encounter Plan of Treatment Upcoming Encounters Date Type Department Care Team (Late st Contact Info) Description 10/13/2025 11:00 AM EST Office Visit [facility] CARDIOTHORACIC SURGERY [address] [facility] [address] [place] [id number] Annetta Brown NUTS AND BOLTS ASSEMBLER [address] [facility] [address] [place] [address] documented as of this encounter Visit Diagnoses Not on filedocumented in this encounter Care Teams Bus System Operator Relationship Specialty Start Date End Date Toribio Barger MD [address] [place] [address] [place] [address] PCP - General Family Medicine 08/03/25 documented as of this encounter
--- OUTSIDE RECORDS SUMMARY | 2025-09-19 12:40 | XMS_ITS | Encounter Summary ---
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 NO increase in edema or discoloration or temperature changes noticed. At times right leg is a bit worse and they both seemworse in the evenings. She also states that she has been starting to complain of bilateral arm painagain a bit worse in the evenings. Patient does not like to take pain medications, so she was unsure what she should do. She is having ANIBAL and CTA today but wanted to call and update with this change. Please advise. documented in this encounter Plan of Treatment Upcoming Encounters Date Type Department Care Team (Late st Contact Info) Description 10/13/2025 11:00 AM EST Office Visit [facility] CARDIOTHORACIC SURGERY [address] [address] Annetta Brown, NIGHT PATROL INSPECTOR [address] [address] documented as of this encounter Visit Diagnoses Not on filedocumented in this encounter Care Teams Concrete Engineering Technician Relationship Specialty Start Date End Date Toribio Barger MD [address] [place] [address] PCP - General Family Medicine 08/03/25 documented as of this encounter
--- OUTSIDE RECORDS SUMMARY | 2025-09-19 12:40 | XMS_ITS | Clinical Summary ---
Author Organization [facility] Address [address] [place] [address] Care Team Providers Care Licensed Insurance Sales Agent Name Role Phone Toribio Barger MD Primary Care Provider +1- [phone] Allergies Active Allergy Reactions Criticality Noted Date Comments Statins Myalgia Low 08/03/2025 Medications levothyroxine (SYNTHROID, LEVOTHROID) 88 MCG tablet Take 1 tablet by mouth Every Morning. 06/14/2025 Active metoprolol succinate XL (TOPROL-XL) 25 MG 24 hr tablet Take 1 tablet by mouth Daily. I/2 tablet daily 06/14/2025 Active Farxiga 10 MG tablet Take 10 mg by mouth Daily. 06/14/2025 Active metFORMIN (GLUCOPHAGE) 1000 MG tablet Take 1 tablet by mouth 2 (Two) Times a Day With Meals. Active lisinopril-hydro chlorothiazide (PRINZIDE,ZESTOR ETIC) 10-12.5 MG per tablet Take 1 tablet by mouth Daily. Active furosemide (LASIX) 40 MG tablet Take 1 tablet by mouth As Needed. Active aspirin 81 MG EC tablet Take 1 tablet by mouth Daily. 08/03/2025 Active Active Problems Problem Noted Date Diagnosed Date PVD (peripheral vascular disease) 08/03/2025 Hypertension Hyperlipidemia Diabetes mellitus COPD (chronic obstructive pulmonary disease) Sleep apnea Encounters Date Type Department Care Team Description 09/12/2025 8:45 AM EST - 09/12/2025 11:59 PM EST Hospital Encounter [facility] NONINVASIVE LAB OUTPATIENT CENTER [address] [place] [address] [address] [place] [address] PVD (peripheral vascular disease) Discharge Disposition: Home or Self Care 09/12/2025 8:45 AM EST - 09/12/2025 11:59 PM EST Hospital Encounter [facility] NONINVASIVE LAB OUTPATIENT CENTER [address] [facility] [address] [place] [address] PVD (peripheral vascular disease) Discharge Disposition: Home or Self Care 09/12/2025 7:34 AM EST - 09/12/2025 11:59 PM EST Hospital Encounter [facility] [address] [place] [address] PVD (peripheral vascular disease) Discharge Disposition: Home or Self Care 09/12/[address] [facility] CARDIOTHORACIC SURGERY [address] [facility] [address] [place] [address] Charanjit Patten MD 09/12/2025 Travel 08/03/2025 2:00 PM EST Office Visit [facility] CARDIOTHORACIC SURGERY [address] 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 CARDIOTHORACIC SURGERY [address] [facility] [address] [place] [address] Annetta Brown, TIERCE FILLER [address] [facility] [address] [place] [address] Health Maintenance Due Date Last Done Comments DXA SCAN 1945 LIPID PANEL 1945 DIABETIC EYE EXAM 1955 DIABETIC FOOT EXAM 1955 URINE MICROALBUMIN-CREATININ E RATIO (uACR) 1955 TDAP/TD VACCINES (1 - Tdap) 1964 ZOSTER VACCINE (1 of 2) 1995 Pneumococcal Vaccine 50+ (2 of 2 - PPSV23, PCV20, or PCV21) 07/06/2019 05/11/2019 RSV Vaccine - Adults (1 - 1- dose 75+ series) 2020 COVID-19 Vaccine (5 - 2024-2 6 season) 2025 07/23/2022, 06/07/2021, 11/16/2020, Additional history exists ANNUAL WELLNESS VISIT 08/02/2025 HEMOGLOBIN A1C 08/02/2025 HEPATITIS C SCREENING 08/02/2025 INFLUENZA VACCINE Completed 08/08/2025, , 07/11/2023, Additional history exists Procedures Procedure Name Priority Date/Time Associated Diagnosis Comments DUPLEX LOWER EXTREMITY ART/GRAFTS BILATERAL CAR - COR/RAUL/MAD Routine 09/12/2025 9:45 AM EST PVD (peripheral vascular disease) DOPPLER ANKLE BRACHIAL INDEX SINGLE LEVEL CAR Routine 09/12/2025 9:45 AM EST PVD (peripheral vascular disease) CT ANGIO ABDOMINAL AORTA BILAT ILIOFEM RUNOFF Routine 09/12/2025 8:15 AM EST PVD (peripheral vascular disease) from Last 3 Months Results * DUPLEX LOWER EXTREMITY ART/GRAFTS BILATERAL [...] Peroneal Mid PSV-Left 90.1 cm/s Right groin BOLT MAKER sys 211.6 cm/sec Left groin BOLT MAKER sys 163.7 cm/sec BOLT MAKER Prox PSV-Right 211.60 cm/s BOLT MAKER Distal PSV-Right 177.50 cm/s DFA Prox PSV-Right 97.50 cm/s Ant Tibial A Mid PSV-Right 0.00 cm/s Ant Tibial A Distal PSV-Right 0.00 cm/s Rt. Tibeoperoneal PSV 57.70 cm/s TEST FACILITY ENGINEER Prox PSV-Right 0.00 cm/s TEST FACILITY ENGINEER Mid PSV-Right 0.00 cm/s TEST FACILITY ENGINEER Distal PSV-Right 0.00 cm/s BOLT MAKER Prox PSV-Left 163.70 cm/s BOLT MAKER Distal PSV-Left 145.00 cm/s DFA Prox PSV-Left 153.70 cm/s Ant Tibial A Prox PSV-Left 0.00 cm/s Ant Tibial A Mid PSV-Left 0.00 cm/s Lt. Tibperoneal PSV 82.30 cm/s TEST FACILITY ENGINEER Prox PSV-Left 0.00 cm/s TEST FACILITY ENGINEER Mid PSV-Left 0.00 cm/s TEST FACILITY ENGINEER Distal PSV-Left 0.00 cm/s Anatomical Region Laterality [...] Annetta Brown APRN CV VASCULAR ORDERABLES Michelle estela Result * Doppler Ankle Brachial Index Single Level [...] Annetta Brown APRN CV VASCULAR ORDERABLES Michelle palmer Result * CT Angio Abdominal Aorta Bilateral Iliofem [...] MD 09/16/2025 4:14 PM EST Workstation ID: [id number] Narrative 09/16/2025 4:[address] ANGIO [...] MD 09/16/2025 4:14 PM EST Workstation ID: [id number] Annetta Brown TIERCE FILLER IMG CT ORDERABLES Final Res ult from Last 3 Months Insurance [employer] PPO Care Teams Licensed Insurance Sales Agent Relationship Specialty Start Date End Date Toribio Barger MD [address] [place] [address] PCP - General Family Medicine 08/03/25
--- OUTSIDE RECORDS SUMMARY | 2025-09-19 12:40 | XMS_ITS | Encounter Summary ---
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 on file Not on file documented as of this encounter Plan of Treatment Upcoming Encounters Date Type Department Care Team (Late st Contact Info) Description 10/13/2025 11:00 AM EST Office Visit [facility] CARDIOTHORACIC SURGERY [address] [facility] [address] [place] [id number] Annetta Brown GRINDING WHEEL INSPECTOR [address] [facility] [address] [place] [address] documented as of this encounter Visit Diagnoses Not on filedocumented in this encounter Care Teams Director Of Religious Life Relationship Specialty Start Date End Date Toribio Barger MD [address] [place] [address] [place] [address] PCP - General Family Medicine 08/03/25 documented as of this encounter
[2025-09-19 13:04] LABS: Coronavirus 19, PCR Not Detected (NotDetected); Influenza A, PCR Not Detected (NotDetected); Influenza B, PCR Not Detected (NotDetected)
[2025-09-19 13:07] VITALS: BP 140/56; PULSE 93; O2SAT 93
--- NOTE | 2025-09-19 13:13 | XR_ITS ---
FINAL REPORT CLINICAL HISTORY: Chest congestion COMPARISON: 05/02/2025 FINDINGS: A single PA view of the chest was obtained. The cardiac and mediastinal silhouettes are within normal limits. Bibasilar opacities are present, likely atelectasis. There is no effusion or pneumothorax. IMPRESSION: Bibasilar opacities, likely atelectasis. Reviewed, Interpreted and Dictated by Ana Laura Valdivia MD Transcribed by Angie Galindo Authenticated and [facility]
[2025-09-19 13:22] LABS: Lactate Venous 1.9 mmol/L (0.4-2.0); VBG HCO3 31.3 mmol/L (23-30); VBG PH 7.31 mmol/L (7.31-7.41); VBG PO2 37.3 mmol/L (28-40)
[2025-09-19 13:26] LABS: Albumin Level 4.4 g/dl (3.5-5.0); Chloride 96 mmol/L (98-107); Potassium 4.0 mmoL/L (3.5-5.1); Sodium 138 mmol/L (136-145); VBG PCO2 64.0 mmol/L (35-51)
[2025-09-19 13:27] LABS: Hematocrit 43.9 % (37.0-47.0); Hemoglobin 13.5 g/dL (12.2-16.2); Immature Granulocytes % 0.4 %; Mean Corpuscular HGB Conc 30.8 g/dL (31.8-35.4); Mean Corpuscular Hemoglobin 28.5 pg (27.0-31.2); Mean Corpuscular Volume 92.6 fl (81-99); Nucleated Red Blood Cells % 0 %; Platelet Count 226 K/mm3 (142-424); Red Blood Count 4.74 M/mm3 (4.20-5.40); Red Cell Distribution Width-SD 45.0 fL; White Blood Count 13.9 K/mm3 (4.8-10.8)
[2025-09-19 13:29] LABS: Alanine Aminotransferase 18 U/L (12-78); Albumin/Globulin Ratio 1.4 (1.1-1.8); Alkaline Phosphatase 73 U/L (38-126); Anion Gap 11.0 mEq/L (5-15); Aspartate Amino Transferase 21 U/L (14-36); Bilirubin,Total 0.6 mg/dl (0.2-1.3); Blood Urea Nitrogen 18 mg/dl (7-17); Calcium 10.3 mg/dl (8.4-10.2); Carbon Dioxide 35 mmol/L (22.0-30.0); Creatinine Clearance Estimated 59 mL/min (50-200); Creatinine,Serum 0.80 mg/dl (0.52-1.04); Estimated Glomerular Filt Rate 69 ml/min (>60); GFR (African American) 84 ML/MIN (>60); Globulin 3.1 g/dL (1.3-3.2); Glucose 211 mg/dl (74-100); Total Protein,Serum 7.5 g/dl (6.3-8.2)
--- NOTE | 2025-09-19 13:31 | ED_ITS ---
<Statement entered by Evelin Glover MD - 09/20/25 23:22> I was consulted by the RAMIRO, and we discussed the complexity of the problems being addressed. I approved the treatment and management plan for this patient's care in the emergency department, thus performing a substantive portion of the medical decision making. Evelin Glover MD, RAFI, FACEP Discharge Plan Disposition Patient Disposition: Home, Self-Care Condition: Good Prescriptions Prescriptions: New prednisone 50 mg tablet 50 mg PO DAILY 5 Days Qty: 5 0RF Rx Instructions: Please begin 1 day after ED visit albuterol sulfate 90 mcg/actuation HFA aerosol inhaler 4 inh inhalation Q4H PRN (Reason: shortness of breath or wheezing) Qty: 8.5 0RF Rx Instructions: 4 puffs every 4 hours for 48 hours then as needed for shortness of breath or wheezing following [id number] 2-30-10 mg/5 mL syrup 5 ml PO Q6H PRN (Reason: cold symptoms) 7 Days Qty: 118 0RF amoxicillin-pot clavulanate 875-125 mg tablet 1 tab PO BID 7 Days Qty: 14 0RF No Action (DME) lancets [TRUEplus Lancets] 33 gauge misc See Rx Instructions .ROUTE .MEDSUPPLY Qty: 100 Rx Instructions: As directed (DME) True Metrix Glucose Test Strip Strip See Rx Instructions .ROUTE .MEDSUPPLY Qty: 10 Rx Instructions: As directed metformin 500 mg tablet 1,000 mg PO BID 90 Days Qty: 360 0RF Breztri Aerosphere 160-9-4.8 mcg/actuation HFA aerosol inhaler See Rx Instructions .ROUTE .COMPLEX Qty: 3 3RF Dose Instruction: INHALE 2 PUFFS TWICE DAILY (RT ONLY) Rx Instructions: INHALE 2 PUFFS TWICE DAILY (RT ONLY) furosemide 40 mg tablet 40 mg PO DAILY 30 Days Qty: 30 1RF metoprolol succinate 25 mg tablet extended release 24 hr 12.5 mg PO DAILY 90 Days Qty: 45 2RF lisinopril-hydrochlorothiazide 10-12.5 mg tablet 1 tab PO DAILY 90 Days Qty: 90 0RF dapagliflozin propanediol [Farxiga] 10 mg tablet 10 mg PO DAILY 90 Days Qty: 90 0RF azithromycin 250 mg tablet 250 mg PO DAILY 9 Days Qty: 9 0RF Rx Instructions: start on day 2 of therapy prednisone 20 mg tablet 20 mg PO BID 5 Days Qty: 10 0RF azithromycin 500 mg tablet 500 mg PO ONCE 1 Days Qty: 1 0RF levothyroxine 88 mcg tablet 88 mcg PO DAILYDM 90 Days Qty: 90 0RF Referrals Follow up/Referrals: Toribio Barger MD [Primary Care Provider, Internal Medicine] - See instructions Yolanda Morillo MD [Physician, Pulmonology] - See instructions Activity Restrictions/Add. Instructions Additional Instructions/Restrictions: Your symptoms today are consistent with a COPD exacerbation. Antibiotics steroids and inhaler have been prescribed in addition to a cough medicine to your pharmacy. Please follow-up with our director medicaid as referred. Return to the emergency room with any significant worsening of her symptoms. No other acute cardiopulmonary emergency identified today. Clinical Impressions Clinical Impression: COPD exacerbation Instructions Patient Instructions: Chronic Obstructive Pulmonary Disease, DI for Chronic Obstructive Pulmonary Disease Print Language Print Language: Wolof Discharge ED Provider: Evelin Glover General Chief Complaint: Shortness of Breath/Dyspnea Stated Complaint: SOA, congestion Time Seen by Provider: 09/19/25 12:55 Mode of Arrival: Wheelchair Source of Information: Patient and Relative Description of Symptoms (Recalled from ER Triage Doc. by RN): PT presents with shortness of breath and congestion starting this morning. Pt denies any other symptoms other than some bilateral leg/feet numbness, but family states she has been seeing a cardiovascular [employer] regarding that. Pt normally wears oxygen at home 3L baseline. Related Data Home Medications ?Medication ?Instructions ?Recorded ?Confirmed blood sugar diagnostic (True #10 ea 03/21/22 06/28/25 Metrix Glucose Test Strip) lancets 33 gauge (TRUEplus Lancets) #100 ea 03/21/22 1 Previous Rx's ?Medication ?Instructions ?Recorded budesonide 160 mcg-glycopyr 9 See Rx Instructions .Rou te 12/13/24 mcg-formot 4.8 mcg/actuation HFA .COMPLEX #3 ea inhaler (Breztri Aerosphere) metformin 500 mg tablet 1,000 mg (2 x 500 mg) PO BID 12/13/24 Diabetes 90 days #360 tabs furosemide 40 mg tablet 40 mg PO DAILY Edema 30 days #30 08/13/25 tabs dapagliflozin propanediol 10 mg 10 mg PO DAILY 90 days #90 tabs 06/14/25 tablet (Farxiga) lisinopril 10 1 tab PO DAILY Hypertension 90 06/14/25 mg-hydrochlorothiazide 12.5 mg days #90 tabs tablet metoprolol succinate 25 mg 12.5 mg (1/2 x 25 mg) PO DA MISTI 90 06/14/25 tablet,extended release 24 hr days #45 tabs azithromycin 250 mg tablet 250 mg PO DAILY 9 days #9 t abs 07/29/25 azithromycin 500 mg tablet 500 mg PO ONCE 1 day #1 tab 07/29/25 prednisone 20 mg tablet 20 mg PO BID 5 days #10 tabs 07/29/25 levothyroxine 88 mcg tablet 88 mcg PO DAILYDM 90 days #90 tabs 09/08/25 albuterol sulfate 90 mcg/actuation 4 inh inhalation Q4 H PRN shortness 09/19/25 aerosol inhaler of breath or wheezing #8.5 g chip amoxicillin 875 mg-potassium 1 tab PO BID 7 days #14 t abs 09/19/25 clavulanate 125 mg tablet uhogpyavqnzuext-zckuhdpovtriuwi-TT 5 ml PO Q6H PRN col d symptoms 7 09/19/25 2 mg-30 mg-10 mg/5 mL oral syrup days #118 mL prednisone 50 mg tablet 50 mg PO DAILY 5 days #5 tab s 09/19/25 Allergies Allergy/AdvReac Type Severity Reaction Status Date / Time [id number]-[id number] Reductase AdvReac myalgias Verified 06/28/25 10:33 Inhibitor PFSH PFS Disclaimer: The information contained in this section may have been updated after the patient was seen, as this information can be updated by other users. Medical History (Updated 09/19/25 @ 14:31 by Evelin Glover MD) Peripheral artery disease Redness and swelling of lower leg Fatigue Edema Dyspnea Kidney stone History of smoking 30 or more pack years History of COPD Chronic respiratory failure with hypoxia Dyspnea on exertion Pneumonia Acute and chronic respiratory failure with hypoxia COPD exacerbation Sinusitis Depression Obesity (BMI 30.0-34.9) REAGAN (obstructive sleep apnea) Hypothyroid Type 2 diabetes mellitus COPD exacerbation Surgical History H/O lithotripsy Family History Father Heart attack Hypertension Sister Heart attack Brother Hypertension Social History Smoking Status: Former smoker years smoked: 30 alcohol intake: never substance use type: denies use current occupational status: retired Travel in the last 8 weeks?: None household members: none housing: house current occupational exposures/hazards: No caffeine: Yes Have you lived/traveled outside [place] in past 30 days?: No Contact w/someone who lives/traveled outside [place] past 30 days?: No Exposure to someone with infectious disease in past 14 days?: No Do you have a fever (greater than 100.4 F or 38 C)?: No Have you tested positive for COVID-19?: No Exposed to someone with COVID-19 in past 14 days?: No Do you have a sore throat?: No Do you have a cough?: No Do you have any weakness?: No Do you have any diarrhea?: No Are you experiencing any unusual bleeding?: No Do you have any muscle aches/pain?: No Do you have any abdominal pain?: No Are you experiencing loss of taste or smell?: No Other Medical History Have you received the Flu Vaccine for this season: No Have you received the Pneumonia Vaccine: Yes ROS Obtained: Yes Systems reviewed as appropriate & no additional complaints except as documented Physical Exam General General appearance: alert Respiratory Respiratory exam: Present other (Decreased breath sounds in all carvajal; no wheezing or rhonchi noted); Absent wheezes or stridor Cardiovascular Cardiovascular exam: Present regular rate Neurological Exam Neurological exam: Present alert and oriented X3 HEART Score HEART Score HEART Score assessment performed?: No Critical Care Critical Care Time Critical Care Time: No Medical Decision Making Leandro Inquiry Pt receiving controlled substance: No Vital Signs Vital Signs: 09/19/25 12:24 09/19/25 13:07 09/19/25 13:07 Temperature 99.0 F Temperature Source Oral Pulse Rate 93 H Pulse Rate [Right] 89 Respiratory Rate 20 Blood Pressure 140/56 L Blood Pressure [Right Arm] 123/69 Blood Pressure Mean 87 Blood Pressure Mean [Right Arm] 87 Blood Pressure Source Blood Pressure Source [Right Arm] Automatic Cuff Blood Pressure Position Blood Pressure Position [Right Arm] Sitting 02 Sat by Pulse Oximetry 93 L 93 L 93 L Oxygen Delivery Method Nasal Cannula Nasal Cannula Nasal Cannula Oxygen Flow Rate (LPM) 3 3 3 09/19/25 13:52 09/19/25 14:02 09/19/25 14:47 Temperature 98.9 F Temperature Source Pulse Rate 92 H 95 H 92 H Pulse Rate [Right] Respiratory Rate 20 Blood Pressure 158/75 H 174/61 H 174/61 H Blood Pressure [Right Arm] Blood Pressure Mean Blood Pressure Mean [Right Arm] Blood Pressure Source Automatic Cuff Blood Pressure Source [Right Arm] Blood Pressure Position Supine Blood Pressure Position [Right Arm] 02 Sat by Pulse Oximetry 92 L 94 L Oxygen Delivery Method Nasal Cannula Oxygen Flow Rate (LPM) 3 Lab Data Lab results reviewed: Yes I reviewed the patient's lab results. Labs: Lab Results 09/19/25 12:31: SARS-CoV-2 (PCR) Not detected, Influenza A Untype (PCR) Not detected, Influenza Type B (PCR) Not detected 09/19/25 13:04: WBC 13.9 H, RBC 4.74, Hgb 13.5, Hct 43.9, MCV 92.6, MCH 28.5, M CHC 30.8 L, RDW 13.2, Plt Count 226, MPV 10.5 H, Neut % (Auto) 80.7 H, Lymph % (Auto) 11.2, [place] % (Auto) 6.8, Eos % (Auto) 0.5, Baso % (Auto) 0.4, Neut # (Auto) 11.2 H, Lymph # (Auto) 1.6, [place] # (Auto) 0.9, Eos # (Auto) 0.1, Baso # (Auto) 0.1, D-Dimer 0.74 H, VBG pH 7.31, VBG pCO2 64.0 H, VBG pO2 37.3, VBG HCO3 31.3 H, VBG Total CO2 33.2 H, VBG O2 Saturation 68.3, VBG Base Excess 5.0 H, VBG Lactic Acid 1.9, Sodium 138, Potassium 4.0, Chloride 96 L, Carbon Dioxide 35 H, Anion Gap 11.0, BUN 18 H, Creatinine 0.80, Estimated Creat Clear 59, Estimated GFR 69, Est GFR ( Amer) 84, Glucose 211 H, Calcium 10.3 H, Total Bilirubin 0.6, AST 21, ALT 18, Alkaline Phosphatase 73, Troponin I < 0.01, NT-Pro-B Natriuret Pep 80.5, Total Protein 7.5, Albumin 4.4, Globulin 3.1, Albumin/Globulin Ratio 1.4 09/19/25 13:04 09/19/25 13:04 Response Orders (Tests/Meds): ED MEDICATIONS Discontinued Medications Generic Name Dose Route Start Last Admin Trade Name Freq PRN Reason Stop Dose Admin Albuterol/Ipratropium 3 ml 09/19/25 13:30 09/19/25 13:35 Ipratropium/Albuterol 3 Ml Neb IH 10/19/25 13:29 3 ml Q1H ED Administration Amoxicillin/Clavulanate Potassium 1 each 09/19/25 14:27 09/19/25 14:42 Amoxicillin/Clavulanate Potassium 875/125mg Tablet PO 09/19/25 14:28 1 each ONCE ONE Administration Methylprednisolone Sodium Succinate 125 mg 09/19/25 13:13 09/19/25 13:35 Methylprednisolone Sod Succ 125mg Vial IV 09/19/25 13:14 125 mg ONCE ONE Administration Ondansetron HCl 4 mg 09/19/25 13:12 09/19/25 13:35 Ondansetron 4mg/2ml Vial IV 09/19/25 13:13 4 mg ONCE ONE Administration ORDERS Category Date Time Status CXR --portable [XR chest portable] Stat Exams 09/19/25 13:13 Completed BNP [NT Pro Brain Natriuretic Pep.] Stat Lab 09/19/25 13:04 Completed CBC w/Auto Diff [Complete Blood Count Auto Diff] Stat Lab 09/19/25 13:04 Completed CMP [Comprehensive Metabolic Panel] Stat Lab 09/19/25 13:04 Completed D-Dimer Stat Lab 09/19/25 13:04 Completed Rapid PCR Covid and Flu A/B Stat Lab 09/19/25 12:31 Completed Trop I [Troponin I] Stat Lab 09/19/25 13:04 Completed Blood Culture Stat Micro 09/19/25 13:29 Received VBG [Venous Blood Gas] Stat RT 09/19/25 13:04 Completed MDM Narrative Medical Decision Narrative: In summary patient is a 79-year-old female who presents to the emergency department for evaluation of shortness of breath. Patient is hemodynamically stable upon arrival, afebrile throughout ED course. Physical exam remarkable for reduced aeration in all lung carvajal but negative for wheezing, stridor, or other adventitious sounds. Otherwise patient exam generally unremarkable with no new or concerning findings.. Differential diagnosis includes COPD exacerbation, COVID, influenza. Initial workup will be conducted with labs, chest x-ray, and EKG. Initial interventions include breathing treatments and IV steroids. Initial workup reviewed by me shows mild leukocytosis of 14 on CBC. Otherwise labs generally unremarkable with no significant electrolyte derangement, kidney injury, or transaminitis on CMP and no significant anemia on CBC. COVID and flu panel is negative.. Upon repeat evaluation patient physical exam has improved; she is sitting more straight and has a more relaxed work of breathing and during initial evaluation. Results and plan of care discussed at bedside and patient verbalizes understanding of and is amenable to full plan. Antibiotic sent to patient's pharmacy of choice along with other medicines for respiratory distress. Patient is alert and oriented, nontoxic and afebrile, GCS 15; given this and findings during ED course, she is stable and appropriate for discharge home. I informally interpreted the patient's chest x-ray to be unremarkable with no concerning findings such as pneumonia or edema. Patient's d-dimer elevated at 0.74 but per YEARS Algorithm for PE a PE is excluded; rules out PE (0.43% with symptomatic VTE during 3 month follow-up).
[2025-09-19 13:34] LABS: D-Dimer 0.74 ug/mL (0.0-0.5)
[2025-09-19] MEDS: METHYLPREDNISOLONE SOD SUCC 125MG VIAL 125 MG IV (13:35)
[2025-09-19] MEDS: ONDANSETRON 4MG/2ML VIAL 4 MG IV (13:35)
[2025-09-19] MEDS: IPRATROPIUM/ALBUTEROL 3 ML NEB IH (13:35)
[2025-09-19 13:39] LABS: NT Pro Brain Natriuretic Pep. 80.5 pg/mL (0-450)
[2025-09-19 13:42] LABS: Troponin I < 0.01 ng/ml (0.00-0.034)
[2025-09-19 13:52] VITALS: BP 158/75; PULSE 92; O2SAT 92
[2025-09-19 14:02] VITALS: BP 174/61; PULSE 95; O2SAT 94
[2025-09-19] MEDS: AMOXICILLIN/CLAVULANATE POTASSIUM 875/125MG TABLET 1 EACH PO (14:42)
[2025-09-19 14:47] VITALS: BP 174/61; PULSE 92; RESP 20; TEMP 37.2; O2SAT 95
== END 2025-09-19 14:56 | disposition home or self-care (01) ==
PROVIDERS: Physician Assistant; Emergency Provider Student in an Organized Health Care Education/Training Program; PCP Family Medicine
DX: J44.1 Chronic obstructive pulmonary disease with (acute) exacerbation (principal); Z99.81 Dependence on supplemental oxygen; Z87.891 Personal history of nicotine dependence
CPT/HCPCS: 71045; 80053; 82803; 83880; 84484; 85025; 85378; 87040; 87636; 93005; 96374; 96375; 99285; J2405; J2919